=== PATIENT | female | born 1960 | race Two or more races ===

== ENCOUNTER → 2020-01-14 12:15 | Outpatient (BNVA) | payer OTHER, SELFPAY | PROVIDERS: PCP Internal Medicine; Referring Provider Internal Medicine; Visit Provider Dietitian, Registered | DX: Z76.89 Persons encountering health services in other specified circumstances (principal) ==

== ENCOUNTER 2020-03-31 08:14 | Outpatient (REF) | payer OTHER, SELFPAY ==
[2020-03-31 09:11] LABS: MANUAL DIFF FLAG NO
[2020-03-31 09:14] LABS: Basophils Absolute Auto 0.1 X10*3/uL (0.0-0.2); Basophils Percent Auto 0.8 % (0-2); Eosinophils Absolute Auto 0.2 X10*3/uL (0.0-0.4); Eosinophils Percent Auto 2.4 % (0-4); Hematocrit 46.8 % (37-47); Hemoglobin 15.3 g/dl (12.0-16.0); Imm Gran Abs Auto 0.02 X10*3/uL (0.00-0.03); Imm Gran Pct Auto 0.3 % (0.0-0.4); Immature Retic Fraction 9.6 % (3.0-15.9); Lymphocytes Absolute Auto 2.1 X10*3/uL (1.2-4.9); Lymphocytes Percent Auto 33.2 % (20-40); Mean Corpuscular HGB Conc 32.7 g/dl (31.0-35.0); Mean Corpuscular Hemoglobin 27.9 pg (27.0-33.0); Mean Corpuscular Volume 85.2 fL (80-98); Mean Platelet Volume 9.3 fL (9.4-12.3); Monocytes Absolute Auto 0.6 X10*3/uL (0.1-1.2); Monocytes Percent Auto 9.1 % (2-11); Neutrophils Absolute Auto 3.4 X10*3/uL (2.0-8.3); Neutrophils Percent Auto 54.2 % (45-73); Platelet Count 269 X10*3/uL (160-400); Red Blood Count 5.49 X10*6/uL (4.20-5.50); Retic HGB Equivalent 32.7 pg (30.0-35.0); Reticulocyte Percent 1.6 % (0.5-1.8); Reticulocytes Absolute 0.086 X10*6/uL (0.026-0.095); White Blood Count 6.3 X10*3/uL (4.8-10.8)
[2020-03-31 09:43] LABS: Alanine Aminotransferase 12 U/L (0-31); Albumin Level 4.3 g/dL (3.5-5.0); Alkaline Phosphatase 81 U/L (39-117); Anion Gap 12 (12-20); Aspartate Amino Transferase 16 U/L (5-31); Bilirubin Total 0.7 mg/dL (0.0-1.0); Blood Urea Nitrogen 18 mg/dL (9-16); Calcium 9.9 mg/dL (8.4-10.2); Carbon Dioxide 32 mmol/L (22-29); Chloride 103 mmol/L (96-108); Cholesterol 237 mg/dL; Estimated Glomerular Filt Rate > 60; Glucose Random 94 mg/dL (60-115); HDL Cholesterol 87 mg/dL; Iron 112 mcg/dL (30-160); LDL Cholesterol Calculated 134 mg/dl; Percent Iron Saturation 29 % (15-50); Potassium 4.6 mmol/l (3.3-5.1); Sodium 142 mmol/L (135-145); Total Iron Binding Capacity 381 mcg/dL (228-428); Total Protein 7.5 g/dL (6.5-8.0); Triglycerides 81 mg/dL; Unsaturated Iron Binding 269 ug/dL
[2020-03-31 10:05] LABS: Ferritin 72 ng/mL (10-250); Free T4 (Free Thyroxine) 0.96 ng/dL (0.71-1.85); Thyroid Stimulating Hormone 2.55 uIU/mL (0.32-4.0); Vitamin D 25-OH Total 34.8 ng/mL (>30)
[2020-03-31 11:03] LABS: Folate > 20.0 ng/mL (> or = 4.0); Vitamin B12 632 pg/mL (200-900)
== END 2020-03-31 08:15 | disposition home or self-care (01) ==
LOC: HO.LAB 08:14
PROVIDERS: PCP Internal Medicine; Visit Provider Internal Medicine
DX: E78.00 Pure hypercholesterolemia, unspecified (principal); E03.9 Hypothyroidism, unspecified; I10 Essential (primary) hypertension; R79.89 Other specified abnormal findings of blood chemistry
CPT/HCPCS: 36415; 80053; 80061; 82306; 82607; 82728; 82746; 83540; 84439; 84443; 85025; 85045

== ENCOUNTER → 2020-05-21 09:07 | Outpatient (REF) | payer OTHER, SELFPAY ==
--- NOTE | 2020-05-21 09:14 | CA_ITS ---
Acquisition Time: 2020-05-21 09:22:19 Total Exercise Time: 00:07:00 Test Indications: Chest Pain Medications: GABAPENTIN LEVOTHYROXINE SIMVASTATIN Protocol: DARWIN Max HR: 151 BPM 93% of Pred: 161 BPM Max BP: 152/064 mmHG Max Work Load: 8.5 METS Exercise stress test using Darwin protocol, total of 7 min METS 8.5 and TAPHR up to 93 %. Pt tolerated well, denies any anginal sx. EKG with isolated PVC's, no ischemic changes seen in peak exercise or in recovery. Normotensive response to exercise. Test reviewed with DR. Dill Referred By: Tory Lyle Overread By: Tiana Faye
== END ==
LOC: HO.CARD 09:07
PROVIDERS: Visit Provider Internal Medicine
DX: R07.9 Chest pain, unspecified (principal)
CPT/HCPCS: 93017

== ENCOUNTER 2020-06-10 15:49 | Outpatient (REF) | payer OTHER, SELFPAY ==
--- NOTE | ~2020-06-10 | MM_ITS ---
EXAMINATION: MM SCREENING DIGITAL BREAST TOMOSYNTHESIS, BILATERAL CLINICAL INFORMATION: Screening. Asymptomatic. The lifetime risk of breast cancer based on the Tyrer-Cuzick Model is 4%. COMPARISON: Mammography: 01/31/2018, 12/29/2016 TECHNIQUE: Digital breast tomosynthesis is performed in both the craniocaudal and mediolateral oblique views along with computer-aided detection (CAD). Synthesized 2D images are generated from the tomosynthesis. FINDINGS: The breasts are almost entirely fatty (ACR BI-RADS breast composition Category a). Background stromal markings are stable. There are incidental bilateral scattered round and vascular calcifications. There are no significant masses, abnormal calcifications, or other abnormalities. The axillary and skin contours are unremarkable. No significant changes. MM/MM tomosynthesis screening BI IMPRESSION: No mammographic evidence of malignancy. ASSESSMENT: BI-RADS 1: Negative RECOMMENDATION: Routine annual mammography screening. This patient's information was entered into a reminder system with a target due date for their next mammogram.
== END 2020-06-10 15:50 | disposition home or self-care (01) ==
LOC: HO.MAMMO 15:49
PROVIDERS: PCP Internal Medicine; Visit Provider Internal Medicine
DX: Z12.31 Encounter for screening mammogram for malignant neoplasm of breast (principal)
CPT/HCPCS: 77063; 77067

== ENCOUNTER 2020-10-04 10:05 | Outpatient (REF) | payer OTHER, SELFPAY ==
--- NOTE | ~2020-10-04 | XR_ITS ---
EXAMINATION: XR SHOULDER, BILATERAL CLINICAL INFORMATION: Bilateral shoulder pain. COMPARISON: Right shoulder 05/18/2009. TECHNIQUE: 4 views of each shoulder. FINDINGS: Right Shoulder: Mild acromioclavicular and glenohumeral osteoarthritis which has progressed since the previous study. No fracture or focal osseous lesion. No suspicious soft tissue calcification. Left Shoulder: Mild glenohumeral and acromioclavicular osteoarthritis. No fracture. No focal osseous lesion or suspicious soft tissue calcification. XR/XR shoulder LT min 2V IMPRESSION: Mild symmetric glenohumeral and acromioclavicular osteoarthritis.
--- NOTE | ~2020-10-04 | XR_ITS ---
EXAMINATION: XR SHOULDER, BILATERAL CLINICAL INFORMATION: Bilateral shoulder pain. COMPARISON: Right shoulder 05/18/2009. TECHNIQUE: 4 views of each shoulder. FINDINGS: Right Shoulder: Mild acromioclavicular and glenohumeral osteoarthritis which has progressed since the previous study. No fracture or focal osseous lesion. No suspicious soft tissue calcification. Left Shoulder: Mild glenohumeral and acromioclavicular osteoarthritis. No fracture. No focal osseous lesion or suspicious soft tissue calcification. XR/XR shoulder RT min 2V IMPRESSION: Mild symmetric glenohumeral and acromioclavicular osteoarthritis.
== END 2020-10-04 10:06 | disposition home or self-care (01) ==
LOC: HO.XRAY 10:05
PROVIDERS: PCP Internal Medicine; Visit Provider Internal Medicine
DX: M25.511 Pain in right shoulder (principal); M25.512 Pain in left shoulder
CPT/HCPCS: 73030

== ENCOUNTER 2021-05-19 09:26 | Outpatient (REF) | payer OTHER, SELFPAY ==
--- NOTE | ~2021-05-19 | XR_ITS ---
EXAMINATION: XR SHOULDER, RIGHT CLINICAL INFORMATION: Shoulder pain COMPARISON: 10/04/2020 TECHNIQUE: AP external rotation, Grashey, scapular Y, and axillary views of the right shoulder. FINDINGS: Normal alignment. Mild degenerative sclerosis and spurring along the greater tuberosity of the humeral head. Minimal spurring along the glenoid rim. Mild acromioclavicular osteoarthritis. No fracture. No focal osseous lesion or suspicious soft tissue calcification. XR/XR shoulder RT min 2V IMPRESSION: Mild glenohumeral and acromioclavicular osteoarthritis. No change.
[2021-05-19 09:54] LABS: MANUAL DIFF FLAG NO
[2021-05-19 10:15] LABS: Basophils Percent Auto 0.7 % (0-2); Eosinophils Absolute Auto 0.1 X10*3/uL (0.0-0.4); Eosinophils Percent Auto 1.8 % (0-4); Hematocrit 45.4 % (37.0-47.0); Hemoglobin 14.5 g/dl (12.0-16.0); Imm Gran Abs Auto 0.02 X10*3/uL (0.00-0.03); Imm Gran Pct Auto 0.3 % (0.0-0.4); Lymphocytes Absolute Auto 2.2 X10*3/uL (1.2-4.9); Mean Corpuscular HGB Conc 31.9 g/dl (31.0-35.0); Mean Corpuscular Hemoglobin 26.8 pg (27.0-33.0); Mean Corpuscular Volume 83.8 fL (80.0-98.0); Mean Platelet Volume 9.7 fL (9.4-12.3); Monocytes Absolute Auto 0.5 X10*3/uL (0.1-1.2); Monocytes Percent Auto 8.2 % (2-11); Neutrophils Absolute Auto 3.2 x10*3/uL (2.0-8.3); Platelet Count 273 X10*3/uL (160-400); Red Blood Count 5.42 X10*6/uL (4.20-5.50); Red Cell Distribution Width 14.2 % (11.0-16.0)
[2021-05-19 10:50] LABS: Alanine Aminotransferase 12 U/L (0-31); Albumin Level 4.3 g/dL (3.5-5.0); Alkaline Phosphatase 73 U/L (39-117); Anion Gap 10 (12-20); Aspartate Amino Transferase 17 U/L (5-31); Bilirubin Total 0.6 mg/dL (0.0-1.0); Blood Urea Nitrogen 19 mg/dL (9-16); Carbon Dioxide 30 mmol/L (22-29); Chloride 106 mmol/L (96-108); Cholesterol 240 mg/dL; Estimated Glomerular Filt Rate > 60; Glucose Random 96 mg/dL (60-115); HDL Cholesterol 86 mg/dL; LDL Cholesterol Calculated 142 mg/dl; Potassium 4.5 mmol/L (3.3-5.1); Sodium 141 mmol/L (135-145); Total Protein 7.4 g/dL (6.5-8.0); Triglycerides 64 mg/dL
[2021-05-19 11:03] LABS: Free T4 (Free Thyroxine) 1.01 ng/dL (0.71-1.85); Vitamin D 25-OH Total 28.8 ng/mL (>30)
[2021-05-19 11:42] LABS: Folate > 20.0 ng/mL (> or = 4.0); Vitamin B12 578 pg/mL (200-900)
== END 2021-05-19 09:27 | disposition home or self-care (01) ==
LOC: HO.XRAY 09:26
PROVIDERS: PCP Internal Medicine; Visit Provider Internal Medicine
DX: M25.511 Pain in right shoulder (principal); E78.00 Pure hypercholesterolemia, unspecified
CPT/HCPCS: 36415; 73030; 80053; 80061; 82306; 82607; 82746; 84439; 84443; 85025

== ENCOUNTER 2021-06-15 09:22 | Outpatient (REF) | payer OTHER, SELFPAY ==
[2021-06-15 09:58] LABS: MANUAL DIFF FLAG NO
[2021-06-15 10:14] LABS: Basophils Absolute Auto 0.1 X10*3/uL (0.0-0.2); Basophils Percent Auto 0.7 % (0-2); Eosinophils Absolute Auto 0.1 X10*3/uL (0.0-0.4); Eosinophils Percent Auto 1.3 % (0-4); Hematocrit 44.6 % (37.0-47.0); Hemoglobin 14.1 g/dl (12.0-16.0); Imm Gran Abs Auto 0.01 X10*3/uL (0.00-0.03); Imm Gran Pct Auto 0.1 % (0.0-0.4); Lymphocytes Absolute Auto 1.9 X10*3/uL (1.2-4.9); Lymphocytes Percent Auto 27.8 % (20-40); Mean Corpuscular HGB Conc 31.6 g/dl (31.0-35.0); Mean Corpuscular Hemoglobin 27.1 pg (27.0-33.0); Mean Corpuscular Volume 85.8 fL (80.0-98.0); Mean Platelet Volume 9.4 fL (9.4-12.3); Monocytes Absolute Auto 0.4 X10*3/uL (0.1-1.2); Monocytes Percent Auto 6.4 % (2-11); Neutrophils Absolute Auto 4.2 x10*3/uL (2.0-8.3); Neutrophils Percent Auto 63.7 % (45-73); Platelet Count 272 X10*3/uL (160-400); Red Cell Distribution Width 14.1 % (11.0-16.0); White Blood Count 6.7 X10*3/uL (4.8-10.8)
[2021-06-15 10:51] LABS: Alanine Aminotransferase 18 U/L (0-31); Albumin Level 4.2 g/dL (3.5-5.0); Alkaline Phosphatase 77 U/L (39-117); Anion Gap 10 (12-20); Aspartate Amino Transferase 18 U/L (5-31); Bilirubin Total 0.5 mg/dL (0.0-1.0); Blood Urea Nitrogen 23 mg/dL (9-16); Calcium 9.9 mg/dL (8.4-10.2); Carbon Dioxide 32 mmol/L (22-29); Chloride 104 mmol/L (96-108); Estimated Glomerular Filt Rate > 60; Glucose Random 110 mg/dL (60-115); Potassium 4.1 mmol/L (3.3-5.1); Sodium 142 mmol/L (135-145); Total Protein 7.1 g/dL (6.5-8.0)
[2021-06-15 11:01] LABS: Thyroid Stimulating Hormone 0.48 uIU/mL (0.32-4.0)
== END 2021-06-15 09:23 | disposition home or self-care (01) ==
LOC: HO.LAB 09:22
PROVIDERS: PCP Internal Medicine; Visit Provider Clinical Nurse Specialist Psychiatric/Mental Health, Adult
DX: Z79.899 Other long term (current) drug therapy (principal)
CPT/HCPCS: 36415; 80053; 84443; 85025

== ENCOUNTER 2021-11-10 10:32 | Outpatient (REF) | payer OTHER, SELFPAY ==
[2021-11-10 11:35] LABS: Alanine Aminotransferase 14 U/L (0-31); Albumin Level 4.3 g/dL (3.5-5.0); Alkaline Phosphatase 84 U/L (39-117); Anion Gap 14 (12-20); Aspartate Amino Transferase 16 U/L (5-31); Bilirubin Total 0.7 mg/dL (0.0-1.0); Blood Urea Nitrogen 15 mg/dL (9-16); Calcium 9.9 mg/dL (8.4-10.2); Carbon Dioxide 27 mmol/L (22-29); Chloride 106 mmol/L (96-108); Cholesterol 230 mg/dL; Estimated Glomerular Filt Rate > 60; Glucose Random 96 mg/dL (60-115); HDL Cholesterol 88 mg/dL; LDL Cholesterol Calculated 129 mg/dl; Potassium 4.5 mmol/L (3.3-5.1); Sodium 142 mmol/L (135-145); Total Protein 7.2 g/dL (6.5-8.0); Triglycerides 66 mg/dL
[2021-11-10 11:49] LABS: Estimated Average Glucose 105 mg/dL; Hemoglobin A1c % 5.3 %
[2021-11-10 11:55] LABS: Free T4 (Free Thyroxine) 0.98 ng/dL (0.71-1.85); Thyroid Stimulating Hormone 1.15 uIU/mL (0.32-4.0)
== END 2021-11-10 10:33 | disposition home or self-care (01) ==
LOC: HO.LAB 10:32
PROVIDERS: PCP Internal Medicine; Visit Provider Internal Medicine
DX: E03.9 Hypothyroidism, unspecified (principal); E78.00 Pure hypercholesterolemia, unspecified
CPT/HCPCS: 36415; 80053; 80061; 83036; 84439; 84443

== ENCOUNTER → 2021-12-21 14:09 | Outpatient (BNVA) | payer OTHER, SELFPAY | PROVIDERS: PCP Internal Medicine; Visit Provider Physician Assistant Surgical | DX: E66.9 Obesity, unspecified (principal); Z68.31 Body mass index [BMI] 31.0-31.9, adult; Z98.84 Bariatric surgery status; Z90.3 Acquired absence of stomach [part of] | CPT/HCPCS: 99212 ==

== ENCOUNTER 2022-01-06 08:05 | Outpatient (REF) | payer OTHER, SELFPAY ==
[2022-01-06 08:19] LABS: MANUAL DIFF FLAG NO
[2022-01-06 09:13] LABS: Basophils Percent Auto 0.8 % (0-2); Eosinophils Absolute Auto 0.1 X10*3/uL (0.0-0.4); Eosinophils Percent Auto 2.2 % (0-4); Hematocrit 42.9 % (37.0-47.0); Hemoglobin 13.9 g/dl (12.0-16.0); Imm Gran Abs Auto 0.01 X10*3/uL (0.00-0.03); Imm Gran Pct Auto 0.2 % (0.0-0.4); Lymphocytes Absolute Auto 1.9 X10*3/uL (1.2-4.9); Mean Corpuscular HGB Conc 32.4 g/dl (31.0-35.0); Mean Corpuscular Hemoglobin 26.7 pg (27.0-33.0); Mean Corpuscular Volume 82.3 fL (80.0-98.0); Monocytes Absolute Auto 0.5 X10*3/uL (0.1-1.2); Neutrophils Absolute Auto 2.4 x10*3/uL (2.0-8.3); Neutrophils Percent Auto 48.8 % (45-73); Platelet Count 269 X10*3/uL (160-400); Red Blood Count 5.21 X10*6/uL (4.20-5.50); Red Cell Distribution Width 14.4 % (11.0-16.0)
[2022-01-06 09:37] LABS: Iron 101 mcg/dL (30-160); Percent Iron Saturation 28 % (15-50); Total Iron Binding Capacity 366 mcg/dL (228-428); Unsaturated Iron Binding 265 ug/dL
[2022-01-06 09:48] LABS: Ferritin 42 ng/mL (10-250); Vitamin D 25-OH Total 44.2 ng/mL (>30)
[2022-01-06 10:04] LABS: Folate 17.1 ng/mL (> or = 4.0); Vitamin B12 489 pg/mL (200-900)
[2022-01-11 00:02] LABS: Zinc 66 mcg/dL (60-130)
[2022-01-11 09:16] LABS: Vitamin A 51 mcg/dL (38-98)
[2022-01-11 10:46] LABS: Vitamin B1 <6 nmol/L (8-30)
== END 2022-01-06 08:06 | disposition home or self-care (01) ==
LOC: HO.LAB 08:05
PROVIDERS: Visit Provider Physician Assistant Surgical
DX: Z90.3 Acquired absence of stomach [part of] (principal)
CPT/HCPCS: 36415; 82306; 82607; 82728; 82746; 83540; 84425; 84590; 84630; 85025

== ENCOUNTER 2022-01-27 10:48 | Outpatient (REF) | payer OTHER, SELFPAY ==
--- NOTE | ~2022-01-27 | MM_ITS ---
EXAMINATION: MM SCREENING DIGITAL BREAST TOMOSYNTHESIS, BILATERAL CLINICAL INFORMATION: Screening. Asymptomatic. The lifetime risk of breast cancer based on the Tyrer-Cuzick Model is 3.4%. COMPARISON: Mammography: June 10, 2020 and studies dating back to December 07, 2015 TECHNIQUE: Digital breast tomosynthesis is performed in both the craniocaudal and mediolateral oblique views along with computer-aided detection (CAD). Synthesized 2D images are generated from the tomosynthesis. FINDINGS: The breasts are almost entirely fatty (ACR BI-RADS breast composition Category a). There are no significant masses, abnormal calcifications, or other abnormalities. MM/MM tomosynthesis screening BI IMPRESSION: No significant changes ASSESSMENT: BI-RADS 1: Negative RECOMMENDATION: Routine annual mammography screening. This patient's information was entered into a reminder system with a target due date for their next mammogram.
== END 2022-01-27 10:49 | disposition home or self-care (01) ==
LOC: HO.MAMMO 10:48
PROVIDERS: PCP Internal Medicine; Visit Provider Internal Medicine
DX: Z12.31 Encounter for screening mammogram for malignant neoplasm of breast (principal)
CPT/HCPCS: 77063; 77067

== ENCOUNTER → 2022-02-08 14:45 | Outpatient (BNVA) | payer OTHER, SELFPAY | PROVIDERS: PCP Internal Medicine; Referring Provider Internal Medicine; Visit Provider Physician Assistant Surgical | DX: E66.9 Obesity, unspecified (principal); Z68.30 Body mass index [BMI] 30.0-30.9, adult; Z90.3 Acquired absence of stomach [part of] | CPT/HCPCS: 99212 ==

== ENCOUNTER 2022-12-19 07:24 | Outpatient (AMB) | payer OTHER, SELFPAY ==
--- NOTE | 2022-12-19 07:25 | A.OFFPC_ITS ---
Intake Visit Reasons: generalized pain Intake Note: patient states she has pain on the left side of her neck, radiating down arm and down her left leg. She states that she had seen a specialist before about her neck because Dr Lyle had sent her and they scared her with the surgery they were planning on doing. She is considering it now due to having difficulty walking at times. Allergies Penicillins [PENICILLINS] Adverse Reaction (Unknown, Verified 12/19/22 07:41) VOMITING Medication List - Last Reconciled 12/19/22 by TETE Connelly biotin mg PO cholecalciferol (vitamin D3) 2,000 units PO DAILY 90 days cyclobenzaprine 5 mg PO BEDTIME PRN ibuprofen 600 mg PO Q8H PRN levalbuterol tartrate 45 mcg/actuation (Xopenex HFA) 2 inhalations inhalation Q6H levothyroxine 112 mcg PO QAM mirtazapine 15 mg PO BEDTIME simvastatin 20 mg PO BEDTIME 90 days thiamine HCl (vitamin B1) 100 mg PO DAILY Tobacco use date assessed: 12/19/22 Dental Screening Dental Screen Date: 12/19/22 Did you have a dental visit in the last 12 months?: Yes Did you have a dental problem in the last 6 months where you did not have access to dental care?: No Was dental information given to patient?: Patient has dentist HPI HPI Comments History of Present Illness Details 61-year-old obese female with status pos t sleeve gastrectomy April 2017, history of hypothyroid, hypertension, hypercholesterolemia obstructive sleep apnea, cervical neck pain . Patient of Dr. Lyle last seen in January. Patient presents today for Telehealth visit. Patient reports has always had neck pain and has seen neurosurgery in the past, however she never proceeded with surgical intervention. Patient reports today mild low back pain and worsening left leg pain and tingling x 1 month. Patient denies and left leg numbness or bowel or bladder problems. Patient reports occasional pain with ROM. Patient reports takes Tylenol with no improvement of pain. [facility] Medical History (Updated 12/19/22 @ 07:35 by TETE Connelly) Insomnia Cervical disc disorder with radiculopathy of mid-cervical region Fibromyalgia History of intussusception Carpal tunnel syndrome, right Peripheral vascular disease Insomnia Obstructive sleep apnea Hypothyroid Hypertension Hypercholesterolemia Varicose veins of lower extremity Arthritis Surgical History H/O oophorectomy History of colectomy History of sleeve gastrectomy History of tubal ligation Family History (Updated 12/19/22 @ 07:27 by Edwige Hall [facility]) Father Medical history unknown Mother Colon cancer Social History Housing: Apartment Alcohol intake: current Patient Tobacco Use Status: Former Tobacco user Tobacco use type: Cigarette Years Smoked: quit 17 years old e-Cigarette/Vaping Use: Never Used Second Hand Smoke Exposure: No service: No Current occupational status: disabled Cognitive needs: No Hearing needs: No Vision needs: No Questionnaire PHQ-9 Over the last 2 weeks, how often have you been bothered by any of the following problems? 1. Little interest or pleasure in doing things: nearly every day 2. Feeling down, depressed, or hopeless: nearly every day 3. Trouble falling or staying asleep, or sleeping too much: nearly every day 4. Feeling tired or having little energy: nearly every day 5. Poor appetite or overeating: nearly every day 6. Feeling bad about yourself - or that you are a failure or have let yourself or your family down: nearly every day 7. Trouble concentrating on things, such as reading the newspaper or watching television: more than half the days 8. Moving or speaking so slowly that other people could have noticed. Or the opposite - being so fidgety or restless that you have been moving around a lot more than usual: several days 9. Thoughts that you would be better off or of hurting yourself in some way: several days Total score: 22 Depression Screening Interpretation: Positive Source: Developed by Drs. Robert Cotton, Violeta Pineda, Radames Casas and colleagues, with an educational sarah from [employer]. Thrive Questionnaire Date Thrive assessed: 12/19/22 I am a: Patient What is your living situation today?: I have a steady place to live Within the past 12 months, did the food you bought not last and you didn't have the money to get more?: Never true Within the past 12 months, did you worry whether your food would run out before you got money to buy more?: Never true Do you have trouble paying for medicines?: No Do you have trouble getting transportation to medical appointments?: No Do you have trouble paying your heating and electricity bill?: No Do you have trouble taking care of your child, family member or friend?: No Do you have trouble with day-to-day activities such as bathing, preparing meals, shopping, managing finances, etc.?: No Are you currently unemployed and looking for a job?: No Are you interested in more education?: No Currently or been in a relationship where the following occur: no concerns reported AUDIT C Alcohol Use Questionnaire (AUDIT-C) 1. How often do you have a drink containing alcohol?: Monthly or less 2. How many drinks containing alcohol do you have on a typical day when you are drinking?: 1 or 2 3. How often do you have six or more drinks on one occasion?: Never Total Score: 1 MARC-7 AMB Questionnaire MARC-7 Date MARC - 7 assessed: 12/19/22 Feeling nervous, anxious, or on edge: 0 = Not at all Not being able to stop or control worryin = Not at all Worrying too much about different things: 0 = Not at all Trouble relaxin = Not at all Being so restless that it is hard to sit still: 0 = Not at all Becoming easily annoyed or irritable: 0 = Not at all Feeling afraid as if something awful might happen: 0 = Not at all Total MARC-7 score (0-4 normal; 5-9 mild; 10-14 moderate; 15-21 severe): 0 Source: Developed by Drs. Robert Cottno, Violeta Pineda, Radames Casas and colleagues, with an educational sarah from [employer]. Review of Systems Card Reports no additional complaints Resp Reports no additional complaints Musc Reports back pain (low back pain ) and Reports radiating pain into limb (radiating to left leg ) Physical exam (Primary Care) Vital Signs: Unable to complete as this is Telehealth exam. Tobacco/Smoking Status: Tobacco use Status Tobacco use date assessed 12/19/22 12/19/22 07:29 Patient Tobacco Use Status Former Tobacco user 12/19/22 07:26 Tobacco use type Cigarette 12/19/22 07:26 e-Cigarette/Vaping Use Never Used 12/19/22 07:26 PHQ-9: PHQ-9 Score PHQ-9: Total score 22 12/19/22 07:29 Depression Screening Interpretation: Positive Thrive Assessment: Date of Thrive Assessment Date Thrive assessed 12/19/22 12/19/22 07:29 Currently or been in a relationship where the following occur: no concerns reported Telehealth Telehealth Location of provider rendering services: practice address Location of patient: address on file Patient Identification confirmed using: Name, : Yes Telehealth method: voice only (Android) Patient verbally consented to treatment: Yes Patient verbally consented to billing insurance company: Yes Patient informed of any privacy concerns related to visit: Yes Minutes spent on Phone/Video with Pt.: 10 Assessment and Plan Assessment & Plan (1) Lumbar radiculopathy: Code(s): M54.16 - Radiculopathy, lumbar region Plan: Take ibuprofen as needed for pain with food to prevent GI upset, cyclobenzaprine as needed at bedtime. Patient's symptoms most consistent with lumbar radiculopathy will refer patient to physical therapy if no improvement following physical therapy will consider additional imaging. Patient advised to keep scheduled follow-up with PCP or follow-up sooner if n eeded. And symptoms reviewed with patient when to seek emergency medical attention. (2) Obstructive sleep apnea: Comment: on the CPAP q night > 4 hours and benefits patient Code(s): G47.33 - Obstructive sleep apnea (adult) (pediatric) Plan: Continue to use CPAP for > then 4 hours per night with good effect. (3) Hypercholesterolemia: Code(s): E78.00 - Pure hypercholesterolemia, unspecified Plan: Continue on statin. Continue to follow low cholesterol diet Plan Keep scheduled follow up with pcp or follow up sooner if needed. Orders: Orders PT Evaluation and Treatment Today M54.16 - Radiculopathy, lumbar region Medications: New ibuprofen 600 mg PO Q8H PRN 14 tabs 0RF pain M54.16 - Radiculopathy, lumbar region cyclobenzaprine 5 mg PO BEDTIME PRN 7 tabs 0RF muscle spasm M54.16 - Radiculopathy, lumbar region Coding Level of Care Code Tele Est Pt Level 4 (67387) Diagnoses Lumbar radiculopathy M54.16 Obstructive sleep apnea G47.33 Hypercholesterolemia E78.00
== END 2022-12-19 07:37 | disposition home or self-care (01) ==
LOC: HO.HMGH 07:24
PROVIDERS: PCP Internal Medicine; Visit Provider Nurse Practitioner Family
DX: M54.16 Radiculopathy, lumbar region (principal); G47.33 Obstructive sleep apnea (adult) (pediatric); E78.00 Pure hypercholesterolemia, unspecified
CPT/HCPCS: 99214

== ENCOUNTER 2022-12-29 09:26 | Outpatient (REF) | payer OTHER, SELFPAY | END 2022-12-29 09:27 | disposition home or self-care (01) | LOC: HO.XRAY 09:26 | PROVIDERS: PCP Internal Medicine; Visit Provider Nurse Practitioner Family | DX: Z13.89 Encounter for screening for other disorder (principal) ==

== ENCOUNTER 2023-01-02 09:22 | Outpatient (REF) | payer OTHER, SELFPAY ==
--- NOTE | ~2023-01-02 | XR_ITS ---
EXAMINATION: XR cervical spine 2V CLINICAL INFORMATION: Pain COMPARISON: Cervical spine radiographs 06/30/2016 TECHNIQUE: 4 views of the cervical spine were obtained. FINDINGS: The cervical spine is visualized to the level of C6-C7 on the lateral view. Minimal retrolisthesis of C4 on C5 unchanged. Vertebral body heights are maintained. Moderate degenerative disc disease at C4-C5 through C6-C7, manifested by loss of disc space height and facet arthropathy, progressed from prior. No prevertebral soft tissue swelling. XR/XR cervical spine 2V IMPRESSION: 1. Moderate spondylosis of the cervical spine, as above detailed, progressed from prior. 2. Minimal retrolisthesis of C4 on C5 unchanged.
--- NOTE | ~2023-01-02 | XR_ITS ---
EXAMINATION: XR LUMBOSACRAL SPINE CLINICAL INFORMATION: Reason for Exam M54.16 - Radiculopathy, lumbar region COMPARISON: Lumbar spine radiographs 05/01/2016 TECHNIQUE: 3 views of the lumbar spine FINDINGS: 5 nonrib-bearing lumbar-type vertebral bodies. Vertebral body heights are maintained. Alignment is maintained. Moderate multilevel degenerative disc disease progressed from prior with loss of disc space height and facet arthropathy worst at L4-L5. Upper abdominal surgical clips. Mild degenerative changes of the hips with subchondral sclerosis. XR/XR lumbar spine 2-3V IMPRESSION: 1. Moderate multilevel degenerative disc disease progressed from prior with loss of disc space height and facet arthropathy worst at L4-L5. 2. Mild degenerative changes of the hips with subchondral sclerosis.
== END 2023-01-02 09:23 | disposition home or self-care (01) ==
LOC: HO.XRAY 09:22
PROVIDERS: PCP Internal Medicine; Visit Provider Nurse Practitioner Family
DX: M54.16 Radiculopathy, lumbar region (principal); M54.2 Cervicalgia
CPT/HCPCS: 72040; 72100

== ENCOUNTER 2023-01-18 12:30 | Outpatient (AMB) | payer OTHER, SELFPAY ==
[2023-01-18 13:01] VITALS: BP 136/91; PULSE 75; RESP 16; O2SAT 99; BMI 29.1
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
== END 2023-01-18 13:47 | disposition home or self-care (01) ==
PROVIDERS: PCP Internal Medicine; Visit Provider Registered Nurse Emergency
DX: M54.12 Radiculopathy, cervical region (principal); M25.50 Pain in unspecified joint
CPT/HCPCS: 99204

== ENCOUNTER → 2023-01-18 12:30 | Outpatient (BNVA) | payer OTHER, SELFPAY | PROVIDERS: PCP Internal Medicine; Visit Provider Registered Nurse Emergency ==

== ENCOUNTER 2023-03-06 12:46 | Outpatient (REF) | payer OTHER, SELFPAY ==
--- NOTE | ~2023-03-06 | XR_ITS ---
EXAMINATION: XR KNEE, RIGHT XR KNEE, LEFT CLINICAL INFORMATION: Rheumatoid arthritis COMPARISON: X-rays of right and left knees on 12/16/2010 TECHNIQUE: Upright x-rays of right and left knees, tunnel view and sunrise view of right and left knees FINDINGS: FINDINGS: BONES: Bony structures are intact. Osteophytes are seen in right and left medial femoral condyles and lateral articular border of right and left patellae. There is no focal bone destruction or periosteal reaction seen. JOINTS: Alignment of joints is normal. There is marked decrease in medial compartment right and left knee joint spaces. SOFT TISSUE: Bilateral suprapatellar fat pad shows increase in density. No radiopaque foreign body or abnormal air collection is seen. XR/XR knee LT 4V IMPRESSION: 1. Interval progression of right and left medial compartment tibiofemoral joints and patellofemoral joint osteoarthritis. 2. Interval development of bilateral knee effusions. 3. No fracture or dislocation or signs of osteomyelitis are found.
--- NOTE | ~2023-03-06 | XR_ITS ---
EXAMINATION: XR FOOT, LEFT CLINICAL INFORMATION: Rheumatoid arthritis COMPARISON: None available. TECHNIQUE: AP, lateral, and oblique views of the left foot. FINDINGS: BONES: Bony structures are intact. Small sharp plantar calcaneal spur is present. Sharp marginal osteophytes are seen at dorsal border of left navicular, left cuneiforms and base of left metatarsals, visible only on the lateral x-ray. There is no focal bone destruction or periosteal reaction seen. JOINTS: There is moderate hallux valgus valgus deformity. The left first metatarsophalangeal angle is 21 degrees.. SOFT TISSUE: Soft tissue bunion is seen at the medial left first metatarsal head. No radiopaque foreign body or abnormal air collection is seen. XR/XR foot LT min 3V IMPRESSION: 1. Left foot intertarsal and tarsometatarsal joint osteoarthritis is seen. 2. Moderate hallux valgus valgus deformity of left foot with formation of soft tissue bunion. 3. No fracture or dislocation or signs of osteomyelitis are found.
--- NOTE | ~2023-03-06 | XR_ITS ---
EXAMINATION: XR KNEE, RIGHT XR KNEE, LEFT CLINICAL INFORMATION: Rheumatoid arthritis COMPARISON: X-rays of right and left knees on 12/16/2010 TECHNIQUE: Upright x-rays of right and left knees, tunnel view and sunrise view of right and left knees FINDINGS: FINDINGS: BONES: Bony structures are intact. Osteophytes are seen in right and left medial femoral condyles and lateral articular border of right and left patellae. There is no focal bone destruction or periosteal reaction seen. JOINTS: Alignment of joints is normal. There is marked decrease in medial compartment right and left knee joint spaces. SOFT TISSUE: Bilateral suprapatellar fat pad shows increase in density. No radiopaque foreign body or abnormal air collection is seen. XR/XR knee RT 3V IMPRESSION: 1. Interval progression of right and left medial compartment tibiofemoral joints and patellofemoral joint osteoarthritis. 2. Interval development of bilateral knee effusions. 3. No fracture or dislocation or signs of osteomyelitis are found.
--- NOTE | ~2023-03-06 | XR_ITS ---
EXAMINATION: XR CHEST CLINICAL INFORMATION: Rheumatoid arthritis COMPARISON: Chest x-ray on 04/27/2017 TECHNIQUE: 2 views of the chest were obtained. FINDINGS: vascularity. LUNGS: Lungs are clear. No pneumothorax is seen. BONES: Bony skeleton is intact. XR/XR chest 2V IMPRESSION: Unchanged Normal chest x-ray.
--- NOTE | ~2023-03-06 | XR_ITS ---
EXAMINATION: XR WRIST, RIGHT XR HAND, RIGHT CLINICAL INFORMATION: Rheumatoid arthritis COMPARISON: None available. TECHNIQUE: PA, lateral, and oblique views of the right wrist and PA, lateral, and oblique views of the right hand, frontal ulna deviation x-ray of the right scaphoid FINDINGS: RIGHT WRIST: The bones and soft tissues are normal. No fracture. Alignment is anatomic. Joint spaces are maintained. No erosions or soft tissue calcifications. RIGHT HAND: The bones and soft tissues are normal. No fracture. Alignment is anatomic. Joint spaces are maintained. No erosions or soft tissue calcifications. XR/XR hand wrist RT IMPRESSION: Normal right hand and wrist.
--- NOTE | ~2023-03-06 | XR_ITS ---
EXAMINATION: XR ANKLE, LEFT CLINICAL INFORMATION: Rheumatoid arthritis COMPARISON: None available. TECHNIQUE: AP, lateral, and mortise views of the left ankle. FINDINGS: BONES: Bony structures are intact. Small sharp plantar calcaneal spur is present. There is no focal bone destruction or periosteal reaction seen. JOINTS: Alignment of joints is normal. SOFT TISSUE: Soft tissue is normal. No radiopaque foreign body or abnormal air collection is seen. XR/XR ankle LT min 3V IMPRESSION: 1. Small sharp plantar calcaneal spur is present. 2. No fracture or dislocation or signs of osteomyelitis are found.
--- NOTE | ~2023-03-06 | XR_ITS ---
EXAMINATION: XR WRIST, LEFT XR HAND, LEFT CLINICAL INFORMATION: Rheumatoid arthritis COMPARISON: None available. TECHNIQUE: PA, lateral, and oblique views of the left wrist and PA, lateral, and oblique views of the left hand, frontal ulna deviation x-ray of left scaphoid FINDINGS: LEFT WRIST: The bones and soft tissues are normal. No fracture. Alignment is anatomic. Joint spaces are maintained. No erosions or soft tissue calcifications. LEFT HAND: The bones and soft tissues are normal. No fracture. Alignment is anatomic. Joint spaces are maintained. No erosions or soft tissue calcifications. XR/XR hand wrist LT IMPRESSION: Normal left hand and wrist.
--- NOTE | ~2023-03-06 | XR_ITS ---
EXAMINATION: XR ANKLE, RIGHT CLINICAL INFORMATION: Rheumatoid arthritis COMPARISON: None available. TECHNIQUE: AP, lateral, and mortise views of the right ankle. FINDINGS: BONES: Bony structures are intact. Prominent sharp plantar calcaneal spur is present. There is no focal bone destruction or periosteal reaction seen. JOINTS: Alignment of joints is normal. SOFT TISSUE: Soft tissue is normal. No radiopaque foreign body or abnormal air collection is seen. XR/XR ankle RT min 3V IMPRESSION: 1. Prominent sharp plantar calcaneal spur is present. Line 2. No fracture or dislocation or signs of osteomyelitis are found.
--- NOTE | ~2023-03-06 | XR_ITS ---
EXAMINATION: XR FOOT, RIGHT CLINICAL INFORMATION: Rheumatoid arthritis COMPARISON: None available. TECHNIQUE: AP, lateral, and oblique views of the right foot. FINDINGS: BONES: Bony structures are intact. Prominent sharp plantar calcaneal spur is present. Subcortical erosions and dorsal border osteophytosis are seen in the right navicular. There is no focal bone destruction or periosteal reaction seen. JOINTS: Alignment of joints is normal. SOFT TISSUE: Soft tissue is normal. No radiopaque foreign body or abnormal air collection is seen. XR/XR foot RT min 3V IMPRESSION: 1. Prominent sharp plantar calcaneal spur is present. 2. Proximal right foot intertarsal joint osteoarthritis is present. 3. No fracture or dislocation or signs of osteomyelitis are found.
[2023-03-06 14:11] LABS: MANUAL DIFF FLAG NO
[2023-03-06 14:48] LABS: Basophils Absolute Auto 0.1 X10*3/uL (0.0-0.2); Basophils Percent Auto 0.8 % (0-2); Eosinophils Absolute Auto 0.1 X10*3/uL (0.0-0.4); Eosinophils Percent Auto 1.5 % (0-4); Hematocrit 46.3 % (37.0-47.0); Hemoglobin 14.8 g/dl (12.0-16.0); Imm Gran Abs Auto 0.01 X10*3/uL (0.00-0.03); Imm Gran Pct Auto 0.2 % (0.0-0.4); Lymphocytes Absolute Auto 2.1 X10*3/uL (1.2-4.9); Lymphocytes Percent Auto 34.1 % (20-40); Mean Corpuscular Hemoglobin 26.5 pg (27.0-33.0); Mean Platelet Volume 9.4 fL (9.4-12.3); Monocytes Absolute Auto 0.4 X10*3/uL (0.1-1.2); Monocytes Percent Auto 6.5 % (2-11); Neutrophils Absolute Auto 3.5 x10*3/uL (2.0-8.3); Neutrophils Percent Auto 56.9 % (45-73); Platelet Count 265 X10*3/uL (160-400); Red Blood Count 5.58 X10*6/uL (4.20-5.50); Red Cell Distribution Width 14.7 % (11.0-16.0); White Blood Count 6.2 X10*3/uL (4.8-10.8)
[2023-03-06 15:12] LABS: Alanine Aminotransferase 11 U/L (0-31); Albumin Level 4.1 g/dL (3.5-5.0); Alkaline Phosphatase 84 U/L (39-117); Anion Gap 10 (12-20); Aspartate Amino Transferase 15 U/L (5-31); Bilirubin Total 0.4 mg/dL (0.0-1.0); Blood Urea Nitrogen 13 mg/dL (9-16); C Reactive Protein 0.25 mg/dL (< or = 0.50); Calcium 9.6 mg/dL (8.4-10.2); Carbon Dioxide 29 mmol/L (22-29); Chloride 105 mmol/L (96-108); Estimated Glomerular Filt Rate > 60; Glucose Random 93 mg/dL (60-115); Potassium 3.7 mmol/L (3.3-5.1); Rheumatoid Factor < 13.0 IU/mL (<15.0); Sodium 140 mmol/L (135-145); Total Protein 7.2 g/dL (6.5-8.0)
[2023-03-06 15:43] LABS: Erythrocyte Sedimentation Rate 6 MM/HR (0-20)
[2023-03-07 08:24] LABS: HBS Num1 > 1000.00 mIU/mL (0-7.99); HBc Num1 5.94 S/CO (0.00-0.79); HBsAGNum1 0.53 S/CO (0.00-0.99); Hepatitis A Antibody IgM 0.37 Index (0-0.79); Hepatitis B Surface Antigen Negative (Negative); ~HepC Num1 0.27 S/CO (0.00-0.79); ~Hepatitis A Antibody IgM Nonreactive (Nonreactive); ~Hepatitis B Surface Antibody REACTIVE (Nonreactive); ~Hepatitis C Antibody Nonreactive (Nonreactive)
[2023-03-07 09:48] LABS: HBc Num3 6.07 S/CO; Hepatitis B Core Antibody Reactive (Nonreactive)
[2023-03-08 21:44] LABS: Prot Elec - Albumin 3.9 g/dL (3.8-4.8); Prot Elec - Alpha1 0.2 g/dL (0.2-0.3); Prot Elec - Alpha2 0.8 g/dL (0.5-0.9); Prot Elec - Beta 1 0.4 g/dL (0.4-0.6); Prot Elec - Beta 2 0.4 g/dL (0.2-0.5); Prot Elec - Total Protein 6.7 g/dL (6.1-8.1)
[2023-03-09 07:38] LABS: TS Negative Control Passed; TS Panel A 2; TS Panel B 0; TS Positive Control Passed; TSpotTB Negative (Negative)
[2023-03-09 14:34] LABS: Cyclic Citrullinated Peptide <16 UNITS
[2023-03-12 15:38] LABS: Anti Nuclear Antibody Pattern Nuclear, Speckled; Anti Nuclear Antibody Screen POSITIVE (NEGATIVE); Anti Nuclear Antibody Titer 1:40 titer
[2023-03-12 16:58] LABS: IgA 170 mg/dL (70-320); IgG 1074 mg/dL (600-1540); IgM 107 mg/dL (50-300)
== END 2023-03-06 12:47 | disposition home or self-care (01) ==
LOC: HO.XRAY 12:46
PROVIDERS: PCP Internal Medicine; Visit Provider Student in an Organized Health Care Education/Training Program
DX: Z11.59 Encounter for screening for other viral diseases (principal); Z11.7 Encounter for testing for latent tuberculosis infection; M06.9 Rheumatoid arthritis, unspecified; M25.50 Pain in unspecified joint; Z72.89 Other problems related to lifestyle
CPT/HCPCS: 36415; 71046; 73110; 73130; 73562; 73564; 73610; 73630; 80053; 82784; 84165; 85025; 85652; 86038; 86039; 86140; 86200; 86334; 86431; 86481; 86704; 86706; 86709; 86803; 87340; 99202

== ENCOUNTER 2023-03-06 12:46 | Outpatient (AMB) | payer OTHER, SELFPAY ==
--- NOTE | 2023-03-06 12:48 | A.OFFVIS_ITS ---
Intake Vital Signs 03/06/23 12:51 Height 5 ft 3 in Weight 168 lb 10.458 oz BMI 29.9 BP 118/72 Blood Pressure Location Rt brachial Position Sitting Pulse 79 Pulse Source Pulse Oximeter Temp 97.4 F Temp Source Skin Pulse Oximetry (%) 97 Oxygen Delivery Method Room Air Intake Visit Reasons: Joint Pain Intake Note: New pt presents today for consult. Referred by pain mgmt. Reports neck injury while moving furniture more than 6 years ago. 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 Accompanied by: Self / Same As Patient Allergies Penicillins [PENICILLINS] Adverse Reaction (Unknown, Verified 03/06/23 12:55) VOMITING Medication List - Last Reconciled 03/06/23 by Anish Ferraro MD biotin mg PO cholecalciferol (vitamin D3) 2,000 units PO DAILY 90 days cyclobenzaprine 5 mg PO BEDTIME PRN gabapentin 100 mg PO TID ibuprofen 600 mg PO Q8H PRN levalbuterol tartrate 45 mcg/actuation (Xopenex HFA) 2 inhalations inhalation Q6H levothyroxine 112 mcg PO QAM lidocaine 5% 1 appl topical BID PRN mirtazapine 15 mg PO BEDTIME prednisone 15 mg (3 x 5 mg) PO DAILY simvastatin 20 mg PO BEDTIME 90 days thiamine HCl (vitamin B1) 100 mg PO DAILY HPI HPI Comments History of Present Illness Details This is a 62-year-old female who presents for evaluation of multiple swollen and tender joints. She was referred by Pain Management. Patient states that 6 years ago she had a neck injury after moving heavy furniture at home. She was evaluated by a specialist and surgery was suggested and patient refused. She states that 2 months ago her right shoulder was pulled by her brother and since then she has had right shoulder pain. She states that she has had swelling of both hands for the last 3 years. Morning stiffness of her hands lasts 5 minutes. States that ibuprofen 800 mg does not provide any help.? He denies any history of DVT/PE. She is unaware of any family history of an autoimmune rheumatic disease. [facility] Medical History Insomnia Cervical disc disorder with radiculopathy of mid-cervical region Fibromyalgia History of intussusception Carpal tunnel syndrome, right Peripheral vascular disease Insomnia Obstructive sleep apnea Hypothyroid Hypertension Hypercholesterolemia Varicose veins of lower extremity Arthritis Surgical History History of sleeve gastrectomy H/O oophorectomy History of tubal ligation History of colectomy Family History Father Medical history unknown Mother Colon cancer Social History Household Members: None Housing: Apartment Alcohol intake: current Patient Tobacco Use Status: Former Tobacco user Tobacco use type: Cigarette Years Smoked: quit 17 years old e-Cigarette/Vaping Use: Never Used Second Hand Smoke Exposure: No Substance Use Type: Marijuana service: No Current occupational status: disabled Cognitive needs: No Hearing needs: No Vision needs: No Female Reproductive History Menstrual Total pregnancies: 4 Number of Living Children: 2 Ab spontaneous: 2 Review of Systems Const Reports fatigue, Reports headache(s) and Reports weakness Eyes Reports loss of vision ENT Reports dizziness, Reports headache(s) and Reports neck pain Card Reports chest pain Resp Reports wheezing Musc Reports back pain, Reports deformity, Reports arthralgias, Reports joint swelling and Reports neck pain Neuro Reports dizziness, Reports headache(s), Reports loss of vision, Reports memory loss and Reports weakness Psych Reports abnormal sleep pattern, Reports anxiety, Reports depression, Reports irritability and Reports memory loss Endo Reports fatigue Aller/Immun Reports wheezing Physical Exam Vital Signs: Last Vital Signs Temp 97.4 F 03/06/23 12:51 Pulse 79 03/06/23 12:51 BP 118/72 03/06/23 12:51 Pulse Ox 97 03/06/23 12:51 Oxygen Delivery Method Room Air 03/06/23 12:51 BMI result Body Mass Index 29.9 Const General: cooperative, healthy appearing and comfortable Nutritional Appearance: overweight Orientation/consciousness: patient oriented x3 Limitations: no limitations HEENT Head: Yes normocephalic and Yes atraumatic Resp Effort & Inspection: normal respiratory effort and able to speak in complete sentences Auscultation: clear to auscultation bilaterally Cardio Rate: regular rate Rhythm: regular rhythm GI Inspection: No distended Palpation (GI): Soft to palpation and nontender Skin General skin exam: no rashes or lesions noted Neuro General: patient oriented x3 Extrem Other: Left hand, no wrist swelling but pain with full flexion and extension Left 3rd MCP swelling with minimal tenderness, few tender PIPs, left 3rd finger extension of PIP and flexion of DIP Left 1st MCP tenderness No DIP tenderness Right wrist pain with full flexion Swelling of right 3rd MCP without significant tenderness Normal range of motion of both elbows without pain Limited range of motion of both shoulders Right knee pain with flexion as well as limited flexion Left knee crepitus Bilateral positive MTP squeeze test Swelling of dorsum of forefeet bilaterally and some tenderness Normal nailfold capillaroscopy Sarah test 10-13 cm Assessment & Plan Assessment & Plan (1) Polyarthralgia: Code(s): M25.50 - Pain in unspecified joint Plan: This is a 62-year-old female who is referred for evaluation of polyarthralgia. Will order comprehensive serology to screen for underlying autoimmune rheumatic disease. Check x-rays of involved joints. Start prednisone therapeutic trial Plan I spent 46 minutes reviewing patient's chart, evaluating patient, ordering diagnostic workup, counseling patient and documenting in the chart Orders: Orders Comprehensive Met. Panel Today M06.9 - Rheumatoid arthritis, unspecified Erythrocyte Sedimentation Rate Today M06.9 - Rheumatoid arthritis, unspecified XR knee LT 3V Today M06.9 - Rheumatoid arthritis, unspecified XR knee RT 3V Today M06.9 - Rheumatoid arthritis, unspecified XR foot RT min 3V Today M06.9 - Rheumatoid arthritis, unspecified XR chest 2V Today M06.9 - Rheumatoid arthritis, unspecified Complete Blood Count Auto Diff Today M06.9 - Rheumatoid arthritis, unspecified C Reactive Protein Today M06.9 - Rheumatoid arthritis, unspecified Hepatitis A,B,C Profile Today Z11.59 - Encounter for screening for other viral diseases T Spot TB Today Z11.7 - Encounter for testing for latent tuberculosis infection Immunofixation Pnl, Serum Today M06.9 - Rheumatoid arthritis, unspecified Protein Electrophoresis, Serum Today M06.9 - Rheumatoid arthritis, unspecified Rheumatoid Factor Today M06.9 - Rheumatoid arthritis, unspecified Cyclic Citrullinated Peptide Today M06.9 - Rheumatoid arthritis, unspecified XR hand wrist LT Today M06.9 - Rheumatoid arthritis, unspecified XR hand wrist RT Today M06.9 - Rheumatoid arthritis, unspecified XR knee standing BI Today M06.9 - Rheumatoid arthritis, unspecified XR ankle LT min 3V Today M06.9 - Rheumatoid arthritis, unspecified XR ankle RT min 3V Today M06.9 - Rheumatoid arthritis, unspecified XR foot LT min 3V Today M06.9 - Rheumatoid arthritis, unspecified JOSÉ MIGUEL Reflex Titer and Pattern Today M06.9 - Rheumatoid arthritis, unspecified Medications: New prednisone 15 mg (3 x 5 mg) PO DAILY 63 tabs 0RF Coding Level of Care Code New Pt Level 4 (15369) Diagnoses Polyarthralgia M25.50
[2023-03-06 12:51] VITALS: BP 118/72; PULSE 79; TEMP 36.3; O2SAT 97; BMI 29.9
== END 2023-03-06 13:34 | disposition home or self-care (01) ==
PROVIDERS: PCP Internal Medicine; Visit Provider Student in an Organized Health Care Education/Training Program
DX: M25.50 Pain in unspecified joint (principal)
CPT/HCPCS: 99204

== ENCOUNTER 2023-03-22 07:48 | Outpatient (AMB) | payer OTHER, SELFPAY ==
--- NOTE | 2023-03-22 07:59 | A.OFFVIS_ITS ---
Intake Vital Signs 03/22/23 08:08 Height 5 ft 3 in Weight 168 lb 3.403 oz BMI 29.8 BP 126/60 Blood Pressure Location Rt brachial Position Sitting Pulse 89 Pulse Source Pulse Oximeter Temp 97 F Temp Source Skin Pulse Oximetry (%) 98 Oxygen Delivery Method Room Air Intake Visit Reasons: RA Intake Note: Patient last seen 03/06/23, presents today for follow up and test results. Reports spread out bumps for a year that are now becoming painful. Publication Manager Required: No Accompanied by: Self / Same As Patient Allergies Penicillins [PENICILLINS] Adverse Reaction (Unknown, Verified 03/22/23 07:59) VOMITING Medication List - Last Reconciled 03/22/23 by Anish Ferraro MD biotin mg PO cholecalciferol (vitamin D3) 2,000 units PO DAILY 90 days levalbuterol tartrate 45 mcg/actuation (Xopenex HFA) 2 inhalations inhalation Q6H levothyroxine 112 mcg PO QAM lidocaine 5% 1 appl topical BID PRN mirtazapine 15 mg PO BEDTIME simvastatin 20 mg PO BEDTIME 90 days thiamine HCl (vitamin B1) 100 mg PO DAILY HPI HPI Comments History of Present Illness Details Patient returns for follow-up after completion of her blood work. States that prednisone was not helpful for her symptoms. She states that overly she has been getting bumps under her skin that are occasionally painful. She has a bump on her left forearm and behind her right knee. They never become red or warm Initial history: This is a 62-year-old female who presents for evaluation of multiple swollen and tender joints. She was referred by Pain Management. Patient states that 6 years ago she had a neck injury after moving heavy furniture at home. She was evaluated by a specialist and surgery was suggested and patient refused. She states that 2 months ago her right shoulder was pulled by her brother and since then she has had right shoulder pain. She states that she has had swelling of both hands for the last 3 years. Morning stiffness of her hands lasts 5 minutes. States that ibuprofen 800 mg does not provide any help.? He denies any history of DVT/PE. She is unaware of any family history of an autoimmune rheumatic disease. [facility] Medical History Insomnia Cervical disc disorder with radiculopathy of mid-cervical region Fibromyalgia History of intussusception Carpal tunnel syndrome, right Peripheral vascular disease Insomnia Obstructive sleep apnea Hypothyroid Hypertension Hypercholesterolemia Varicose veins of lower extremity Arthritis Surgical History History of sleeve gastrectomy H/O oophorectomy History of tubal ligation History of colectomy Family History Father Medical history unknown Mother Colon cancer Social History Household Members: None Housing: Apartment Alcohol intake: current Patient Tobacco Use Status: Former Tobacco user Tobacco use type: Cigarette Years Smoked: quit 17 years old e-Cigarette/Vaping Use: Never Used Second Hand Smoke Exposure: No Substance Use Type: Marijuana service: No Current occupational status: disabled Cognitive needs: No Hearing needs: No Vision needs: No Review of Systems ENT Reports neck pain Musc Reports back pain, Reports deformity, Reports arthralgias, Reports joint swelling and Reports neck pain Skin/Breast Details: Bumps under the skin Physical Exam Vital Signs: Last Vital Signs Temp 97 F 03/22/23 08:08 Pulse 89 03/22/23 08:08 BP 126/60 03/22/23 08:08 Pulse Ox 98 03/22/23 08:08 Oxygen Delivery Method Room Air 03/22/23 08:08 BMI result Body Mass Index 29.8 Const General: cooperative, healthy appearing and comfortable Nutritional Appearance: overweight Orientation/consciousness: patient oriented x3 Limitations: no limitations HEENT Head: Yes normocephalic and Yes atraumatic Resp Effort & Inspection: normal respiratory effort and able to speak in complete sentences GI Inspection: No distended Palpation (GI): Soft to palpation and nontender Skin General skin exam: no rashes or lesions noted Neuro General: patient oriented x3 Extrem Other: Minimal left wrist tenderness without swelling Left 3rd MCP swelling without tenderness, few tender PIPs, left 3rd finger extension of PIP and flexion of DIP Left 1st MCP tenderness Right wrist pain with full flexion Swelling of right 3rd MCP without significant tenderness Normal range of motion of both elbows without pain Limited range of motion of both shoulders Right knee pain with flexion as well as limited flexion Bilateral knee crepitus Assessment & Plan Assessment & Plan (1) Polyarthralgia: Code(s): M25.50 - Pain in unspecified joint Plan: This is a 62-year-old female who is referred for evaluation of polyarthralgia. Comprehensive serology is negative with normal inflammatory markers. X-rays are remarkable for generalized osteoarthritis. Symptoms not improving with prednisone taper. Clinical picture rather consistent with generalized osteoarthritis. I do not see any signs of an autoimmune rheumatic disease. Discussed management of degenerative arthritis with patient. Including physical therapy, maintaining a healthy weight, using Tylenol, can use NSAIDs sparingly as needed, can try Voltaren gel for knees, hands, wrists. Follow-up as needed (2) JOSÉ MIGUEL positive: Code(s): R76.8 - Other specified abnormal immunological findings in serum Plan: Positive JOSÉ MIGUEL 1-40, is generally considered negative from Rheumatology standpoint and is of unclear significance (3) Bumps on skin: Code(s): L98.9 - Disorder of the skin and subcutaneous tissue, unspecified Plan: f/u with PCP Plan I spent 26 minutes reviewing patient's chart, evaluating patient, counseling patient and documenting in the chart Coding Level of Care Code Est Pt Level 4 (91990) Diagnoses Polyarthralgia M25.50 JOSÉ MIGUEL positive R76.8 Bumps on skin L98.9
[2023-03-22 08:08] VITALS: BP 126/60; PULSE 89; TEMP 36.1; O2SAT 98; BMI 29.8
== END 2023-03-22 09:01 | disposition home or self-care (01) ==
PROVIDERS: PCP Internal Medicine; Visit Provider Student in an Organized Health Care Education/Training Program
DX: M25.50 Pain in unspecified joint (principal); R76.8 Other specified abnormal immunological findings in serum; L98.9 Disorder of the skin and subcutaneous tissue, unspecified
CPT/HCPCS: 99214

== ENCOUNTER → 2023-03-22 07:48 | Outpatient (BNVA) | payer OTHER, SELFPAY | PROVIDERS: PCP Internal Medicine; Visit Provider Student in an Organized Health Care Education/Training Program | DX: M25.50 Pain in unspecified joint (principal); R76.8 Other specified abnormal immunological findings in serum; L98.9 Disorder of the skin and subcutaneous tissue, unspecified | CPT/HCPCS: 99212 ==

== ENCOUNTER 2023-03-23 12:20 | Outpatient (AMB) | payer OTHER, SELFPAY ==
[2023-03-23 12:29] VITALS: BP 132/74; PULSE 72; RESP 17; BMI 29.9
--- NOTE | 2023-03-23 12:29 | MHC.PC.OV ---
Vital Signs 03/23/23 12:29 Height 5 ft 3 in Weight 169 lb BMI 29.9 BP 132/74 Blood Pressure Location Lt brachial Position Sitting Respiration 17 Pulse 72 Pulse Source Palpation Intake Visit Reasons: PE, hypercholesterol Intake Note: Patient is here today for a physical. Early Childhood Education Specialist Required: No Accompanied by: Self / Same As Patient Allergies Penicillins [PENICILLINS] Adverse Reaction (Unknown, Verified 03/23/23 12:36) VOMITING Medication List - Last Reconciled 03/23/23 by Tory Lyle MD biotin mg PO cholecalciferol (vitamin D3) 2,000 units PO DAILY 90 days levalbuterol tartrate 45 mcg/actuation (Xopenex HFA) 2 inhalations inhalation Q6H levothyroxine 112 mcg PO QAM lidocaine 5% 1 appl topical BID PRN simvastatin 20 mg PO BEDTIME 90 days thiamine HCl (vitamin B1) 100 mg PO DAILY Tobacco use date assessed: 12/19/22 Dental Screening Dental Screen Date: 03/23/23 Did you have a dental visit in the last 12 months?: No Did you have a dental problem in the last 6 months where you did not have access to dental care?: No Was dental information given to patient?: Patient declined HPI PE, hypercholesterol HPI Details 62-year-old overweight female with a history of sleeve gastrectomy, history of hypercholesterolemia obstructive sleep apnea last seen in December 2022. Patient is also hypothyroid and generalized anxiety disorder. Patient is here for physical exam patient's colonoscopy is due last 1 was November 2016, mammogram is due,. Review of the notes recently was seen by Rheumatology generalized osteoarthritis. Patient also has cervical radiculopathy seen pain management was referred to rheumatology. [facility] Medical History (Updated 03/23/23 @ 13:00 by Tory Lyle MD) Bumps on skin Insomnia Cervical disc disorder with radiculopathy of mid-cervical region Fibromyalgia History of intussusception Carpal tunnel syndrome, right Peripheral vascular disease Insomnia Obstructive sleep apnea Hypothyroid Hypertension Hypercholesterolemia Varicose veins of lower extremity Arthritis Surgical History History of sleeve gastrectomy H/O oophorectomy History of tubal ligation History of colectomy Family History Father Medical history unknown Mother Colon cancer Social History (Updated 03/23/23 @ 12:50 by Tory Lyle MD) Household Members: None Housing: Apartment Alcohol intake: current Comment: baileys 2x a week 2 shots Patient Tobacco Use Status: Former Tobacco user Tobacco use type: Cigarette Years Smoked: quit 17 years old e-Cigarette/Vaping Use: Never Used Second Hand Smoke Exposure: No Substance Use Type: Marijuana service: No Current occupational status: disabled Cognitive needs: No Hearing needs: No Vision needs: No Questionnaire Thrive Questionnaire Date Thrive assessed: 12/19/22 MARC-7 AMB Questionnaire MARC-7 Date MARC - 7 assessed: 12/19/22 Source: Developed by Drs. Robert Cotton, Violeta Pineda, Radames Casas and colleagues, with an educational sarah from [employer]. Review of Systems Const Denies poor appetite and Denies weakness Eyes Denies no additional complaints ENT Reports Normal hearing present, Denies dizziness, Denies nasal congestion, Denies tinnitus and Denies sore throat Card Denies chest pain, Denies syncope, Denies rapid heart rate and Denies dyspnea Resp Denies cough and Denies dyspnea GI Denies change in stool character, Reports constipation, Denies diarrhea, Denies nausea and Denies vomiting Denies urinary frequency, Denies difficulty voiding and Denies dysuria Neuro Reports Normal hearing present, Denies confusion, Denies dizziness, Denies syncope and Denies weakness Psych Denies confusion Physical exam (Primary Care) Vital Signs: Last Vital Signs Pulse 72 03/23/23 12:29 Resp 17 03/23/23 12:29 BP 132/74 03/23/23 12:29 BMI result Body Mass Index 29.9 Tobacco/Smoking Status: Tobacco use Status Tobacco use date assessed 12/19/22 03/23/23 12:33 Patient Tobacco Use Status Former Tobacco user 03/23/23 12:33 Tobacco use type Cigarette 03/23/23 12:33 e-Cigarette/Vaping Use Never Used 03/23/23 12:33 Thrive Assessment: Date of Thrive Assessment Date Thrive assessed 12/19/22 03/23/23 12:33 Const General: No confusion Orientation/consciousness: No confusion HENMT Head: Yes normocephalic Ears: external ears normal and TM's normal bilaterally Face and sinus: Yes normal facial exam Mouth: moist mucous membranes Throat: Yes tonsils normal Eyes Conjunctivae: conjunctivae normal Pupils: Equal, round and reactive pupils present and Pupil accommodation reflex normal Direct Ophthalmoscopy: normal light reflex Neck Neck: No lymphadenopathy Thyroid: Thyroid normal Chest Chest palpation & inspection: normal inspection of the chest Resp Effort & Inspection: normal respiratory effort and no audible wheezes Auscultation: clear to auscultation bilaterally, no crackles, no wheezes and lung sounds not diminished Cardio Rate: regular rate Rhythm: regular rhythm Peripheral pulses: radial pulses present and dorsalis pedis present GI Palpation (GI): no masses Auscultation: normal bowel sounds and normoactive bowel sounds Rectal Exam - Female: deferred Skin General skin exam: no rashes or lesions noted Rashes: no rashes Neuro General: No confusion Cranial nerves: Yes Equal, round and reactive pupils present and Yes Normal hearing present Cognition (Neuro): normal cognition Gait exam (Neuro): Normal gait present Motor exam (neuro): 5/5 motor strength present throughout Deep tendon reflexes (DTR's): Right brachioradialis reflex intensity grade: 2+, Left brachioradialis reflex intensity grade: 2+, Right patellar reflex intensity grade: 2+ and Left patellar reflex intensity grade: 2+ Extrem General: No edema Office Procedures Flu Questionnaire Does the patient have a severe egg allergy?: No Does the patient have severe life threatening allergies?: No Does the patient have a fever or illness today?: No Has the patient ever had Guillain-[place] Syndrome?: No Has the patient ever had any past reaction to a flu shot?: No Immunizations flu vacc [id number] 6mos up(PF) 60 mcg(15 mcgx4)/0.5 mL IM syringe Performing Provider: Tory Lyle MD Performing Location: [facility] Administered by: JASPER Courtney on 03/23/23 12:39 Dose Route Admin Location Dispensed Lot Number Expiration Date NDC Sewing Room Supervisor 0.5 mL IM Right Deltoid 0.5 mL [id number] 10/07/23 [id number] [employer] VIS Given Date VIS Provided VIS Publication Date 03/23/23 Single Vaccine 20 Eligibility Eligibility Date Funding Source Not [facility] Eligible 03/23/23 Private Assessment and Plan Assessment & Plan (1) Annual physical exam: Code(s): Z00.00 - Encounter for general adult medical examination without abnormal findings (2) History of sleeve gastrectomy: Comment: 04/2017 Code(s): Z90.3 - Acquired absence of stomach [part of] (3) Overweight (BMI 25.0-29.9): Code(s): E66.3 - Overweight Plan: Diet and exercise (4) Obstructive sleep apnea: Comment: on the CPAP q night > 4 hours and benefits patient Code(s): G47.33 - Obstructive sleep apnea (adult) (pediatric) Plan: Continue with CPAP more than 4 hours a night and benefits from this (5) Hypothyroid: Code(s): E03.9 - Hypothyroidism, unspecified Qualifiers: Hypothyroidism type: acquired Qualified Code(s): E03.9 - Hypothyroidism, unspecified Plan: Continue with thyroid medication (6) Hypercholesterolemia: Code(s): E78.00 - Pure hypercholesterolemia, unspecified Plan: Avoid fried foods, chicken skin, eggs, butter margarine, pastries and meat. Be it pork or beef they have a lot of cholesterol LDL goal of less than 130 and triglyceride of less than 150. Patient on simvastatin 20 mg once a day. Will need blood work (7) Generalized anxiety disorder: Comment: Psychiatry Dr. William Boles, Code(s): F41.1 - Generalized anxiety disorder Plan: Continue with counseling and therapy (8) Breast cancer screening by mammogram: Code(s): Z12.31 - Encounter for screening mammogram for malignant neoplasm of breast (9) Colon cancer screening: Code(s): Z12.11 - Encounter for screening for malignant neoplasm of colon Plan: Reminded about colon cancer screening (10) Lipoma: Comment: L arm Code(s): D17.9 - Benign lipomatous neoplasm, unspecified Plan: reasurance Orders: Orders Influenza [id number] Immunization Today Z23 - Encounter for immunization Complete Blood Count Auto Diff Today E78.00 - Pure hypercholesterolemia, unspecified Comprehensive Met. Panel Today E78.00 - Pure hypercholesterolemia, unspecified Thyroid Stimulating Hormone Today E78.00 - Pure hypercholesterolemia, unspecified Lipid Panel Today E78.00 - Pure hypercholesterolemia, unspecified CA echo transthoracic complete Today I10 - Essential (primary) hypertension Free T4 (Free Thyroxine) Today E78.00 - Pure hypercholesterolemia, unspecified Vitamin B12 and Folate Today E78.00 - Pure hypercholesterolemia, unspecified Vitamin D 25-OH Total Today E78.00 - Pure hypercholesterolemia, unspecified Referrals Gastroenterology Referral Z12.11 - Encounter for screening for malignant neoplasm of colon Coding Level of Care Code Est Pt Prev Care 40-64y(84362) Diagnoses Annual physical exam Z00.00 History of sleeve gastrectomy Z90.3 Overweight (BMI 25.0-29.9) E66.3 Obstructive sleep apnea G47.33 Acquired hypothyroidism E03.9 Hypothyroidism type: acquired Hypercholesterolemia E78.00 Generalized anxiety disorder F41.1 Breast cancer screening by mammogram Z12.31 Colon cancer screening Z12.11 Lipoma D17.9
== END 2023-03-23 14:19 | disposition home or self-care (01) ==
PROVIDERS: Visit Provider Internal Medicine
DX: Z00.00 Encounter for general adult medical examination without abnormal findings (principal); Z90.3 Acquired absence of stomach [part of]; E66.3 Overweight; Z23 Encounter for immunization; G47.33 Obstructive sleep apnea (adult) (pediatric); E03.9 Hypothyroidism, unspecified; E78.00 Pure hypercholesterolemia, unspecified; F41.1 Generalized anxiety disorder; Z12.31 Encounter for screening mammogram for malignant neoplasm of breast; Z12.11 Encounter for screening for malignant neoplasm of colon; D17.9 Benign lipomatous neoplasm, unspecified
CPT/HCPCS: 90471; 90686; 99396

== ENCOUNTER 2023-03-27 08:23 | Outpatient (REF) | payer OTHER, SELFPAY ==
[2023-03-27 08:50] LABS: MANUAL DIFF FLAG NO
[2023-03-27 08:59] LABS: Basophils Percent Auto 0.6 % (0-2); Eosinophils Absolute Auto 0.1 X10*3/uL (0.0-0.4); Eosinophils Percent Auto 1.9 % (0-4); Hemoglobin 14.1 g/dl (12.0-16.0); Imm Gran Abs Auto 0.02 X10*3/uL (0.00-0.03); Imm Gran Pct Auto 0.4 % (0.0-0.4); Lymphocytes Absolute Auto 1.6 X10*3/uL (1.2-4.9); Mean Corpuscular HGB Conc 32.8 g/dl (31.0-35.0); Mean Corpuscular Hemoglobin 27.4 pg (27.0-33.0); Mean Corpuscular Volume 83.5 fL (80.0-98.0); Mean Platelet Volume 8.9 fL (9.4-12.3); Monocytes Absolute Auto 0.6 X10*3/uL (0.1-1.2); Neutrophils Absolute Auto 2.8 x10*3/uL (2.0-8.3); Neutrophils Percent Auto 55.1 % (45-73); Platelet Count 220 X10*3/uL (160-400); Red Blood Count 5.15 X10*6/uL (4.20-5.50); Red Cell Distribution Width 15.1 % (11.0-16.0); White Blood Count 5.2 X10*3/uL (4.8-10.8)
[2023-03-27 09:32] LABS: Alanine Aminotransferase 10 U/L (0-31); Albumin Level 3.8 g/dL (3.5-5.0); Alkaline Phosphatase 80 U/L (39-117); Anion Gap 9 (12-20); Aspartate Amino Transferase 13 U/L (5-31); Bilirubin Total 0.4 mg/dL (0.0-1.0); Blood Urea Nitrogen 15 mg/dL (9-16); Calcium 9.6 mg/dL (8.4-10.2); Carbon Dioxide 30 mmol/L (22-29); Chloride 107 mmol/L (96-108); Cholesterol 201 mg/dL (<200); Estimated Glomerular Filt Rate > 60; Glucose Random 93 mg/dL (60-115); HDL Cholesterol 71 mg/dL (>40); LDL Cholesterol Calculated 114 mg/dL (<100); Sodium 142 mmol/L (135-145); Total Protein 6.7 g/dL (6.5-8.0); Triglycerides 82 mg/dL (<150)
[2023-03-27 09:46] LABS: Free T4 (Free Thyroxine) 1.15 ng/dL (0.71-1.85); Thyroid Stimulating Hormone 0.46 uIU/mL (0.32-4.0); Vitamin D 25-OH Total 49.7 ng/mL (>30)
[2023-03-27 10:01] LABS: Folate 9.7 ng/mL (> or = 4.0); Vitamin B12 373 pg/mL (200-900)
== END 2023-03-27 08:24 | disposition home or self-care (01) ==
LOC: HO.LAB 08:23
PROVIDERS: PCP Internal Medicine; Visit Provider Internal Medicine
DX: E78.00 Pure hypercholesterolemia, unspecified (principal)
CPT/HCPCS: 36415; 80053; 80061; 82306; 82607; 82746; 84439; 84443; 85025

== ENCOUNTER → 2023-04-12 13:30 | Outpatient (REF) | payer OTHER, SELFPAY | LOC: HO.CARD 13:30 | PROVIDERS: PCP Internal Medicine; Visit Provider Internal Medicine | DX: I10 Essential (primary) hypertension (principal) | CPT/HCPCS: 93306; 93356 ==

== ENCOUNTER → 2023-04-12 13:42 | Outpatient (BNV) | payer OTHER, SELFPAY | PROVIDERS: PCP Internal Medicine; Visit Provider Internal Medicine Cardiovascular Disease | DX: I10 Essential (primary) hypertension (principal) | CPT/HCPCS: 93306 ==

== ENCOUNTER 2023-04-27 12:53 | Outpatient (AMB) | payer OTHER, SELFPAY ==
--- NOTE | 2023-04-27 13:06 | MHC.PC.OV ---
Vital Signs 04/27/23 13:07 Height 5 ft 3 in Weight 170 lb BMI 30.1 BP 144/100 H Blood Pressure Location Lt brachial Position Sitting Pulse 79 Pulse Source Pulse Oximeter Pulse Oximetry (%) 98 Oxygen Delivery Method Room Air Intake Visit Reasons: Discuss SSI Form Intake Note: Pt is here for SSI forms to be fill out by PCP and to F/U on Anxiety and depression. Insurance Verification Clerk Required: No Accompanied by: Self / Same As Patient Allergies Penicillins [PENICILLINS] Adverse Reaction (Unknown, Verified 03/23/23 12:36) VOMITING Tobacco use date assessed: 12/19/22 HPI Discuss SSI Form HPI Details 62-year-old overweight female with a history of sleeve gastrectomy obstructive sleep apnea, hypothyroidism hypercholesterolemia generalized anxiety disorder coming in for follow-up. Last seen in March 2023. Patient had an echocardiogram April which revealed negative results. [facility] Medical History (Updated 03/23/23 @ 13:00 by Tory Lyle MD) Bumps on skin Insomnia Cervical disc disorder with radiculopathy of mid-cervical region Fibromyalgia History of intussusception Carpal tunnel syndrome, right Peripheral vascular disease Insomnia Obstructive sleep apnea Hypothyroid Hypertension Hypercholesterolemia Varicose veins of lower extremity Arthritis Surgical History History of sleeve gastrectomy H/O oophorectomy History of tubal ligation History of colectomy Family History Father Medical history unknown Mother Colon cancer Social History (Updated 03/23/23 @ 12:50 by Tory Lyle MD) Household Members: None Housing: Apartment Alcohol intake: current Comment: baileys 2x a week 2 shots Patient Tobacco Use Status: Former Tobacco user Tobacco use type: Cigarette Years Smoked: quit 17 years old e-Cigarette/Vaping Use: Never Used Second Hand Smoke Exposure: No Substance Use Type: Marijuana service: No Current occupational status: disabled Cognitive needs: No Hearing needs: No Vision needs: No Questionnaire PHQ-9 Over the last 2 weeks, how often have you been bothered by any of the following problems? 1. Little interest or pleasure in doing things: nearly every day 2. Feeling down, depressed, or hopeless: nearly every day 3. Trouble falling or staying asleep, or sleeping too much: nearly every day 4. Feeling tired or having little energy: nearly every day 5. Poor appetite or overeating: nearly every day 6. Feeling bad about yourself - or that you are a failure or have let yourself or your family down: nearly every day 7. Trouble concentrating on things, such as reading the newspaper or watching television: more than half the days 8. Moving or speaking so slowly that other people could have noticed. Or the opposite - being so fidgety or restless that you have been moving around a lot more than usual: several days 9. Thoughts that you would be better off or of hurting yourself in some way: several days Total score: 22 19670 - PHQ-9 Billing: Yes Source: Developed by Drs. Robert Cotton, Violeta Pineda, Radames Casas and colleagues, with an educational sarah from [employer]. Thrive Questionnaire Date Thrive assessed: 04/27/23 I am a: Patient What is your living situation today?: I have a steady place to live Within the past 12 months, did the food you bought not last and you didn't have the money to get more?: Never true Within the past 12 months, did you worry whether your food would run out before you got money to buy more?: Never true Do you have trouble paying for medicines?: No Do you have trouble getting transportation to medical appointments?: No Do you have trouble paying your heating and electricity bill?: No Do you have trouble taking care of your child, family member or friend?: No Do you have trouble with day-to-day activities such as bathing, preparing meals, shopping, managing finances, etc.?: No Are you currently unemployed and looking for a job?: No Are you interested in more education?: No Please select the resources that you would like help with: None Currently or been in a relationship where the following occur: no concerns reported THRIVE Score: 0 AUDIT C Alcohol Use Questionnaire (AUDIT-C) 1. How often do you have a drink containing alcohol?: Monthly or less 2. How many drinks containing alcohol do you have on a typical day when you are drinking?: 1 or 2 3. How often do you have six or more drinks on one occasion?: Never Total Score: 1 MARC-7 AMB Questionnaire MARC-7 Date MARC - 7 assessed: 04/27/23 Feeling nervous, anxious, or on edge: 3 = Nearly every day Not being able to stop or control worryin = Nearly every day Worrying too much about different things: 3 = Nearly every day Trouble relaxin = Nearly every day Being so restless that it is hard to sit still: 3 = Nearly every day Becoming easily annoyed or irritable: 3 = Nearly every day Feeling afraid as if something awful might happen: 3 = Nearly every day Total MARC-7 score (0-4 normal; 5-9 mild; 10-14 moderate; 15-21 severe): 21 Source: Developed by Drs. Robert Cotton, Violeta Pineda, Radames Casas and colleagues, with an educational sarah from [employer]. MARC-7 Assessment Billing MARC-7 Assessment Tool: MARC-7 Assessment [id number] Physical exam (Primary Care) Vital Signs: Last Vital Signs Pulse 79 04/27/23 13:07 BP 144/100 H 04/27/23 13:07 Pulse Ox 98 04/27/23 13:07 Oxygen Delivery Method Room Air 04/27/23 13:07 BMI result Body Mass Index 30.1 Tobacco/Smoking Status: Tobacco use Status Tobacco use date assessed 12/19/22 04/27/23 13:06 Patient Tobacco Use Status Former Tobacco user 04/27/23 13:06 Tobacco use type Cigarette 04/27/23 13:06 e-Cigarette/Vaping Use Never Used 04/27/23 13:06 PHQ-9: PHQ-9 Score PHQ-9: Total score 22 04/27/23 19:08 Thrive Assessment: Date of Thrive Assessment Date Thrive assessed 04/27/23 04/27/23 13:22 Currently or been in a relationship where the following occur: no concerns reported Const General: alert; No acute distress Eyes Conjunctivae: conjunctivae normal Resp Auscultation: clear to auscultation bilaterally Cardio Rate: regular rate Rhythm: regular rhythm GI Inspection: Yes normal to inspection Extrem General: Yes normal to inspection and No edema Assessment and Plan Assessment & Plan (1) Overweight (BMI 25.0-29.9): Code(s): E66.3 - Overweight Plan: Continue with diet and exercise (2) Obstructive sleep apnea: Comment: on the CPAP q night > 4 hours and benefits patient Code(s): G47.33 - Obstructive sleep apnea (adult) (pediatric) Plan: Continue to use the CPAP more than 4 hours a night and benefits from this (3) Hypertension: Code(s): I10 - Essential (primary) hypertension Qualifiers: Hypertension type: essential hypertension Qualified Code(s): I10 - Essential (primary) hypertension Plan: advised to continue to moniutor Coding Level of Care Code Est Pt Level 4 (30112) Diagnoses Overweight (BMI 25.0-29.9) E66.3 Obstructive sleep apnea G47.33 Essential hypertension I10 Hypertension type: essential hypertension Additional Codes MARC-7 Assessment Billing - MARC-7 Assessment Tool: MARC-7 Assessment 23087 ([id number])
[2023-04-27 13:07] VITALS: BP 144/100; PULSE 79; O2SAT 98; BMI 30.1
== END 2023-04-27 13:32 | disposition home or self-care (01) ==
PROVIDERS: PCP Internal Medicine; Visit Provider Internal Medicine
DX: G47.33 Obstructive sleep apnea (adult) (pediatric) (principal); E66.3 Overweight; I10 Essential (primary) hypertension; Z68.30 Body mass index [BMI] 30.0-30.9, adult
CPT/HCPCS: 99214

== ENCOUNTER 2023-05-29 13:38 | Outpatient (AMB) | payer OTHER, SELFPAY ==
[2023-05-29 13:49] VITALS: BP 142/75; PULSE 75; BMI 29.6
--- NOTE | 2023-05-29 13:49 | A.OFFVIS_ITS ---
Intake Vital Signs 05/29/23 13:49 Height 5 ft 3 in Weight 167 lb BMI 29.6 BP 142/75 H Blood Pressure Location Lt brachial Position Sitting Pulse 75 Pulse Source Monitor Intake Visit Reasons: Colonoscopy Screening Intake Note: Patient states she is not currently having any GI issues. Clerical Adjuster Required: No Accompanied by: Self / Same As Patient Allergies Penicillins [PENICILLINS] Adverse Reaction (Unknown, Verified 05/29/23 13:53) VOMITING HPI Colonoscopy Screening HPI Details 62 year old? female past medical history of osteopenia, lumbar radiculopathy, polyarthralgia, history of sleeve gastrectomy in 2019, hypothyroidism, ELISE, hypertension, hypercholesteremia is here today for pre colonoscopy screening.? Patient was sent to us by her PCP.? Patient had colonoscopy in 2017 that was normal, however due to family history of colorectal cancer patient was supposed to be screened every 5 years. Patient denies any gastrointestinal symptoms in the past or at present.? ? Denies history of difficulty with sedation or anesthesia in the past.? History of sleep apnea, using CPAP every night. Denies any history of cardiac, renal, pulmonary, or hepatic disease.?? No history of infectious? diseases like hepatitis A, B, C, HIV or tuberculosis.? Patient is not on any anticoagulation therapy. [facility] Medical History (Updated 03/23/23 @ 13:00 by Tory Lyle MD) Bumps on skin Insomnia Cervical disc disorder with radiculopathy of mid-cervical region Fibromyalgia History of intussusception Carpal tunnel syndrome, right Peripheral vascular disease Insomnia Obstructive sleep apnea Hypothyroid Hypertension Hypercholesterolemia Varicose veins of lower extremity Arthritis Surgical History History of sleeve gastrectomy H/O oophorectomy History of tubal ligation History of colectomy Family History Father Medical history unknown Mother Colon cancer Social History (Updated 03/23/23 @ 12:50 by Tory Lyle MD) Household Members: None Housing: Apartment Alcohol intake: current Comment: baileys 2x a week 2 shots Patient Tobacco Use Status: Former Tobacco user Tobacco use type: Cigarette Years Smoked: quit 17 years old e-Cigarette/Vaping Use: Never Used Second Hand Smoke Exposure: No Substance Use Type: Marijuana service: No Current occupational status: disabled Cognitive needs: No Hearing needs: No Vision needs: No Review of Systems Const Denies weight gain and Denies weight loss ENT Reports no additional complaints, Denies dysphagia and Denies odynophagia Card Reports no additional complaints Resp Reports no additional complaints GI Denies abdominal pain, Denies belching, Denies melena, Denies bloating, Denies change in bowel habits, Denies dysphagia, Denies excessive flatus, Denies dyspepsia, Denies heartburn, Denies diarrhea, Denies loose stools, Denies nausea, Denies odynophagia and Denies vomiting Musc Reports no additional complaints Neuro Reports no additional complaints Psych Reports no additional complaints Endo Reports no additional complaints Physical Exam Vital Signs: Last Vital Signs Pulse 75 05/29/23 13:49 BP 142/75 H 05/29/23 13:49 BMI result Body Mass Index 29.6 Const General: healthy appearing, no acute distress and well developed Nutritional Appearance: well nourished Orientation/consciousness: patient oriented x3 Resp Effort & Inspection: normal respiratory effort, able to speak in complete sentences, no tracheal deviation and symmetric chest movement Auscultation: clear to auscultation bilaterally Cardio Rate: regular rate GI Inspection: Yes normal to inspection and No distended Palpation (GI): Soft to palpation, not firm, nontender and No hepatosplenomegaly present Auscultation: normal bowel sounds General: Yes no CVA tenderness Back/Spine/Pelvis Back: no CVA tenderness Skin General skin exam: elasticity normal, turgor normal and dry skin Neuro General: patient oriented x3 Psych Appearance: grossly normal Mental Status: mental status grossly normal Assessment & Plan Assessment & Plan (1) Colon cancer screening: Code(s): Z12.11 - Encounter for screening for malignant neoplasm of colon Plan Patient denies any GI, cardiac or respiratory symptoms.? History of asthma, using inhalers. Denies any issues with anesthesia in the past.? History of sleep apnea on CPAP every night.? No history infectious diseases in the past or present.? Not on any anticoagulation therapy.? Patient has a family history of CRC, her mom was diagnosed with CRC.? Patient denies melena, hematochezia, unintentional weight loss or ribbon like stools.? Discussed at length the pre- procedure,? prep, diet & medications as well as what to expect prior, during and after the procedure.?? Stressed the importance of good bowel prep. ?Recommended the use of Vaseline or Calmoseptine OTC & baby wipes with bowel movements to promote comfort.? ?Patient verbalizes understanding and agrees to plan of care.? She was given the opportunity to ask questions and all questions answered.? We will see her after the procedure.? Medications: New bisacodyl (Dulcolax (bisacodyl)) take 4 tabs at noon the day before your colonoscopy 20 mg (4 x 5 mg) PO ONCE 1 day 4 tabs 0RF Z12.11 - Encounter for screening for malignant neoplasm of colon polyethylene glycol 3350 (Miralax) As directed by [facility]ology [facility] at [facility] 238 grams PO ONCE 238 grams 0RF Z12.11 - Encounter for screening for malignant neoplasm of colon Coding Level of Care Code New Pt Level 3 (91988) Diagnoses Colon cancer screening Z12.11 Time Spent (min) 40 Comment 30 minutes spent with patient and additional 10 minutes spent reviewing her records
== END 2023-05-29 15:11 | disposition home or self-care (01) ==
PROVIDERS: PCP Internal Medicine; Visit Provider Nurse Practitioner Family
DX: Z12.11 Encounter for screening for malignant neoplasm of colon (principal); Z01.818 Encounter for other preprocedural examination
CPT/HCPCS: 99203

== ENCOUNTER → 2023-05-29 13:38 | Outpatient (BNVA) | payer OTHER, SELFPAY | PROVIDERS: PCP Internal Medicine; Visit Provider Nurse Practitioner Family | DX: Z12.11 Encounter for screening for malignant neoplasm of colon (principal) | CPT/HCPCS: 99202 ==

== ENCOUNTER 2023-07-02 14:00 | Outpatient (RCR) | payer OTHER, SELFPAY ==
[2023-05-24 11:44] VITALS: BP 135/89; PULSE 83
--- NOTE | 2023-05-24 15:57 | MHC.PT.EP ---
[facility] [place] Office [place] [facility] [place] Office [address] Erika Hedrick [address] [phone] F: [phone] F: [phone] F: [phone] F: [phone] Physical Therapy Plan of Care Date of Evaluation: 05/24/23 Date of Surgery: Diagnosis: cervical disc disorder radiculopathy Assessment: Patient is a pleasant 62 y.o. female who is referred to PT by Dr. Tory Lyle MD with Dx of cervical disc disorder, radiculopathy. Her cervical spine x-ray shows; Minimal retrolisthesis of C4 on C5 unchanged. Vertebral body heights are maintained. Moderate degenerative disc disease at C4-C5 through C6-C7, manifested by loss of disc space height and facet arthropathy, progressed from prior. Patient impairments include pain, poor postures, limited ROM, weakness. Patient current functional limitations are lift/carry grandkids, playing with grandkids, painting, reading/writing. Patient will benefit from skilled PT to address aforementioned impairments and functional limitations to meet established goals. Frequency and Duration: The patient will be seen 2x/week for 4 weeks Short Term Goals: 2 weeks Patient demonstrates consistency and independence with HEP to self manage symptoms. Rewards Consultant Goals: 4 weeks Patient presents with increased cervical rotation 60 degrees bilaterally to look over shoulder when driving. Patient presents wtih increased bilateral shoulder flexion 5/5 to be able to lift/carry grandkids. Treatment Plan: Modalities to reduce pain, spasms and effusion. Manual therapy to restore motion and function. Therapeutic exercise to improve strength and flexibility. Neuromuscular re-education for posture and balance. Therapeutic activities to return to functional activities of daily living. Electronically signed by: Izabela Galaviz, PT, DPT Please sign and return to therapist. Thank you for your referral.
--- NOTE | 2023-09-05 09:24 | MHC.PT.DC ---
[facility] [place] [facility] [place] [facility] [address] [facility] [address] Erika Hedrick [address] [phone] F: [phone] F: [phone] F: [phone] F: [phone] Physical Therapy Discharge Report Diagnosis: cervical disc disorder radiculopathy Date of Surgery: Date of Evaluation: 05/24/23 Date of Discharge: 09/05/23 Treatments to Date: 6 Cancellations to Date: 2 No Shows to Date: 2 Discharge Status: Improved Function Independent with HEP Patient Elected to Stop Discharge Summary: Radha was last treated in PT on 07/02/23. The assessment on that date reads, pt ? continue PT or not. States has had some relief of sx. Needs a written HEP Update prior to D/C. She has improvement with her sxs but did not show to her remaining PT visits after that date. Therefore she is discharged from PT at this time. Electronically signed by: Izabela Galaviz, PT, DPT Please sign and return to therapist. Thank you for your referral.
== END 2023-09-05 09:25 | disposition home or self-care (01) ==
LOC: HO.PT 14:00
PROVIDERS: PCP Internal Medicine; Visit Provider Internal Medicine
DX: M50.120 Mid-cervical disc disorder, unspecified level (principal)
CPT/HCPCS: 97110; 97140; 97161

== ENCOUNTER 2023-09-18 14:30 | Outpatient (AMB) | payer OTHER, SELFPAY ==
[2023-09-18 15:05] VITALS: BP 152/94; PULSE 87; O2SAT 100; BMI 28.2
--- NOTE | 2023-09-18 15:05 | MHC.PC.OV ---
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 Required: No Accompanied by: Self / Same As Patient Allergies Penicillins [PENICILLINS] Adverse Reaction (Unknown, Verified 09/18/23 15:15) VOMITING Tobacco use date assessed: 09/18/23 Dental Screening Dental Screen Date: 09/18/23 Did you have a dental visit in the last 12 months?: No Did you have a dental problem in the last 6 months where you did not have access to dental care?: No Was dental information given to patient?: Patient has dentist HPI cracking in left knee HPI Details 62-year-old overweight female with a history of hypertension obstructive sleep apnea coming in for an acute problem. Patient complains of left knee cracking sounds but pain is only mild denies any fall or trauma with the sound prompted for consultation. As for the blood pressure noted to be elevated here states blood pressure is being checked at home and they are good. [facility] Medical History (Updated 09/18/23 @ 16:11 by Tory Lyle MD) Bumps on skin Insomnia Cervical disc disorder with radiculopathy of mid-cervical region Fibromyalgia History of intussusception Carpal tunnel syndrome, right Peripheral vascular disease Insomnia Obstructive sleep apnea Hypothyroid Hypertension Hypercholesterolemia Varicose veins of lower extremity Arthritis Surgical History History of sleeve gastrectomy H/O oophorectomy History of tubal ligation History of colectomy Family History Father Medical history unknown Mother Colon cancer Social History (Updated 03/23/23 @ 12:50 by Tory Lyle MD) Household Members: None Housing: Apartment Alcohol intake: current Comment: baileys 2x a week 2 shots Patient Tobacco Use Status: Former Tobacco user Tobacco use type: Cigarette Years Smoked: quit 17 years old e-Cigarette/Vaping Use: Never Used Second Hand Smoke Exposure: No Substance Use Type: Marijuana service: No Current occupational status: disabled Cognitive needs: No Hearing needs: No Vision needs: No Questionnaire PHQ-9 Over the last 2 weeks, how often have you been bothered by any of the following problems? 1. Little interest or pleasure in doing things: nearly every day 2. Feeling down, depressed, or hopeless: nearly every day 3. Trouble falling or staying asleep, or sleeping too much: nearly every day 4. Feeling tired or having little energy: nearly every day 5. Poor appetite or overeating: nearly every day 6. Feeling bad about yourself - or that you are a failure or have let yourself or your family down: nearly every day 7. Trouble concentrating on things, such as reading the newspaper or watching television: more than half the days 8. Moving or speaking so slowly that other people could have noticed. Or the opposite - being so fidgety or restless that you have been moving around a lot more than usual: several days 9. Thoughts that you would be better off or of hurting yourself in some way: several days Total score: 22 Source: Developed by Drs. Robert Cotton, Violeta Pineda, Radames Casas and colleagues, with an educational sarah from [employer]. Thrive Questionnaire Date Thrive assessed: 09/18/23 I am a: Patient What is your living situation today?: I have a steady place to live Within the past 12 months, did the food you bought not last and you didn't have the money to get more?: Never true Within the past 12 months, did you worry whether your food would run out before you got money to buy more?: Never true Do you have trouble paying for medicines?: No Do you have trouble getting transportation to medical appointments?: No Do you have trouble paying your heating and electricity bill?: No Do you have trouble taking care of your child, family member or friend?: No Do you have trouble with day-to-day activities such as bathing, preparing meals, shopping, managing finances, etc.?: No Are you currently unemployed and looking for a job?: No Are you interested in more education?: No Please select the resources that you would like help with: None Currently or been in a relationship where the following occur: no concerns reported THRIVE Score: 0 AUDIT C Alcohol Use Questionnaire (AUDIT-C) 1. How often do you have a drink containing alcohol?: Monthly or less 2. How many drinks containing alcohol do you have on a typical day when you are drinking?: 1 or 2 3. How often do you have six or more drinks on one occasion?: Never Total Score: 1 MARC-7 AMB Questionnaire MARC-7 Date MARC - 7 assessed: 09/18/23 Feeling nervous, anxious, or on edge: 3 = Nearly every day Not being able to stop or control worryin = Nearly every day Worrying too much about different things: 3 = Nearly every day Trouble relaxin = Nearly every day Being so restless that it is hard to sit still: 3 = Nearly every day Becoming easily annoyed or irritable: 3 = Nearly every day Feeling afraid as if something awful might happen: 3 = Nearly every day Total MARC-7 score (0-4 normal; 5-9 mild; 10-14 moderate; 15-21 severe): 21 Source: Developed by Drs. Robert Cotton, Violeta Pineda, Radames Casas and colleagues, with an educational sarah from [employer]. Physical exam (Primary Care) Vital Signs: Last Vital Signs Pulse 87 09/18/23 15:05 BP 152/94 H 09/18/23 15:05 Pulse Ox 100 09/18/23 15:05 Oxygen Delivery Method Room Air 09/18/23 15:05 BMI result Body Mass Index 28.2 Tobacco/Smoking Status: Tobacco use Status Tobacco use date assessed 09/18/23 09/18/23 15:19 Patient Tobacco Use Status Former Tobacco user 09/18/23 15:19 Tobacco use type Cigarette 09/18/23 15:19 e-Cigarette/Vaping Use Never Used 09/18/23 15:19 PHQ-9: PHQ-9 Score PHQ-9: Total score 22 09/18/23 16:10 Thrive Assessment: Date of Thrive Assessment Date Thrive assessed 09/18/23 09/18/23 15:19 Currently or been in a relationship where the following occur: no concerns reported Assessment and Plan Assessment & Plan (1) Hypertension: Code(s): I10 - Essential (primary) hypertension Qualifiers: Hypertension type: essential hypertension Qualified Code(s): I10 - Essential (primary) hypertension Plan: States BP at home is good (2) Knee pain, left: Code(s): M25.562 - Pain in left knee Plan: voltaren gel sent in and x-ray requested Orders: Orders XR knee LT 2V Today M25.562 - Pain in left knee Medications: New diclofenac sodium 1% (Voltaren Arthritis Pain) apply to single knee, ankle, foot; for foot includes sole/toes/top of foot 4 grams topical QID 100 grams 3RF M25.562 - Pain in left knee Coding Level of Care Code Est Pt Level 3 (63076) Diagnoses Essential hypertension I10 Hypertension type: essential hypertension Knee pain, left M25.562
== END 2023-09-18 16:56 | disposition home or self-care (01) ==
PROVIDERS: PCP Internal Medicine; Visit Provider Internal Medicine
DX: I10 Essential (primary) hypertension (principal); M25.562 Pain in left knee
CPT/HCPCS: 99213

== ENCOUNTER 2023-10-01 12:24 | Outpatient (REF) | payer OTHER, SELFPAY ==
--- NOTE | ~2023-10-01 | XR_ITS ---
EXAMINATION: XR KNEE, LEFT CLINICAL INFORMATION: Radiographs dated 03/06/2023. COMPARISON: None available. TECHNIQUE: AP and lateral views of the left knee. FINDINGS: There is mild bony demineralization. There is moderate asymmetric narrowing of the medial joint space compartment. The lateral and patellofemoral joint space compartments are well-maintained. No fracture, dislocation or joint effusion is seen. There is no foreign body. XR/XR knee LT 2V IMPRESSION: 1. There is moderate degenerative change of the medial joint space compartment the left knee. 2. No left knee fracture, dislocation or joint effusion is seen.
== END 2023-10-01 12:25 | disposition home or self-care (01) ==
LOC: HO.XRAY 12:24
PROVIDERS: PCP Internal Medicine; Visit Provider Internal Medicine
DX: M25.562 Pain in left knee (principal)
CPT/HCPCS: 73560

== ENCOUNTER 2023-11-07 09:05 | Outpatient (AMB) | payer OTHER, SELFPAY ==
--- NOTE | 2023-11-07 09:27 | MHC.OFFVISWM ---
VS Expanded 11/07/23 09:38 BP 134/72 Blood Pressure Location Rt brachial Blood Pressure Position Sitting Pulse 75 Pulse Source Pulse Oximeter Temp 97.8 F Temperature Source Temporal Artery Scan Pulse Oximetry 98 Oxygen Delivery Method Room Air Height 5 ft 2 in Weight 155 lb 3.2 oz BMI 28.4 Body Fat % 36.6 Body Fat Mass 56.6 Fat Free Mass 98.4 Visceral Fat Rating 9.0 Body Water % 44.8 Body Water Mass 69.4 Muscle Mass/Score 93.2 Basal Metabolic Rate/Score 1,340 Intake Visit Reasons: OV PO LSG 12/20/2018 Allergies Penicillins [PENICILLINS] Adverse Reaction (Unknown, Verified 11/07/23 09:30) VOMITING Medication List - Last Reconciled 11/07/23 by FINN Martinez bisacodyl (Dulcolax (bisacodyl)) 20 mg (4 x 5 mg) PO ONCE 1 day blood pressure monitor (Blood Pressure Kit) As directed cholecalciferol (vitamin D3) 2,000 units PO DAILY 90 days diclofenac sodium 1% (Voltaren Arthritis Pain) 4 grams topical QID levalbuterol tartrate 45 mcg/actuation (Xopenex HFA) 2 inhalations inhalation Q6H levothyroxine 112 mcg PO QAM lidocaine 5% 1 appl topical BID PRN simvastatin 20 mg PO BEDTIME 90 days thiamine HCl (vitamin B1) 100 mg PO DAILY HPI Comments Details: This?is a?62?yo female who is s/p LSG 12/20/2018. Weight at last visit on 02/08/2022 was 174 pounds with a BMI of 30.8, weight today is 155.2 pounds, representing a 18.8 pound weight loss with a BMI today of 27.5.? No complaints of nausea, emesis, abdominal pain or reflux, or constipation. Pt having difficulty/conflict with neighbor who lives above her. Has had to go to housing court. Looking for a new apartment. Feeling stressed and attributes her weight loss to this. Present meal plan includes: goal of 70-75g/day Celebrate protein shake with 2 scoops or alternative protein shake with 25-30g protein per shake Zone Perfect bar Cottage cheese with pineapple One meal with 3oz protein, 3oz veg Pt reports I have not even been eating. No appetite, drinks coffee. Exercise- walking for an hour 4x/week, also exercises at home- small weights Pt has excess skin of abdomen and arms that is bothersome. Excess skin of arms is uncomfortable with movement. Gets excess skin pinched when trying to put on her bra. Excess skin of abdomen is very heavy, uncomfortable. Has to wear supportive waistband to hold skin in place. Has to wash and dry frequently to prevent rashes. [facility] Medical History (Updated 09/18/23 @ 16:11 by Tory Lyle MD) Bumps on skin Insomnia Cervical disc disorder with radiculopathy of mid-cervical region Fibromyalgia History of intussusception Carpal tunnel syndrome, right Peripheral vascular disease Insomnia Obstructive sleep apnea Hypothyroid Hypertension Hypercholesterolemia Varicose veins of lower extremity Arthritis Surgical History History of sleeve gastrectomy H/O oophorectomy History of tubal ligation History of colectomy Family History Father Medical history unknown Mother Colon cancer Social History (Updated 11/07/23 @ 09:33 by Fanny Avalos CMA) Household Members: None Housing: Apartment Alcohol intake: former Comment: baileys 2x a week 2 shots Patient Tobacco Use Status: Former Tobacco user Tobacco use type: Cigarette Years Smoked: quit 17 years old e-Cigarette/Vaping Use: Never Used Second Hand Smoke Exposure: No Substance Use Type: Marijuana service: No Current occupational status: disabled Cognitive needs: No Hearing needs: No Vision needs: No Physical Exam Vital Signs: Last Vital Signs Temp 97.8 F 11/07/23 09:38 Pulse 75 11/07/23 09:38 BP 134/72 11/07/23 09:38 Pulse Ox 98 11/07/23 09:38 Oxygen Delivery Method Room Air 11/07/23 09:38 BMI result Body Mass Index 28.4 Assessment & Plan Assessment & Plan (1) Obesity (BMI 30.0-34.9): Code(s): E66.9 - Obesity, unspecified Category: Medical (2) History of sleeve gastrectomy: Code(s): Z90.3 - Acquired absence of stomach [part of] Category: Surgical Plan Pt will incorporate 2 protein shakes a day- she has used Premier in the past. Plus one small meal of protein. Could also try one shake, one yogurt, one bar, and one small meal of protein. Labs ordered. She is interested in skin removal surgery and we discussed the importance of good nutrition prior to any future operations. RTC 3 months. I spent a total of 30 minutes reviewing/updating records, examining the patient and counseling the patient on weight management as detailed above. Orders: Orders Insulin Today Z90.3 - Acquired absence of stomach [part of] Hemoglobin A1c Today Z90.3 - Acquired absence of stomach [part of] IRON PROFILE Today Z90.3 - Acquired absence of stomach [part of] Zinc Today Z90.3 - Acquired absence of stomach [part of] C Reactive Protein Today Z90.3 - Acquired absence of stomach [part of] Vitamin B1 Today Z90.3 - Acquired absence of stomach [part of] Ferritin Today Z90.3 - Acquired absence of stomach [part of] Vitamin D 25-OH Total Today Z90.3 - Acquired absence of stomach [part of] Complete Blood Count Auto Diff Today Z90.3 - Acquired absence of stomach [part of] Lipid Panel Today Z90.3 - Acquired absence of stomach [part of] Comprehensive Met. Panel Today Z90.3 - Acquired absence of stomach [part of] Vitamin B12 and Folate Today Z90.3 - Acquired absence of stomach [part of] Vitamin A Today Z90.3 - Acquired absence of stomach [part of] TSH reflex Free T4 Today Z90.3 - Acquired absence of stomach [part of]
[2023-11-07 09:38] VITALS: BP 134/72; PULSE 75; TEMP 36.6; O2SAT 98; BMI 28.4
== END 2023-11-07 10:09 | disposition home or self-care (01) ==
PROVIDERS: PCP Internal Medicine; Visit Provider Physician Assistant Surgical
DX: E66.9 Obesity, unspecified (principal); Z68.28 Body mass index [BMI] 28.0-28.9, adult; Z90.3 Acquired absence of stomach [part of]; Z98.84 Bariatric surgery status
CPT/HCPCS: 99214; G2211

== ENCOUNTER → 2023-11-07 09:05 | Outpatient (BNVA) | payer OTHER, SELFPAY | PROVIDERS: PCP Internal Medicine; Visit Provider Physician Assistant Surgical | DX: E66.9 Obesity, unspecified (principal); Z68.27 Body mass index [BMI] 27.0-27.9, adult; Z90.3 Acquired absence of stomach [part of]; Z90.49 Acquired absence of other specified parts of digestive tract | CPT/HCPCS: 99212 ==

== ENCOUNTER 2023-12-27 06:09 | Emergency (ER) | payer OTHER, SELFPAY ==
--- NOTE | ~2023-12-27 | CT_ITS ---
EXAMINATION: CT ANGIOGRAM NECK WITH CONTRAST CT ANGIOGRAM BRAIN WITH CONTRAST CLINICAL INFORMATION: Left-sided neck pain with dizziness. Headaches. COMPARISON: Cervical spine MRI November 12, 2019. TECHNIQUE: Test bolus sequences followed by intravenous administration 70 mL of Omnipaque 350. Helical imaging was performed in the axial plane from the thoracic inlet to the skull vertex. Delayed postcontrast imaging of the head was also performed. The data was processed at the chief radiologic technologist workstation for generation of MIP sequences. Angled MIPs and volume rendered reformatted images were also generated at an offline 3D workstation under concurrent supervision. Stenoses are assessed in accordance with NASCET criteria unless otherwise indicated. This CT examination was performed using dose optimization techniques as appropriate, variously including the following: *Automated exposure control *Adjustment of mA and/or kV according to patient size (this includes techniques or standardized protocols for targeted exams where dose is matched to indication/reason for exam; i.e. extremities or head) *Use of iterative reconstruction technique FINDINGS: BRAIN: [There is no intracranial hemorrhage, hydrocephalus, extra-axial surface collection, midline shift, or other herniation pattern. [place] to white matter differentiation is diffusely maintained without evidence of an evolved acute territorial infarct. The basilar cisterns are preserved. No significant soft tissue abnormality. No acute osseous abnormality. The paranasal sinuses and the mastoid air cells are well aerated.] CERVICAL SOFT TISSUES AND LUNG APICES: Lungs and soft tissues are not well assessed due to the degree of motion. There is multilevel cervical spondylosis which is limitedly assessed due to the degree of motion. CTA: There is a 3 great vessel branch configuration off of the aortic arch. The great vessel origins are widely patent. The cervical vertebral arteries are codominant and remain patent throughout their course. The vertebrobasilar system remains patent. The common carotid arteries, carotid bifurcations, and cervical internal carotid arteries remain patent. Very limited assessment due to the degree of motion. The carotid siphons remain patent and there are no proximal arch vessel occlusions. Nondiagnostic assessment for aneurysms in the degree of motion. [ CT/CT angio head neck IMPRESSION: * No acute intracranial findings with assessment limited by motion artifact. * Partially nondiagnostic CTA of the head and neck. No definite vascular occlusions. Nondiagnostic assessment of arterial dissection or nondiagnostic assessment for aneurysms in the degree of motion artifact on this study. Electronically signed by: Rick Martino MD 12/27/2023 09:40 AM EDT
[2023-12-27 06:19] VITALS: PULSE 85; TEMP 36.6; O2SAT 99; BMI 28.2
[2023-12-27 06:23] VITALS: BP 170/108; PULSE 90; RESP 16; O2SAT 100
--- NOTE | 2023-12-27 07:02 | ED.GENADULT ---
HPI - General Adult General Chief complaint: General Medical Stated complaint: Severe Neck Pain No Injury Time Seen by Provider: 12/27/23 06:59 Source: patient Mode of arrival: ambulatory Limitations: no limitations History of Present Illness ED Provider: AUGUSTINE ART narrative: 63 yo female with PMH of hypothyroidism, HTN, HLD, arthritis, neck pain, sleeve gastrectomy here with c/o 3 days atraumatic L sided neck pain that she woke up with. Denies trauma, whiplash, chiropractor. She notes the pain radiates up to the head and shoulder across the neck causing a headache and dizziness. She denies numbness or weakness in the extremities. She has no rash or fevers. She has neck pain in the past but never to this degree and not with dizziness or headache. She is not on blood thinners. MD complaint: neck pain Onset (ago): day(s) (3) Location: neck Radiation: neck and other (head) Severity: severe Quality: stabbing Pain Consistency: constant Relieving factors: none Exacerbating factors: movement Associated symptoms: headaches and other (dizziness) Treatments prior to arrival: none Related Data Previous Rx's ?Medication ?Instructions ?Recorded lidocaine 5 % topical ointment 1 appl topical BID PRN pain #50 01/18/23 grams simvastatin 20 mg tablet 20 mg PO BEDTIME 90 days #90 tabs 02/26/23 thiamine HCl (vitamin B1) 100 mg 100 mg PO DAILY #90 tabs 02/27/23 tablet blood pressure monitor (Blood #1 ea 05/02/23 Pressure Kit) bisacodyl 5 mg tablet,delayed 20 mg (4 x 5 mg) PO ONCE 1 day #4 05/29/23 release (Dulcolax (bisacodyl)) tabs levalbuterol tartrate 45 2 inh inhalation Q6H #15 grams 06/27/23 mcg/actuation aerosol inhaler (Xopenex HFA) diclofenac sodium 1 % topical gel 4 g topical QID #100 grams 09/18/23 (Voltaren Arthritis Pain) cholecalciferol (vitamin D3) 50 2,000 unit PO DAILY 90 days #90 11/27/23 mcg (2,000 unit) capsule caps levothyroxine 112 mcg tablet 112 mcg PO QAM #90 tabs 11/27/23 diazepam 5 mg tablet (Valium) 5 mg PO BID PRN muscle spasm #8 12/27/23 tabs Allergies Allergy/AdvReac Type Severity Reaction Status Date / Time Penicillins [PENICILLINS] AdvReac Unknown VOMITING Verified 12/27/23 06:20 Review of Systems Review of Systems: Constitutional : No Fever, No Chills, No Fatigue ENT/Mouth : No sore throat, No Rhinorrhea Eyes: No Eye Pain, No Swelling, No Redness Cardiovascular : No Chest Pain, No SOB, No Dyspnea on Exertion Respiratory : No Cough, No Sputum Gastrointestinal : No Nausea, No Vomiting, No Diarrhea, No abdominal Pain Genitourinary : No Dysuria, No Urinary Frequency, No Hematuria, Musculoskeletal : No joint pain, No Myalgias, No Joint Swelling, pos neck pain Skin : No Skin Lesions, No rash Neuro : No Weakness, No Numbness, pos Dizziness, positive Headache Psych : No Anxiety/Panic, No Depression All other systems reviewed and are negative PMFSH Past Medical History Attestation statement: The following information was validated with the patient. Source: old records reviewed Medical History Bumps on skin Insomnia Cervical disc disorder with radiculopathy of mid-cervical region Fibromyalgia History of intussusception Carpal tunnel syndrome, right Peripheral vascular disease Insomnia Obstructive sleep apnea Hypothyroid Hypertension Hypercholesterolemia Varicose veins of lower extremity Arthritis Surgical History History of sleeve gastrectomy H/O oophorectomy History of tubal ligation History of colectomy Family History Family History Father Medical history unknown Mother Colon cancer Social History Social History Household Members: None Housing: Apartment Alcohol intake: current Alcohol intake frequency: 0-2 drinks per day Alcohol type: beer Comment: baileys 2x a week 2 shots Patient Tobacco Use Status: Former Tobacco user Tobacco use type: Cigarette Years Smoked: quit 17 years old Smoked in Last 30 Days: No e-Cigarette/Vaping Use: Never Used Second Hand Smoke Exposure: No Use of substances other than those prescribed or required for medical reasons: Yes Substance Use Type: Marijuana Advance Directives: No Advance Directives Information Provided: Yes Do you have a plan to hurt others: No Plan Patient : No service: No Current occupational status: disabled Cognitive needs: No Hearing needs: No Vision needs: No Physical Exam ED Vital Signs: Vital Signs - 24 hr 12/27/23 06:19 12/27/23 06:23 12/27/23 08:00 Temperature 97.8 F 98 F Pulse Rate 85 90 70 Respiratory Rate 16 16 Blood Pressure 170/108 H 159/84 H Pulse Oximetry 99 100 99 Oxygen Delivery Method Room Air Room Air Room Air BMI result Body Mass Index 28.2 Appearance: Alert. Oriented X3. No acute distress. Eyes: Pupils equal, round and reactive to light. ENT: Pharynx normal. Neck: ttp along L trapezius area ttp without mass or rash, no bruit seen LUE and RUE NV intact CVS: Normal heart rate and rhythm. Pulses normal. Respiratory: No respiratory distress. Breath sounds normal. Abdomen: Soft and nontender. Skin: Skin warm and dry. Normal skin color. Normal skin turgor. Extremities: No lower extremity edema. No calf ttp Neuro: Oriented X 3. No motor deficit. No sensory deficit. Medications Administered Discontinued Medications Generic Name Dose Route Start Last Admin Trade Name Freq PRN Reason Stop Dose Admin Sodium Chloride 1,000 mls @ 999 mls/hr 12/27/23 07:21 12/27/23 09:05 Ns IV 12/27/23 08:21 Infused .Q1H1M ONE Infusion Iohexol 70 ml 12/27/23 09:12 12/27/23 09:12 Iohexol 350 Mg/Ml 75 Ml Infus..Btl IV 12/27/23 09:13 70 ml ONCE ONE Administration Lorazepam 1 mg 12/27/23 07:21 12/27/23 08:01 Lorazepam 2 Mg/Ml Vial IVPUSH 12/27/23 07:22 1 mg STAT STA Administration Medical Decision Making Medical Decision Making [facility] Narrative: 63 yo female with PMH of hypothyroidism, HTN, HLD, arthritis, neck pain, sleeve gastrectomy here with c/o atraumatic L neck pain now with headaches and dizziness at this time upper extremities and lower extremities are NV intact will obtain basic labs, EKG, troponin x 1, CTA of head and neck to evaluate for cervical pathology or vertebral artery dissection. IV ativan for muscle relaxer ordered. Differential Diagnosis Differential Diagnoses: The differential diagnosis associated with the presentation includes strain, disc herniation, radiculopathy, dissection Admission/Observation Consideration of admission/observation: Escalation of care including admission/observation considered no acute findings feels better will DC h Lab Data [facility] Lab Attestation statement: I reviewed the patient's lab results. 12/27/23 07:30 12/27/23 07:30 Labs: Lab Results 12/27/23 Range/Units 07:30 WBC 8.2 (4.8-10.8) X10*3/uL RBC 5.19 (4.20-5.50) X10*6/uL Hgb 14.4 (12.0-16.0) g/dl Hct 42.6 (37.0-47.0) % MCV 82.1 (80.0-98.0) fL MCH 27.7 (27.0-33.0) pg MCHC 33.8 (31.0-35.0) g/dl RDW 14.4 (11.0-16.0) % Plt Count 219 (160-400) X10*3/uL MPV 9.0 L (9.4-12.3) fL Immature Gran % (Auto) 0.1 (0.0-0.4) % Neut % (Auto) 70.1 (45-73) % Lymph % (Auto) 20.4 (20-40) % [place] % (Auto) 7.8 (2-11) % Eos % (Auto) 1.1 (0-4) % Baso % (Auto) 0.5 (0-2) % Lymph # (Auto) 1.7 (1.2-4.9) X10*3/uL [place] # (Auto) 0.6 (0.1-1.2) X10*3/uL Eos # (Auto) 0.1 (0.0-0.4) X10*3/uL Baso # (Auto) 0.0 (0.0-0.2) X10*3/uL Abs Immat Gran (auto) 0.01 (0.00-0.03) X10*3/uL Absolute Neuts (auto) 5.8 (2.0-8.3) x10*3/uL Absolute Nucleated RBC 0.000 (0.0-0.012) X10*3/uL Nucleated RBC % (auto) 0.0 (0.0-0.2) /100WBC Sodium 141 (135-145) mmol/L Potassium 3.9 (3.3-5.1) mmol/L Chloride 107 (96-108) mmol/L Carbon Dioxide 28 (22-29) mmol/L Anion Gap 10 L (12-20) BUN 15 (9-16) mg/dL Creatinine 0.62 (0.5-1.4) mg/dL Estim Creat Clear Calc 88.4 Estimated GFR > 60 Random Glucose 112 (60-115) mg/dL Calcium 9.6 (8.4-10.2) mg/dL Magnesium 1.9 (1.6-2.6) mg/dL Total Bilirubin 0.3 (0.0-1.0) mg/dL Direct Bilirubin 0.1 (0.0-0.5) mg/dL AST 10 (5-31) U/L ALT 8 (0-31) U/L Alkaline Phosphatase 83 (39-117) U/L Troponin I High Sens < 2.7 (<3.5-17.0) ng/L Total Protein 6.5 (6.5-8.0) g/dL Albumin 3.6 (3.5-5.0) g/dL Lipase 27 (8-78) U/L Independent Interpretation I performed an independent interpretation of an: EKG and CT Scan (no acute findings) Interpretation: Rate: 71 Rhythm: NSR [place]: normal Normal P waves. Normal SIMONE. Normal QRS complex. ST T wave : inverted t wave III, no GEORGINA qTC: 419 prior studies: no acute ischemia The study has been interpreted contemporaneously by me. . Radiology Impression Discussion of test interpretation with radiology: I have reviewed the radiologist's reading. External Record Review External record reviewed: Office record Discharge Plan Discharge Clinical Impression: Acute neck pain Patient Disposition: Home, Self-Care Instructions: Acute Neck Pain (ED) Additional Instructions: labs reassuring, no acute findings on the CTA of head or neck return for worsening pain, numbness, weakness or any other concerns follow up with your doctor Prescriptions: New diazepam [Valium] 5 mg tablet 5 mg PO BID PRN (Reason: muscle spasm) Qty: 8 0RF Rx Instructions: partial fill is okay No Action simvastatin 20 mg tablet 20 mg PO BEDTIME 90 Days Qty: 90 2RF thiamine HCl (vitamin B1) 100 mg tablet 100 mg PO DAILY Qty: 90 3RF (DME) blood pressure monitor [Blood Pressure Kit] Kit See Rx Instructions .ROUTE .MEDSUPPLY Qty: 1 0RF Rx Instructions: As directed levalbuterol tartrate [Xopenex HFA] 45 mcg/actuation HFA aerosol inhaler 2 inh inhalation Q6H Qty: 15 0RF levothyroxine 112 mcg tablet 112 mcg PO QAM Qty: 90 2RF cholecalciferol (vitamin D3) 50 mcg (2,000 unit) capsule 2,000 unit PO DAILY 90 Days Qty: 90 3RF diclofenac sodium [Voltaren Arthritis Pain] 1 % gel 4 g topical QID Qty: 100 3RF Rx Instructions: apply to single knee, ankle, foot; for foot includes sole/toes/top of foot lidocaine 5 % ointment 1 appl topical BID PRN (Reason: pain) Qty: 50 1RF Rx Instructions: apply to most painful area twice daily as needed for pain bisacodyl [Dulcolax (bisacodyl)] 5 mg tablet,delayed release (DR/EC) 20 mg PO ONCE 1 Days Qty: 4 0RF Rx Instructions: take 4 tabs at noon the day before your colonoscopy Print Language: Ghanaian
--- NOTE | 2023-12-27 07:21 | ECG_ITS ---
Test Reason : DIZZINESS Blood Pressure : / mmHG Vent. Rate : 071 BPM Atrial Rate : 071 BPM P-R Int : 168 ms QRS Dur : 092 ms QT Int : 386 ms P-R-T Axes : 066 048 034 degrees QTc Int : 419 ms Normal sinus rhythm Normal ECG No previous ECGs available Referred By: Farzaneh Dunbar Electronically Signed By:LEANDRO GOMEZ
[2023-12-27 07:34] LABS: MANUAL DIFF FLAG NO
[2023-12-27 07:39] LABS: Basophils Percent Auto 0.5 % (0-2); Eosinophils Absolute Auto 0.1 X10*3/uL (0.0-0.4); Eosinophils Percent Auto 1.1 % (0-4); Hematocrit 42.6 % (37.0-47.0); Hemoglobin 14.4 g/dl (12.0-16.0); Imm Gran Abs Auto 0.01 X10*3/uL (0.00-0.03); Imm Gran Pct Auto 0.1 % (0.0-0.4); Lymphocytes Absolute Auto 1.7 X10*3/uL (1.2-4.9); Lymphocytes Percent Auto 20.4 % (20-40); Mean Corpuscular HGB Conc 33.8 g/dl (31.0-35.0); Mean Corpuscular Hemoglobin 27.7 pg (27.0-33.0); Mean Corpuscular Volume 82.1 fL (80.0-98.0); Monocytes Absolute Auto 0.6 X10*3/uL (0.1-1.2); Monocytes Percent Auto 7.8 % (2-11); Neutrophils Absolute Auto 5.8 x10*3/uL (2.0-8.3); Neutrophils Percent Auto 70.1 % (45-73); Platelet Count 219 X10*3/uL (160-400); Red Blood Count 5.19 X10*6/uL (4.20-5.50); Red Cell Distribution Width 14.4 % (11.0-16.0); White Blood Count 8.2 X10*3/uL (4.8-10.8)
[2023-12-27 07:49] LABS: Alanine Aminotransferase 8 U/L (0-31); Albumin Level 3.6 g/dL (3.5-5.0); Alkaline Phosphatase 83 U/L (39-117); Anion Gap 10 (12-20); Aspartate Amino Transferase 10 U/L (5-31); Bilirubin Direct 0.1 mg/dL (0.0-0.5); Bilirubin Total 0.3 mg/dL (0.0-1.0); Blood Urea Nitrogen 15 mg/dL (9-16); Calcium 9.6 mg/dL (8.4-10.2); Carbon Dioxide 28 mmol/L (22-29); Chloride 107 mmol/L (96-108); Creatinine Clr Calc Pharmacy 88.4; Estimated Glomerular Filt Rate > 60; Glucose Random 112 mg/dL (60-115); Lipase 27 U/L (8-78); Magnesium 1.9 mg/dL (1.6-2.6); Potassium 3.9 mmol/L (3.3-5.1); Sodium 141 mmol/L (135-145); Total Protein 6.5 g/dL (6.5-8.0)
[2023-12-27 07:57] LABS: Troponin-I High Sensitivity < 2.7 ng/L (<3.5-17.0)
[2023-12-27 08:00] VITALS: BP 159/84; PULSE 70; RESP 16; TEMP 36.6; O2SAT 99
[2023-12-27] MEDS: 0.9 % Sodium Chloride 1,000 ML 999 ML IV (08:00)
[2023-12-27] MEDS: LORazepam 2 MG/ML VIAL 1 MG IVPUSH (08:01)
--- NOTE | 2023-12-27 08:41 | MHC.EDTECH ---
hourly round and vital are completed, patient rest quietly and call ruiz within reach.
[2023-12-27] MEDS: iohexoL 350 MG/ML 75 ML INFUS..BTL 70 ML IV (09:12)
[2023-12-27 09:53] VITALS: BP 142/79; PULSE 68; RESP 18; TEMP 36.4; O2SAT 99
== END 2023-12-27 10:01 | disposition home or self-care (01) ==
PROVIDERS: Emergency Provider Emergency Medicine; PCP Internal Medicine
DX: M54.2 Cervicalgia (principal); I10 Essential (primary) hypertension; E78.5 Hyperlipidemia, unspecified; Z79.02 Long term (current) use of antithrombotics/antiplatelets; Z79.899 Other long term (current) drug therapy
CPT/HCPCS: 36415; 70496; 70498; 80048; 80076; 83690; 83735; 84484; 85025; 93005; 96361; 96374; 99285; J2060; Q9967

== ENCOUNTER 2023-12-28 09:50 | Outpatient (AMB) | payer OTHER, SELFPAY ==
--- NOTE | 2023-12-28 09:59 | A.OFFPC_ITS ---
Vital Signs 12/28/23 10:00 Height 5 ft 3 in Weight 158 lb 6 oz BMI 28.1 BP 130/70 Blood Pressure Location Rt brachial Position Sitting Pulse 72 Pulse Source Pulse Oximeter Pulse Oximetry (%) 96 Oxygen Delivery Method Room Air Intake Visit Reasons: headaches for a week and a half Intake Note: Patient is here to follow up on muscle swelling with pain in left neck radiate up to the back of head. Causes Headaches for three day . Was seen at [facility] on 12/27/23 and medication given is not helping. Project Management Professional Required: No Pacs Specialist: Not Required per policy Accompanied by: Self / Same As Patient Allergies Penicillins [PENICILLINS] Adverse Reaction (Unknown, Verified 12/28/23 10:00) VOMITING Tobacco use date assessed: 12/28/23 Dental Screening Dental Screen Date: 09/18/23 HPI headaches for a week and a half HPI Details 63-year-old overweight female with a his tory of sleeve gastrectomy hypothyroid hypertension hypercholesterolemia generalized anxiety disorder lumbar radiculopathy coming in for follow-up. Last seen in September for the blood pressure problem. Patient is due for colonoscopy due for mammogram due for bone density. Review of the notes in December 26 ER visit for neck pain patient was given muscle relaxants. Patient had an x-ray of the left knee due to pain showing moderate degenerative changes in the medial joint space compartment of the left knee. recently had water in the bathroom and had moving done. neck pain. [facility] Medical History (Updated 12/28/23 @ 10:27 by Tory Lyle MD) Neck pain Knee pain, left Bumps on skin Insomnia Cervical disc disorder with radiculopathy of mid-cervical region Fibromyalgia History of intussusception Carpal tunnel syndrome, right Peripheral vascular disease Insomnia Obstructive sleep apnea Hypothyroid Hypertension Hypercholesterolemia Varicose veins of lower extremity Arthritis Surgical History History of sleeve gastrectomy H/O oophorectomy History of tubal ligation History of colectomy Family History Father Medical history unknown Mother Colon cancer Social History Household Members: None Housing: Apartment Alcohol intake: current Alcohol intake frequency: 0-2 drinks per day Alcohol type: beer Comment: baileys 2x a week 2 shots Patient Tobacco Use Status: Former Tobacco user Tobacco use type: Cigarette Years Smoked: quit 17 years old e-Cigarette/Vaping Use: Never Used Second Hand Smoke Exposure: No Substance Use Type: Marijuana service: No Current occupational status: disabled Cognitive needs: No Hearing needs: No Vision needs: No Questionnaire Thrive Questionnaire Date Thrive assessed: 09/18/23 MARC-7 AMB Questionnaire MARC-7 Date MARC - 7 assessed: 09/18/23 Source: Developed by Drs. Robert Cotton, Violeta Pineda, Radames Casas and colleagues, with an educational sarah from [employer]. Physical exam (Primary Care) Vital Signs: Last Vital Signs Pulse 72 12/28/23 10:00 BP 130/70 12/28/23 10:00 Pulse Ox 96 12/28/23 10:00 Oxygen Delivery Method Room Air 12/28/23 10:00 BMI result Body Mass Index 28.1 Tobacco/Smoking Status: Tobacco use Status Tobacco use date assessed 12/28/23 12/28/23 10:08 Patient Tobacco Use Status Former Tobacco user 12/28/23 10:08 Tobacco use type Cigarette 12/28/23 10:08 e-Cigarette/Vaping Use Never Used 12/28/23 10:08 Thrive Assessment: Date of Thrive Assessment Date Thrive assessed 09/18/23 12/28/23 10:08 Const General: alert; No acute distress Eyes Conjunctivae: conjunctivae normal Resp Auscultation: clear to auscultation bilaterally Cardio Rate: regular rate Rhythm: regular rhythm GI Inspection: Yes normal to inspection Extrem General: Yes normal to inspection and No edema Assessment and Plan Assessment & Plan (1) Osteoarthritis of left knee: Code(s): M17.12 - Unilateral primary osteoarthritis, left knee Plan: Patient had an x-ray done showing left knee osteoarthritis (2) Osteopenia: Comment: October 2021 Code(s): M85.80 - Other specified disorders of bone density and structure, unspecified site Plan: Reminded about bone density (3) Hypertension: Code(s): I10 - Essential (primary) hypertension Qualifiers: Hypertension type: essential hypertension Qualified Code(s): I10 - Essential (primary) hypertension Plan: Patient's blood pressure has come down with weight loss. (4) Hypercholesterolemia: Code(s): E78.00 - Pure hypercholesterolemia, unspecified Plan: Avoid fried foods, chicken skin, eggs, butter margarine, pastries and meat. Be it pork or beef they have a lot of cholesterol LDL goal of less than 130 and triglyceride of less than 150 on simvastatin 20 mg once a day (5) Hypothyroid: Code(s): E03.9 - Hypothyroidism, unspecified Qualifiers: Hypothyroidism type: acquired Qualified Code(s): E03.9 - Hypothyroidism, unspecified Plan: Continue with thyroid medication (6) Obstructive sleep apnea: Comment: on the CPAP q night > 4 hours and benefits patient Code(s): G47.33 - Obstructive sleep apnea (adult) (pediatric) Plan: Continue with CPAP more than 4 hours a night and benefits from this. (7) Overweight (BMI 25.0-29.9): Code(s): E66.3 - Overweight Plan: Continue with diet and exercise (8) History of sleeve gastrectomy: Code(s): Z90.3 - Acquired absence of stomach [part of] Plan: Continue with follow-up with bariatric surgeon (9) Generalized anxiety disorder: Comment: Psychiatry Dr. William Boles, Code(s): F41.1 - Generalized anxiety disorder Plan: Continue with counseling and therapy (10) Neck pain: Code(s): M54.2 - Cervicalgia Plan: heat helps , decline PT. muscle relaxants advised Orders: Orders Comprehensive Met. Panel 3 Months E78.00 - Pure hypercholesterolemia, un specified Lipid Panel 3 Months E78.00 - Pure hypercholesterolemia, unspecified Complete Blood Count Auto Diff 3 Months E78.00 - Pure hypercholesterolemia, unspecified Free T4 (Free Thyroxine) 3 Months E78.00 - Pure hypercholesterolemia, unspecified Thyroid Stimulating Hormone 3 Months E78.00 - Pure hypercholesterolemia, unspecified Vitamin B12 and Folate 3 Months E78.00 - Pure hypercholesterolemia, unspecified Vitamin D 25-OH Total 3 Months E78.00 - Pure hypercholesterolemia, unspecified Medications: New cyclobenzaprine 5 mg PO TID PRN 20 tabs 1RF muscle spasm M54.2 - Cervicalgia Discontinued diazepam (Valium) partial fill is okay Discontinued Reason: Patient Completed Course 5 mg PO BID PRN 8 tabs 0RF muscle spasm Coding Level of Care Code Est Pt Level 4 (77322) Complex EM visit Add On G2211 Diagnoses Osteoarthritis of left knee M17.12 Osteopenia M85.80 Essential hypertension I10 Hypertension type: essential hypertension Hypercholesterolemia E78.00 Acquired hypothyroidism E03.9 Hypothyroidism type: acquired Obstructive sleep apnea G47.33 Overweight (BMI 25.0-29.9) E66.3 History of sleeve gastrectomy Z90.3 Generalized anxiety disorder F41.1 Neck pain M54.2
[2023-12-28 10:00] VITALS: BP 130/70; PULSE 72; O2SAT 96; BMI 28.1
== END 2023-12-28 15:36 | disposition home or self-care (01) ==
PROVIDERS: PCP Internal Medicine; Visit Provider Internal Medicine
DX: M17.12 Unilateral primary osteoarthritis, left knee (principal); M85.80 Other specified disorders of bone density and structure, unspecified site; I10 Essential (primary) hypertension; E78.00 Pure hypercholesterolemia, unspecified; E03.9 Hypothyroidism, unspecified; G47.33 Obstructive sleep apnea (adult) (pediatric); E66.3 Overweight; Z90.3 Acquired absence of stomach [part of]; F41.1 Generalized anxiety disorder; M54.2 Cervicalgia

== ENCOUNTER → 2023-12-28 09:50 | Outpatient (BNVA) | payer OTHER, SELFPAY | PROVIDERS: PCP Internal Medicine; Visit Provider Internal Medicine | DX: M17.12 Unilateral primary osteoarthritis, left knee (principal); M85.80 Other specified disorders of bone density and structure, unspecified site; I10 Essential (primary) hypertension; E78.00 Pure hypercholesterolemia, unspecified; E03.9 Hypothyroidism, unspecified; G47.33 Obstructive sleep apnea (adult) (pediatric); E66.3 Overweight; F41.1 Generalized anxiety disorder; M54.2 Cervicalgia; Z90.3 Acquired absence of stomach [part of] | CPT/HCPCS: 99212 ==

== ENCOUNTER 2023-12-31 08:53 | Emergency (ER) | payer OTHER, SELFPAY ==
[2023-12-31 09:31] VITALS: BP 149/82; PULSE 67; RESP 16; TEMP 36.4; O2SAT 100; BMI 27.3
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
[2023-12-31] MEDS: diazePAM 5 MG TABLET PO (12:53)
[2023-12-31 13:08] VITALS: BP 149/82; PULSE 67; RESP 16; TEMP 36.4; O2SAT 100
== END 2023-12-31 13:09 | disposition home or self-care (01) ==
PROVIDERS: Emergency Provider Emergency Medicine Emergency Medical Services; PCP Internal Medicine
DX: M62.830 Muscle spasm of back (principal); V43.52XD Car driver injured in collision with other type car in traffic accident, subsequent encounter; M54.2 Cervicalgia; R42 Dizziness and giddiness; R51.9 Headache, unspecified; I10 Essential (primary) hypertension
CPT/HCPCS: 99283; 99284

== ENCOUNTER 2024-02-04 09:19 | Outpatient (AMB) | payer OTHER, SELFPAY ==
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
[2024-02-04 09:46] VITALS: BP 144/66; PULSE 86; TEMP 36.4; O2SAT 98; BMI 28.2
== END 2024-02-04 10:29 | disposition home or self-care (01) ==
PROVIDERS: PCP Internal Medicine; Visit Provider Physician Assistant Surgical
DX: E66.3 Overweight (principal); Z68.28 Body mass index [BMI] 28.0-28.9, adult; Z90.3 Acquired absence of stomach [part of]; Z98.84 Bariatric surgery status
CPT/HCPCS: 99214; G2211

== ENCOUNTER → 2024-02-04 09:19 | Outpatient (BNVA) | payer OTHER, SELFPAY | PROVIDERS: PCP Internal Medicine; Visit Provider Physician Assistant Surgical | DX: E66.3 Overweight (principal); Z98.84 Bariatric surgery status; Z68.28 Body mass index [BMI] 28.0-28.9, adult | CPT/HCPCS: 99212 ==

== ENCOUNTER 2024-03-14 10:42 | Outpatient (AMB) | payer OTHER, SELFPAY ==
--- NOTE | 2024-03-14 10:44 | MHC.OFFVIS ---
Vital Signs 03/14/24 10:45 Height 5 ft 2 in Weight 154 lb BMI 28.2 BP 122/74 Intake Visit Reasons: New patient noninflammtory disorder of vagina Blasting Entry Specialist Required: No Information Interpreted: non-clinical & clinical General Maintenance Helper: General Maintenance Helper Present (Marianne ANAYA) Accompanied by: Self / Same As Patient Allergies Penicillins [PENICILLINS] Adverse Reaction (Unknown, Verified 03/14/24 10:48) VOMITING Post menopausal: Yes HPI Comments Details: The patient is presenting for sexually transmitted disease screen, no vaginal discharge, no lesions identified and no specific sexually transmitted disease exposure according to the patient. [facility] Medical History Neck pain Knee pain, left Bumps on skin Insomnia Cervical disc disorder with radiculopathy of mid-cervical region Fibromyalgia History of intussusception Carpal tunnel syndrome, right Peripheral vascular disease Insomnia Obstructive sleep apnea Hypothyroid Hypertension Hypercholesterolemia Varicose veins of lower extremity Arthritis Surgical History History of sleeve gastrectomy H/O oophorectomy History of tubal ligation History of colectomy Family History Father Medical history unknown Mother Colon cancer Social History Household Members: None Housing: Apartment Alcohol intake: current Alcohol intake frequency: 0-2 drinks per day Comment: baileys 2x a week 2 shots Patient Tobacco Use Status: Former Tobacco user Tobacco use type: Cigarette Years Smoked: quit 17 years old e-Cigarette/Vaping Use: Never Used Second Hand Smoke Exposure: No Substance Use Type: Marijuana service: No Current occupational status: disabled Cognitive needs: No Hearing needs: No Vision needs: No Female Reproductive History Menstrual control method: permanent sterilization Total pregnancies: 4 Full term: 2 Number of Living Children: 2 Date of Mammogram: 10/30/23 Review of Systems Const All systems reviewed & are unremarkable except as noted in HPI and below Physical Exam Vital Signs: Last Vital Signs BP 122/74 03/14/24 10:45 BMI result Body Mass Index 28.2 General: Yes no CVA tenderness External Female Exam: normal external appearance and normal appearance of the urethra Speculum Exam - Vagina: normal appearance of the vagina, normal palpation, no lesions and no masses Speculum Exam - Cervix: normal appearance of the cervix, normal palpation, no lesions, no masses and nontender Bimanual exam- vagina & uterus: normal bimanual exam, normal palpation, uterine size normal, normal palpation, uterine shape normal, No Cervical tenderness present and non-tender Bimanual Exam- Adnexa, other: normal adnexae Back/Spine/Pelvis Back: no CVA tenderness Assessment & Plan Assessment & Plan (1) Screening for STD (sexually transmitted disease): Code(s): Z11.3 - Encounter for screening for infections with a predominantly sexual mode of transmission Category: Medical Plan: STD screening tests done includes: BV panel for trichomonas, GC/CT will send patient for serology std screening for HIV, RPR, Hep b s Ag, HepC Ab. Instructions given the patient to schedule a follow-up appointment for repeat serology screen in 6 months for possible false negatives. Orders: Orders CT NG by PCR Today N89.8 - Other specified noninflammatory disorders of vagina Hepatitis B Surface Antigen Today Z20.2 - Contact with and (suspected) exposure to infections with a predominantly sexual mode of transmission HIV Ab/Ag Today Z20.2 - Contact with and (suspected) exposure to infections with a predominantly sexual mode of transmission Hepatitis C Antibody Today Z20.2 - Contact with and (suspected) exposure to infections with a predominantly sexual mode of transmission Bacterial Vaginosis Panel Today N89.8 - Other specified noninflammatory disorders of vagina Syphilis Screen Today Z20.2 - Contact with and (suspected) exposure to infections with a predominantly sexual mode of transmission Coding Level of Care Code New Pt Level 3 (27709) Diagnoses Screening for STD (sexually transmitted disease) Z11.3
[2024-03-14 10:45] VITALS: BP 122/74; BMI 28.2
== END 2024-03-14 11:00 | disposition home or self-care (01) ==
PROVIDERS: PCP Internal Medicine; Visit Provider Obstetrics & Gynecology
DX: Z11.3 Encounter for screening for infections with a predominantly sexual mode of transmission (principal)
CPT/HCPCS: 99203

== ENCOUNTER 2024-03-14 10:42 | Outpatient (REF) | payer OTHER, SELFPAY ==
[2024-03-14 12:55] LABS: Syphilis Screen Nonreactive (Nonreactive)
[2024-03-14 12:59] LABS: HBsAGNum1 0.29 S/CO (0.00-0.99); HIV AB/AG Nonreactive (Nonreactive); HIV Num 1 0.06 S/CO (0.00-0.99); Hepatitis B Surface Antigen Negative (Negative); ~HepC Num1 0.29 S/CO (0.00-0.79); ~Hepatitis C Antibody Nonreactive (Nonreactive)
[2024-03-14 13:25] LABS: CT PCR NOT DETECTED (Not Detect.); NG PCR NOT DETECTED (Not Detect.)
== END 2024-03-14 10:43 | disposition home or self-care (01) ==
LOC: HO.LNP 10:42
PROVIDERS: PCP Internal Medicine; Visit Provider Obstetrics & Gynecology
DX: N89.8 Other specified noninflammatory disorders of vagina (principal); Z20.2 Contact with and (suspected) exposure to infections with a predominantly sexual mode of transmission; Z11.3 Encounter for screening for infections with a predominantly sexual mode of transmission
CPT/HCPCS: 86780; 86803; 87340; 87389; 87491; 87591; 99202

== ENCOUNTER 2024-03-14 11:07 | Outpatient (REF) | payer OTHER, SELFPAY ==
[2024-03-14 15:11] LABS: Bacterial Vaginosis PCR POSITIVE (Negative); Candida Group PCR DETECTED (Not Detect); Candida glab krusei PCR NOT DETECTED (Not Detect); Trichomonas vaginalis PCR NOT DETECTED (Not Detect)
== END 2024-03-14 11:08 | disposition home or self-care (01) ==
LOC: HO.LAB 11:07
PROVIDERS: PCP Internal Medicine; Visit Provider Obstetrics & Gynecology
DX: N89.8 Other specified noninflammatory disorders of vagina (principal)
CPT/HCPCS: 0352U

== ENCOUNTER 2024-03-26 08:52 | Outpatient (AMB) | payer OTHER, SELFPAY ==
[2024-03-26 09:17] VITALS: BP 110/74; PULSE 83; O2SAT 97; BMI 28.6
--- NOTE | 2024-03-26 09:17 | A.OFFPC_ITS ---
Vital Signs 03/26/24 09:17 Height 5 ft 2 in Weight 156 lb 6 oz BMI 28.6 BP 110/74 Blood Pressure Location Lt brachial Position Sitting Pulse 83 Pulse Source Pulse Oximeter Pulse Oximetry (%) 97 Oxygen Delivery Method Room Air Intake Visit Reasons: pe Store Custodian Required: No Accompanied by: Self / Same As Patient Allergies Penicillins [PENICILLINS] Adverse Reaction (Unknown, Verified 03/26/24 09:17) VOMITING Medication List - Last Reconciled 03/26/24 by Tory Lyle MD blood pressure monitor (Blood Pressure Kit) As directed cholecalciferol (vitamin D3) 2,000 units PO DAILY 90 days diclofenac sodium 1% (Voltaren Arthritis Pain) 4 grams topical QID levalbuterol tartrate 45 mcg/actuation (Xopenex HFA) 2 inhalations inhalation Q6H levothyroxine 112 mcg PO QAM lidocaine 5% (Lidoderm) 1 patch topical DAILY simvastatin 20 mg PO BEDTIME 90 days thiamine HCl (vitamin B1) 100 mg PO DAILY Tobacco use date assessed: 03/26/24 Dental Screening Dental Screen Date: 03/26/24 Did you have a dental visit in the last 12 months?: No Did you have a dental problem in the last 6 months where you did not have access to dental care?: No Was dental information given to patient?: No HPI pe HPI Details - Continue monitoring diabetes with regu lar A1c testing; ensure prescription and resolution of pharmacy delays regarding Trulicity. Consider transition to Mounjaro pending endocrinology consultation if glycemic control does not improve. - Maintain ophthalmological surveillance of diabetic retinopathy and cataracts. - Order urine protein electrophoresis to evaluate renal function due to proteinuria. - Address musculoskeletal pain with a co mbination of physical therapy and prescription muscle relaxants for nightly use. - Continue current treatment with Rinvok e for rheumatoid arthritis, monitoring for any side effects or effectiveness in symptom management. - Encourage adherence to hypertension ma nagement strategies and regular monitoring. - Schedule routine mental health evaluat ions, continuing citalopram therapy and exploring adjunctive stress management strategies. - Schedule follow-up blood work and a ma mmogram, ensuring all preventative health screenings are up to date. - Blood work planned to include glucose, cholesterol, thyroid function, complete blood count, B12, and folic acid levels. - For colon cancer screening, the colon test is to be rescheduled. - Discussed vaccination status: Pneumoni a shot recommended; flu and shingles vaccines discussed. - Lifestyle modifications include recomm endations for increased water intake, dietary fiber, physical activity, and avoiding irritants in hygiene practices. - Discussed asthma management and CPAP u shahla adjustment. - Lives independently and consciously do es not want to inconvenience others. - Reports consuming alcohol approximatel y four times a week, generally minimal quantity. - Denies cigarette and recreational drug use. - Engaged in physical activity to the ex tent possible. - Notes managing family relations minima lly due to family dynamics. - Headache: Reports chronic headaches. - Cardiovascular: Denies chest pain or p alpitations. - Respiratory: Reports shortness of zamzam th upon waking. - Gastrointestinal: Reports constipation necessitating pushing; denies nausea, vomiting. - Neurological: Reports dizziness as whi rling sensations. - Genitourinary: Denies nocturia; previo us vaginal irritation was resolved. - Musculoskeletal: Reports neck pain wit h associated stiffness. - Dermatology: Denies skin rash or lesio ns. [facility] Medical History (Updated 03/26/24 @ 09:49 by Tory Lyle MD) Neck pain Knee pain, left Bumps on skin Insomnia Cervical disc disorder with radiculopathy of mid-cervical region Fibromyalgia History of intussusception Carpal tunnel syndrome, right Peripheral vascular disease Insomnia Obstructive sleep apnea Hypothyroid Hypertension Hypercholesterolemia Varicose veins of lower extremity Arthritis Surgical History (Updated 03/26/24 @ 09:36 by Tory Lyle MD) History of sleeve gastrectomy H/O oophorectomy History of tubal ligation History of colectomy Family History Father Medical history unknown Mother Colon cancer Social History (Updated 03/26/24 @ 09:46 by Tory Lyle MD) Household Members: None Housing: Apartment Alcohol intake: current Alcohol intake frequency: 0-2 drinks per day Comment: allie 4x a week 2 shots Patient Tobacco Use Status: Former Tobacco user Tobacco use type: Cigarette Years Smoked: quit 17 years old e-Cigarette/Vaping Use: Never Used Second Hand Smoke Exposure: No Substance Use Type: Marijuana service: No Current occupational status: disabled Cognitive needs: No Hearing needs: No Vision needs: No Questionnaire PHQ-9 Over the last 2 weeks, how often have you been bothered by any of the following problems? 1. Little interest or pleasure in doing things: nearly every day 2. Feeling down, depressed, or hopeless: nearly every day 3. Trouble falling or staying asleep, or sleeping too much: nearly every day 4. Feeling tired or having little energy: nearly every day 5. Poor appetite or overeating: nearly every day 6. Feeling bad about yourself - or that you are a failure or have let yourself or your family down: several days 7. Trouble concentrating on things, such as reading the newspaper or watching television: nearly every day 8. Moving or speaking so slowly that other people could have noticed. Or the opposite - being so fidgety or restless that you have been moving around a lot more than usual: not at all 9. Thoughts that you would be better off or of hurting yourself in some way: not at all Total score: 19 Source: Developed by Drs. Robert Cotton, Violeta Pineda, Radames Casas and colleagues, with an educational sarah from [email or web address]. Thrive Questionnaire Date Thrive assessed: 03/26/24 I am a: Patient What is your living situation today?: I have a steady place to live Within the past 12 months, did the food you bought not last and you didn't have the money to get more?: Never true Within the past 12 months, did you worry whether your food would run out before you got money to buy more?: Never true Do you have trouble paying for medicines?: No Do you have trouble getting transportation to medical appointments?: No Do you have trouble paying your heating and electricity bill?: No Do you have trouble taking care of your child, family member or friend?: No Do you have trouble with day-to-day activities such as bathing, preparing meals, shopping, managing finances, etc.?: I choose not to answer this question Are you currently unemployed and looking for a job?: No Are you interested in more education?: No Please select the resources that you would like help with: None Currently or been in a relationship where the following occur: No concerns reported THRIVE Score: 0 AUDIT C Alcohol Use Questionnaire (AUDIT-C) 1. How often do you have a drink containing alcohol?: 2-3 times a week 2. How many drinks containing alcohol do you have on a typical day when you are drinking?: 1 or 2 3. How often do you have six or more drinks on one occasion?: Never Total Score: 3 MARC-7 AMB Questionnaire MARC-7 Date MARC - 7 assessed: 03/26/24 Feeling nervous, anxious, or on edge: 0 = Not at all Not being able to stop or control worryin = Not at all Worrying too much about different things: 0 = Not at all Trouble relaxin = Not at all Being so restless that it is hard to sit still: 0 = Not at all Becoming easily annoyed or irritable: 0 = Not at all Feeling afraid as if something awful might happen: 0 = Not at all Total MARC-7 score (0-4 normal; 5-9 mild; 10-14 moderate; 15-21 severe): 0 Source: Developed by Drs. Robert Cotton, Violeta Pineda, Radames Casas and colleagues, with an educational sarah from [email or web address]. Review of Systems Const Denies poor appetite and Denies weakness Eyes Denies no additional complaints ENT Reports Normal hearing present, Denies dizziness, Denies nasal congestion, Denies tinnitus and Denies sore throat Card Denies chest pain, Denies syncope, Denies rapid heart rate and Denies dyspnea Resp Denies cough and Denies dyspnea GI Denies change in stool character, Reports constipation, Denies diarrhea, Denies nausea and Denies vomiting Denies urinary frequency, Denies difficulty voiding and Denies dysuria Neuro Reports Normal hearing present, Denies confusion, Denies dizziness, Denies syncope and Denies weakness Psych Denies confusion Physical exam (Primary Care) Vital Signs: Last Vital Signs Pulse 83 03/26/24 09:17 BP 110/74 03/26/24 09:17 Pulse Ox 97 03/26/24 09:17 Oxygen Delivery Method Room Air 03/26/24 09:17 BMI result Body Mass Index 28.6 Tobacco/Smoking Status: Tobacco use Status Tobacco use date assessed 03/26/24 03/26/24 09:21 Patient Tobacco Use Status Former Tobacco user 03/26/24 09:46 Tobacco use type Cigarette 03/26/24 09:46 e-Cigarette/Vaping Use Never Used 03/26/24 09:46 PHQ-9: PHQ-9 Score PHQ-9: Total score 19 03/26/24 10:13 Thrive Assessment: Date of Thrive Assessment Date Thrive assessed 03/26/24 03/26/24 09:21 Currently or been in a relationship where the following occur: No concerns reported Const General: No confusion Orientation/consciousness: No confusion HENMT Head: Yes normocephalic Ears: external ears normal and TM's normal bilaterally Face and sinus: Yes normal facial exam Mouth: moist mucous membranes Throat: Yes tonsils normal Eyes Conjunctivae: conjunctivae normal Pupils: Equal, round and reactive pupils present and Pupil accommodation reflex normal Direct Ophthalmoscopy: normal light reflex Neck Neck: No lymphadenopathy Thyroid: Thyroid normal Chest Chest palpation & inspection: normal inspection of the chest Resp Effort & Inspection: normal respiratory effort and no audible wheezes Auscultation: clear to auscultation bilaterally, no crackles, no wheezes and lung sounds not diminished Cardio Rate: regular rate Rhythm: regular rhythm Peripheral pulses: radial pulses present and dorsalis pedis present GI Palpation (GI): no masses Auscultation: normal bowel sounds and normoactive bowel sounds Rectal Exam - Female: deferred Skin General skin exam: no rashes or lesions noted Rashes: no rashes Neuro General: No confusion Cranial nerves: Yes Equal, round and reactive pupils present and Yes Normal he aring present Cognition (Neuro): normal cognition Gait exam (Neuro): Normal gait present Motor exam (neuro): 5/5 motor strength present throughout Deep tendon reflexes (DTR's): Right brachioradialis reflex intensity grade: 2+, Left brachioradialis reflex intensity grade: 2+, Right patellar reflex intensity grade: 2+ and Left patellar reflex intensity grade: 2+ Extrem General: No edema Immunizations pneumoc 20-cely conj-dip cr(PF) 0.5 mL IM syringe Performing Provider: Tory Lyle MD [facility] [place] [facility] Administered by: JASPER Courtney on 03/26/24 10:13 Dose Route Admin Location Dispensed Lot Number Expiration Date [facility] [place][NOTE 2] Document Control Manager 0.5 mL IM Left Deltoid 0.5 mL [id number] 07/08/25 1646-1296-99 [employer] VIS Given Date VIS Provided VIS Publication Date 03/26/24 Single Vaccine 21 Eligibility Eligibility Date Funding Source Not [facility] Eligible 03/26/24 Private Coding Level of Care Code Est Pt Prev Care 40-64y([id number]) Diagnoses Annual physical exam Z00.00 History of sleeve gastrectomy Z90.3 Essential hypertension I10 Hypertension type: essential hypertension Hypercholesterolemia E78.00 Acquired hypothyroidism E03.9 Hypothyroidism type: acquired Obstructive sleep apnea G47.33 Overweight (BMI 25.0-29.9) E66.3 Osteopenia of multiple sites M85.89 Osteopenia location: multiple sites Colon cancer screening Z12.11 Generalized anxiety disorder F41.1 Asthma J45.909 Constipation K59.00 Assessment & Plan Assessment & Plan (1) Annual physical exam: Code(s): Z00.00 - Encounter for general adult medical examination without abnormal findings Category: Medical Plan: Patient is advised to eat healthy, keep well hydrated, keep active and have adequate sleep. (2) History of sleeve gastrectomy: Comment: 2019 Code(s): Z90.3 - Acquired absence of stomach [part of] Category: Surgical Plan: Continue to follow-up with bariatric surgeon plans of having abdominoplasty (3) Hypertension: Code(s): I10 - Essential (primary) hypertension Category: Medical Qualifiers: Hypertension type: essential hypertension Qualified Code(s): I10 - Essential (primary) hypertension Plan: Continue with blood pressure medication. Decrease salt intake and exercise patient is not on any blood pressure medication and this has been controlled (4) Hypercholesterolemia: Code(s): E78.00 - Pure hypercholesterolemia, unspecified Category: Medical Plan: Avoid fried foods, chicken skin, eggs, butter margarine, pastries and meat. Be it pork or beef they have a lot of cholesterol patient will need blood work taking simvastatin 20 mg at bedtime (5) Hypothyroid: Code(s): E03.9 - Hypothyroidism, unspecified Category: Medical Qualifiers: Hypothyroidism type: acquired Qualified Code(s): E03.9 - Hypothyroidism, unspecified Plan: Continue with thyroid medication (6) Obstructive sleep apnea: Comment: on the CPAP q night > 4 hours and benefits patient Code(s): G47.33 - Obstructive sleep apnea (adult) (pediatric) Category: Medical Plan: Continue with CPAP more than 4 hours a night and benefits from this. (7) Overweight (BMI 25.0-29.9): Code(s): E66.3 - Overweight Category: Medical Plan: Continue with diet and exercise and follows up with bariatric surgeon (8) Osteopenia: Comment: October 2021 Code(s): M85.80 - Other specified disorders of bone density and structure, unspecified site Category: Medical Qualifiers: Osteopenia location: multiple sites Qualified Code(s): M85.89 - Other specified disorders of bone density and structure, multiple sites Plan: Discussed about repeating bone density (9) Colon cancer screening: Code(s): Z12.11 - Encounter for screening for malignant neoplasm of colon Category: Medical Plan: Patient is reminded about colon cancer screening (10) Generalized anxiety disorder: Comment: Psychiatry Dr. William Boles, Code(s): F41.1 - Generalized anxiety disorder Category: Medical Plan: Continue to follow-up with psychiatry and counseling (11) Asthma: Code(s): J45.909 - Unspecified asthma, uncomplicated Category: Medical (12) Constipation: Code(s): K59.00 - Constipation, unspecified Category: Medical Plan - Continue blood pressure monitoring as current control is stable. - Adjust asthma management with a prescription for a controller inhaler Cymbicort) to potentially improve symptoms. - Recommend a high-fiber diet and increased fluid intake to address constipati on, alongside a prescription for a mild laxative. - Address neck pain with continued pain management discussion, avoiding potential irritants. - Reschedule and complete colon screening with arrangements for post-procedure care. - Explore alternatives to CPAP mask that provide more comfort. - Encourage lifestyle modifications, including smoking cessation discussions due to family history of cancer. Patient was informed and verbally consented to the use of an ambient scribe for clinic note documentation during this visit. I discussed with the patient that her neck pain may be associated with cervical spine malalignment and aging-related changes. While previous physical therapy was ineffective, alternative approaches could be explored. Regarding the development of asthma post-COVID, I suggested trying a different inhaler formulation (Cymbicort) and emphasized adherence to prescribed usage. I informed the patient of the potential side effects and benefits of receiving a pneumonia vaccine, and we agreed on proceeding with it. The importance of colon cancer screening was reinforced given her family history. We also reviewed lifestyle adjustments that could improve her constipation and general health. I emphasized the vital need to remain engaged in active disease surveillance and preventive health measures, encouraging regular visits to ensure comprehensive care. - Schedule to complete blood work this week as discussed. - Follow up with rescheduling the colonoscopy appointment and arrange for a safe return post-procedure. - Begin using the new inhaler (Cymbicort) as prescribed and monitor respiratory symptoms. - Drink 6-8 glasses of water daily and increase dietary fiber to alleviate constipation. - Consider using a prescribed laxative at bedtime if constipation persists. - Ensure to avoid any irritants during personal hygiene, particularly around sensitive areas. - Coordinate with your sleep apnea care provider to adjust CPAP settings for comfort. - Monitor blood pressure regularly at home and maintain current medications. - Discuss with pharmacy about obtaining pneumonia vaccination during flu season if agreed. - Avoid cigarette use, limit alcohol intake, and maintain regular physical activity. - Return for follow-up or any concerns that arise with health status or medications. Orders: Orders Pneumococcal 20 Immunization Today Z23 - Encounter for immunization Vitamin B12 and Folate Today E78.00 - Pure hypercholesterolemia, unspecified Vitamin D 25-OH Total Today E78.00 - Pure hypercholesterolemia, unspecified Comprehensive Met. Panel Today E78.00 - Pure hypercholesterolemia, unspecified Free T4 (Free Thyroxine) Today E78.00 - Pure hypercholesterolemia, unspecified Hemoglobin A1c Today E78.00 - Pure hypercholesterolemia, unspecified Medications: New budesonide-formoterol 80-4.5 mcg/actuation (Symbicort) 2 puffs inhalation Q12H 10.2 grams 0RF J45.909 - Unspecified asthma, uncomplicated sennosides-docusate sodium 8.6-50 mg (Senna Plus) 2 tab-caps (2 x 8.6-50 mg) PO BID 60 caps 4RF K59.00 - Constipation, unspecified
== END 2024-03-26 10:06 | disposition home or self-care (01) ==
PROVIDERS: PCP Internal Medicine; Visit Provider Internal Medicine
DX: Z00.00 Encounter for general adult medical examination without abnormal findings (principal); Z90.3 Acquired absence of stomach [part of]; I10 Essential (primary) hypertension; E78.00 Pure hypercholesterolemia, unspecified; E03.9 Hypothyroidism, unspecified; G47.33 Obstructive sleep apnea (adult) (pediatric); E66.3 Overweight; M85.89 Other specified disorders of bone density and structure, multiple sites; Z12.11 Encounter for screening for malignant neoplasm of colon; F41.1 Generalized anxiety disorder; J45.909 Unspecified asthma, uncomplicated; K59.00 Constipation, unspecified; Z23 Encounter for immunization

== ENCOUNTER → 2024-03-26 08:52 | Outpatient (BNVA) | payer OTHER, SELFPAY | PROVIDERS: PCP Internal Medicine; Visit Provider Internal Medicine | DX: Z00.00 Encounter for general adult medical examination without abnormal findings (principal); Z23 Encounter for immunization; I10 Essential (primary) hypertension; Z90.3 Acquired absence of stomach [part of]; E78.00 Pure hypercholesterolemia, unspecified; E03.9 Hypothyroidism, unspecified; G47.33 Obstructive sleep apnea (adult) (pediatric); E66.3 Overweight; M85.89 Other specified disorders of bone density and structure, multiple sites; F41.1 Generalized anxiety disorder; K59.00 Constipation, unspecified; J45.909 Unspecified asthma, uncomplicated | CPT/HCPCS: 90471; 90677; 96127; 99396 ==

== ENCOUNTER 2024-04-14 10:34 | Outpatient (AMB) | payer OTHER, SELFPAY ==
[2024-04-14 10:53] VITALS: BP 120/62; PULSE 84; O2SAT 98; BMI 29.4
--- NOTE | 2024-04-14 10:53 | A.OFFPC_ITS ---
Vital Signs 04/14/24 10:53 Height 5 ft 2 in Weight 161 lb BMI 29.4 BP 120/62 Blood Pressure Location Lt brachial Position Sitting Pulse 84 Pulse Source Pulse Oximeter Pulse Oximetry (%) 98 Oxygen Delivery Method Room Air Intake Visit Reasons: Hypothyroid hypercholesterolemia Allergies Penicillins [PENICILLINS] Adverse Reaction (Unknown, Verified 04/14/24 10:55) VOMITING Tobacco use date assessed: 04/14/24 Dental Screening Dental Screen Date: 04/14/24 Did you have a dental visit in the last 12 months?: Yes Did you have a dental problem in the last 6 months where you did not have access to dental care?: No Was dental information given to patient?: Patient has dentist HPI Hypothyroid hypercholesterolemia HPI Details chills neck l pain, problem with neighbor. The patient is a 63-year-old female presenting with musculoskeletal pain predominantly affecting her neck, bones, and lower back. The symptoms have been progressively worsening and are associated with arthritis of the spine, diagnosed previously. The pain intensifies with physical activities such as standing for prolonged periods and attempting to clear her residence, leading to significant discomfort and swelling, particularly noted in the legs. The patient has been managing her symptoms with massages but reports persistent lower back pain and muscle spasms. Therapeutic interventions, including physical therapy, were attempted, though the patient did not find them beneficial and decided to discontinue after an unsatisfactory experience. Concurrently, the patient is experiencing significant anxiety and fearfulness due to a distressing social situation involving a neighbor, which has exacerbated her psychological stress. This led to heightened anxiety, expressed as a sense of being monitored, and has impacted her sleep and overall sense of security. The patient describes ongoing legal actions to address this situation, contributing further to her emotional distress. She admits that when she felt more emotionally stable, her musculoskeletal symptoms would lessen, suggesting a link between her psychological and physical health. Previously, the patient has been treated for anxiety and depression, and uses a physician-prescribed CPAP device. The patient?s hypertension was not specifically discussed during this visit. [facility] Medical History (Updated 03/26/24 @ 09:49 by Tory Lyle MD) Neck pain Knee pain, left Bumps on skin Insomnia Cervical disc disorder with radiculopathy of mid-cervical region Fibromyalgia History of intussusception Carpal tunnel syndrome, right Peripheral vascular disease Insomnia Obstructive sleep apnea Hypothyroid Hypertension Hypercholesterolemia Varicose veins of lower extremity Arthritis Surgical History (Updated 03/26/24 @ 09:36 by Tory Lyle MD) History of sleeve gastrectomy H/O oophorectomy History of tubal ligation History of colectomy Family History Father Medical history unknown Mother Colon cancer Social History (Updated 03/26/24 @ 09:46 by Tory Lyle MD) Household Members: None Housing: Apartment Alcohol intake: current Alcohol intake frequency: 0-2 drinks per day Comment: allie 4x a week 2 shots Patient Tobacco Use Status: Former Tobacco user Tobacco use type: Cigarette Years Smoked: quit 17 years old e-Cigarette/Vaping Use: Never Used Second Hand Smoke Exposure: No Substance Use Type: Marijuana service: No Current occupational status: disabled Cognitive needs: No Hearing needs: No Vision needs: No Questionnaire PHQ-9 Over the last 2 weeks, how often have you been bothered by any of the following problems? 1. Little interest or pleasure in doing things: nearly every day 2. Feeling down, depressed, or hopeless: nearly every day 3. Trouble falling or staying asleep, or sleeping too much: nearly every day 4. Feeling tired or having little energy: nearly every day 5. Poor appetite or overeating: nearly every day 6. Feeling bad about yourself - or that you are a failure or have let yourself or your family down: several days 7. Trouble concentrating on things, such as reading the newspaper or watching television: nearly every day 8. Moving or speaking so slowly that other people could have noticed. Or the opp osite - being so fidgety or restless that you have been moving around a lot more than usual: not at all 9. Thoughts that you would be better off or of hurting yourself in some way: not at all Total score: 19 Source: Developed by Drs. Robert Cotton, Violeta Pineda, Radames Casas and colleagues, with an educational sarah from [employer]. Thrive Questionnaire Date Thrive assessed: 04/14/24 I am a: Patient What is your living situation today?: I have a steady place to live Within the past 12 months, did the food you bought not last and you didn't have the money to get more?: Never true Within the past 12 months, did you worry whether your food would run out before you got money to buy more?: Never true Do you have trouble paying for medicines?: No Do you have trouble getting transportation to medical appointments?: No Do you have trouble paying your heating and electricity bill?: No Do you have trouble taking care of your child, family member or friend?: No Do you have trouble with day-to-day activities such as bathing, preparing meals, shopping, managing finances, etc.?: I choose not to answer this question Are you currently unemployed and looking for a job?: No Are you interested in more education?: No Please select the resources that you would like help with: None Currently or been in a relationship where the following occur: No concerns reported THRIVE Score: 0 MARC-7 AMB Questionnaire MARC-7 Date MARC - 7 assessed: 04/14/24 Feeling nervous, anxious, or on edge: 0 = Not at all Not being able to stop or control worryin = Not at all Worrying too much about different things: 0 = Not at all Trouble relaxin = Not at all Being so restless that it is hard to sit still: 0 = Not at all Becoming easily annoyed or irritable: 0 = Not at all Feeling afraid as if something awful might happen: 0 = Not at all Total MARC-7 score (0-4 normal; 5-9 mild; 10-14 moderate; 15-21 severe): 0 Source: Developed by Drs. Robert Cotton, Violeta Pineda, Radames Casas and colleagues, with an educational sarah from [employer]. Physical exam (Primary Care) Vital Signs: Last Vital Signs Pulse 84 04/14/24 10:53 BP 120/62 04/14/24 10:53 Pulse Ox 98 04/14/24 10:53 Oxygen Delivery Method Room Air 04/14/24 10:53 BMI result Body Mass Index 29.4 Tobacco/Smoking Status: Tobacco use Status Tobacco use date assessed 04/14/24 04/14/24 11:03 Patient Tobacco Use Status Former Tobacco user 04/14/24 11:03 Tobacco use type Cigarette 04/14/24 11:03 e-Cigarette/Vaping Use Never Used 04/14/24 11:03 PHQ-9: PHQ-9 Score PHQ-9: Total score 19 04/14/24 11:03 Thrive Assessment: Date of Thrive Assessment Date Thrive assessed 04/14/24 04/14/24 11:03 Currently or been in a relationship where the following occur: No concerns reported Const General: alert; No acute distress Eyes Conjunctivae: conjunctivae normal Resp Auscultation: clear to auscultation bilaterally Cardio Rate: regular rate Rhythm: regular rhythm GI Inspection: Yes normal to inspection Extrem General: Yes normal to inspection and No edema Coding Level of Care Code Est Pt Level 4 (69329) Complex EM visit Add On G2211 Diagnoses Essential hypertension I10 Hypertension type: essential hypertension Hypercholesterolemia E78.00 Acquired hypothyroidism E03.9 Hypothyroidism type: acquired Obstructive sleep apnea G47.33 Overweight (BMI 25.0-29.9) E66.3 History of sleeve gastrectomy Z90.3 Generalized anxiety disorder F41.1 Lumbar degenerative disc disease M51.36 Assessment & Plan Assessment & Plan (1) Hypertension: Code(s): I10 - Essential (primary) hypertension Category: Medical Qualifiers: Hypertension type: essential hypertension Qualified Code(s): I10 - Essential (primary) hypertension Plan: adivsed to get blood work (2) Hypercholesterolemia: Code(s): E78.00 - Pure hypercholesterolemia, unspecified Category: Medical Plan: Patient is reminded about the blood work continue with present medication (3) Hypothyroid: Code(s): E03.9 - Hypothyroidism, unspecified Category: Medical Qualifiers: Hypothyroidism type: acquired Qualified Code(s): E03.9 - Hypothyroidism, unspecified Plan: Reminded about the blood work. Continue with the present does (4) Obstructive sleep apnea: Comment: on the CPAP q night > 4 hours and benefits patient Code(s): G47.33 - Obstructive sleep apnea (adult) (pediatric) Category: Medical Plan: continue with using the CPAP QD > 4 hours and benefits from this (5) Overweight (BMI 25.0-29.9): Code(s): E66.3 - Overweight Category: Medical Plan: Continue with diet and exercise (6) History of sleeve gastrectomy: Comment: 2019 Code(s): Z90.3 - Acquired absence of stomach [part of] Category: Surgical Plan: Continue to follow-up with bariatric surgeons (7) Generalized anxiety disorder: Comment: Psychiatry Dr. William Boles, Code(s): F41.1 - Generalized anxiety disorder Category: Medical Plan: Advised to continue follow-up with therapist and patient is proceeding through legal or means help with this neighbor anxiety. (8) Lumbar degenerative disc disease: Code(s): M51.36 - Other intervertebral disc degeneration, lumbar region Category: Medical Plan: Muscle relaxants sent in Plan - Continue using the CPAP device as previously prescribed and ensure compliance for sleep apnea management. - Initiate cyclobenzaprine to address musculoskeletal pain and muscle spasms, with a note on the potential for drowsiness. - Investigate further pharmacotherapy options for the management of anxiety and possible exacerbation of depression, focusing on medications or therapies compatible with existing treatments. - Encourage maintaining current safety measures due to the ongoing external stressor impacting mental health, including consideration for legal support as needed. - Schedule a follow-up appointment to monitor the efficacy of the muscle relaxant and any impact on the patient's mental health, alongside the current stress management approaches. - Advise lifestyle modifications, including stress reduction activities and physical activity modification to aid in pain management and mental wellbeing, aligning with her existing limitations. - Recommended monitoring blood pressure regularly due to her known hypertension, with adjustments to antihypertensive therapy contingent on current readings. Orders: Referrals Gastroenterology Referral Z12.11 - Encounter for screening for malignant neoplasm of colon Medications: New cyclobenzaprine 5 mg PO TID PRN 30 tabs 0RF muscle spasm M51.36 - Other intervertebral disc degeneration, lumbar region
== END 2024-04-14 11:26 | disposition home or self-care (01) ==
PROVIDERS: PCP Internal Medicine; Visit Provider Internal Medicine
DX: I10 Essential (primary) hypertension (principal); E78.00 Pure hypercholesterolemia, unspecified; E03.9 Hypothyroidism, unspecified; G47.33 Obstructive sleep apnea (adult) (pediatric); E66.3 Overweight; Z90.3 Acquired absence of stomach [part of]; F41.1 Generalized anxiety disorder; M51.369 Other intervertebral disc degeneration, lumbar region without mention of lumbar back pain or lower extremity pain

== ENCOUNTER → 2024-04-14 10:34 | Outpatient (BNVA) | payer OTHER, SELFPAY | PROVIDERS: PCP Internal Medicine; Visit Provider Internal Medicine | DX: E03.9 Hypothyroidism, unspecified (principal); E78.00 Pure hypercholesterolemia, unspecified; I10 Essential (primary) hypertension; G47.33 Obstructive sleep apnea (adult) (pediatric); F41.1 Generalized anxiety disorder; M51.369 Other intervertebral disc degeneration, lumbar region without mention of lumbar back pain or lower extremity pain; E66.3 Overweight; Z90.3 Acquired absence of stomach [part of]; Z68.29 Body mass index [BMI] 29.0-29.9, adult | CPT/HCPCS: 99212 ==

== ENCOUNTER 2024-05-20 09:13 | Outpatient (REF) | payer OTHER, SELFPAY ==
[2024-05-20 09:43] LABS: MANUAL DIFF FLAG NO
--- OUTSIDE RECORDS SUMMARY | 2024-05-20 10:22 | XMS_ITS | Clinical Summary ---
Author Organization [facility] ity Address [address] [place] [address] Care Team Providers Care Spinneret Cleaner Name Role Phone Tory Lyle MD Primary Care Provider [phone] Social History Tobacco Use Types Packs/Day Years Used Date Smoking Tobacco: Never Assessed Comments Unknown Sex and Gender Information Value Date Recorded Sex Assigned at Not on file Legal Sex Female 9:43 PM EST Gender Identity Not on file Sexual Orientation Not on file Plan of Treatment Health Maintenance Due Date Last Done Comments Breast Cancer Screening 1960 DTaP,Tdap,and Td Vaccines (1 - Tdap) 12/23/1967 Cervical Cancer Screening: P ap Smear 1981 Pneumococcal Vaccine: 50+ Ye ars (1 of 1 - PCV) 2010 Zoster Vaccines (1 of 2) 2010 Colorectal Cancer Screening: Colonoscopy 05/08/2023 Depression Screening 05/08/2023 HIV Screening 05/08/2023 Hepatitis C Screening 05/08/2023 Social Influencers of Health Screening 05/08/2023 COVID-19 Vaccine (1 - 2023-2 5 season) 2023 Influenza Vaccine (#1) 2023 RSV Immunization Patients 60 + Years Old (1 - 1-dose 75+ series) 12/23/2035 HIB Vaccines Aged Out No longer eligi ble based on patient's age to complete this topic HPV Vaccines Aged Out No longer eligi ble based on patient's age to complete this topic Hepatitis A Vaccines Aged Out No long er eligible based on patient's age to complete this topic Hepatitis B Vaccines Aged Out No long er eligible based on patient's age to complete this topic IPV Vaccines Aged Out No longer eligi ble based on patient's age to complete this topic MMR Vaccines Aged Out No longer eligi ble based on patient's age to complete this topic Meningococcal ACWY Vaccine Aged Out N o longer eligible based on patient's age to complete this topic Meningococcal B Vacine Aged Out No lo nger eligible based on patient's age to complete this topic Pneumococcal Vaccine: Pediat rics (0 to 5 Years) and At-Risk Patients (6 to 64 Years) Aged Out No longer eligible b ased on patient's age to complete this topic RSV Immunization Patients Un joao 20 months Aged Out No longer eligible b ased on patient's age to complete this topic Varicella Vaccines Aged Out No longer eligible based on patient's age to complete this topic Care Teams Spinneret Cleaner Relationship Specialty Start Date End Date Tory Lyle MD [address] [place] [address] Dr [address] [facility] [place] [address] PCP - General Internal Medicine 12/29/19
--- OUTSIDE RECORDS SUMMARY | 2024-05-20 10:22 | XMS_ITS | Clinical Summary ---
Author Organization [facility] Address [address] [place] [address] Care Team Providers Care Skid Road Man Name Role Phone Tory Lyle MD Primary Care Provider [phone] Social History Tobacco Use Types Packs/Day Years Used Date Smoking Tobacco: Never Assessed Sex and Gender Information Value Date Recorded Sex Assigned at Not on file Gender Identity Not on file Sexual Orientation Not on file Plan of Treatment Health Maintenance Due Date Last Done Comments Hepatitis C Screening 1960 COVID-19 Vaccine (#1) 06/21/1961 Depression Screening 1972 Preventative Health Evaluation 1978 DTap / Tdap / Td (1 - Tdap) 12/23/1979 Cervical Cancer Screening (P ap Smear) 1981 Colon Cancer Screening (Colonoscopy) 2005 Breast Cancer Screening (Mammogram) 2010 Shingrix-Zoster Vaccine (1 of 2) 2010 Influenza Vaccine (#1) 2023 RSV Adult > 60+ Yrs or Pregn ant (1 - 1-dose 75+ series) 12/23/2035 Hepatitis B Vaccines Aged Out No long er eligible based on patient's age to complete this topic Pneumococcal Vaccine Aged Out No long er eligible based on patient's age to complete this topic RSV Ped < 20 months Aged Out No longe r eligible based on patient's age to complete this topic Care Teams Skid Road Man Relationship Specialty Start Date End Date Tory Lyle MD [address] [place] [address] [address] [facility] [place] [address] PCP - General Internal Medicine 12/29/19
[2024-05-20 11:25] LABS: Eosinophils Absolute Auto 0.3 X10*3/uL (0.0-0.4); Eosinophils Percent Auto 6.3 % (0-4); Hematocrit 43.4 % (37.0-47.0); Hemoglobin 14.4 g/dl (12.0-16.0); Mean Corpuscular HGB Conc 33.2 g/dl (31.0-35.0); Mean Corpuscular Hemoglobin 27.8 pg (27.0-33.0); Mean Corpuscular Volume 83.8 fL (80.0-98.0); Mean Platelet Volume 9.8 fL (9.4-12.3); Monocytes Absolute Auto 0.5 X10*3/uL (0.1-1.2); Monocytes Percent Auto 12.7 % (2-11); Neutrophils Absolute Auto 1.3 x10*3/uL (2.0-8.3); Platelet Count 227 X10*3/uL (160-400); Red Blood Count 5.18 X10*6/uL (4.20-5.50); Red Cell Distribution Width 14.3 % (11.0-16.0); White Blood Count 4.1 X10*3/uL (4.8-10.8)
[2024-05-20 11:30] LABS: Estimated Average Glucose 105 mg/dL; Hemoglobin A1C 129.2615 umol/L; Hemoglobin A1c % 5.3 % (<6.0); Total Hemoglobin (HGBA1C) 3704.9364 umol/L
[2024-05-20 12:49] LABS: Alanine Aminotransferase 24 U/L (0-31); Albumin Level 3.9 g/dL (3.5-5.0); Alkaline Phosphatase 74 U/L (39-117); Anion Gap 9 (12-20); Aspartate Amino Transferase 24 U/L (5-31); Bilirubin Total 0.4 mg/dL (0.0-1.0); Blood Urea Nitrogen 23 mg/dL (9-16); Calcium 9.5 mg/dL (8.4-10.2); Carbon Dioxide 28 mmol/L (22-29); Chloride 110 mmol/L (96-108); Cholesterol 160 mg/dL (<200); Estimated Glomerular Filt Rate > 60; Glucose Random 83 mg/dL (60-115); HDL Cholesterol 70 mg/dL (>40); LDL Cholesterol Calculated 84 mg/dL (<100); Potassium 4.2 mmol/L (3.3-5.1); Sodium 143 mmol/L (135-145); Total Protein 7.1 g/dL (6.5-8.0); Triglycerides 31 mg/dL (<150)
[2024-05-20 13:05] LABS: Free T4 (Free Thyroxine) 1.24 ng/dL (0.71-1.85); Thyroid Stimulating Hormone 0.16 uIU/mL (0.32-4.0); Vitamin D 25-OH Total 57.9 ng/mL (>30)
[2024-05-20 13:31] LABS: Folate 14.3 ng/mL (> or = 4.0); Vitamin B12 508 pg/mL (200-900)
== END 2024-05-20 09:14 | disposition home or self-care (01) ==
LOC: HO.LAB 09:13
PROVIDERS: Absent Provider Physician Assistant Surgical; PCP Internal Medicine; Visit Provider Internal Medicine
DX: E78.00 Pure hypercholesterolemia, unspecified (principal)
CPT/HCPCS: 36415; 80053; 80061; 82306; 82607; 82746; 83036; 84439; 84443; 85025

== ENCOUNTER 2024-06-17 11:25 | Outpatient (AMB) | payer OTHER, SELFPAY ==
--- NOTE | 2024-06-17 11:41 | A.OFFVIS_ITS ---
VS Expanded 06/17/24 11:52 BP 144/80 H Blood Pressure Location Rt brachial Blood Pressure Position Sitting Pulse 81 Pulse Source Pulse Oximeter Temp 97.2 F Temperature Source Temporal Artery Scan Pulse Oximetry 96 Oxygen Delivery Method Room Air Height 5 ft 2 in Weight 158 lb BMI 28.9 Body Fat % 39.1 Body Fat Mass 61.8 Fat Free Mass 96.2 Visceral Fat Rating 10.0 Body Water % 43.0 Body Water Mass 68.0 Muscle Mass/Score 91.2 Basal Metabolic Rate/Score 1,322 Intake Visit Reasons: OV PO LSG 12/20/2018 Allergies Penicillins [PENICILLINS] Adverse Reaction (Unknown, Verified 04/14/24 10:55) VOMITING Medication List - Last Reconciled 06/17/24 by FINN Martinez blood pressure monitor (Blood Pressure Kit) As directed budesonide-formoterol 80-4.5 mcg/actuation (Symbicort) 2 puffs inhalation Q12H cholecalciferol (vitamin D3) 2,000 units PO DAILY 90 days cyclobenzaprine 5 mg PO TID PRN cyclobenzaprine 50 mg PO BEDTIME diclofenac sodium 1% (Voltaren Arthritis Pain) 4 grams topical QID levalbuterol tartrate 45 mcg/actuation (Xopenex HFA) 2 inhalations inhalation Q6H levothyroxine 112 mcg PO QAM lidocaine 5% (Lidoderm) 1 patch topical DAILY sennosides-docusate sodium 8.6-50 mg (Senna Plus) 2 tab-caps (2 x 8.6-50 mg) PO BID simvastatin 20 mg PO BEDTIME 90 days HPI Comments Details: This?is a?63?yo female who is s/p LSG 12/20/2018. Weight gain of 3.6lbs since last OV in Jan 2024.? No complaints of nausea, emesis, abdominal pain or reflux, or constipation. Pt continues to have stress related to her neighbor. Present meal plan includes: Given at last visit- 2 protein shakes a day- she has used [employer] in the past. Plus one small meal of protein Could also try one shake, one yogurt, one bar, and one small meal of protein Exercise- walking for an hour 4x/week, also exercises at home- small weights Pt has excess skin of abdomen and arms that is bothersome. Excess skin of arms is uncomfortable with movement. Gets excess skin pinched when trying to put on her bra. Excess skin of abdomen is very heavy, uncomfortable. Has to wear supportive waistband to hold skin in place. Has to wash and dry frequently to prevent rashes. The weight of the excess skin in the front of her body is causing worsening back pain. [facility] Medical History (Updated 03/26/24 @ 09:49 by Tory Lyle MD) Neck pain Knee pain, left Bumps on skin Insomnia Cervical disc disorder with radiculopathy of mid-cervical region Fibromyalgia History of intussusception Carpal tunnel syndrome, right Peripheral vascular disease Insomnia Obstructive sleep apnea Hypothyroid Hypertension Hypercholesterolemia Varicose veins of lower extremity Arthritis Surgical History History of sleeve gastrectomy H/O oophorectomy History of tubal ligation History of colectomy Family History Father Medical history unknown Mother Colon cancer Social History (Updated 06/17/24 @ 11:47 by Fanny Avalos CMA) Household Members: None Housing: Apartment Alcohol intake: current Alcohol intake frequency: a few times a month Comment: allie 4x a week 2 shots Patient Tobacco Use Status: Former Tobacco user Tobacco use type: Cigarette Years Smoked: quit 17 years old e-Cigarette/Vaping Use: Never Used Second Hand Smoke Exposure: No Substance Use Type: Marijuana service: No Current occupational status: disabled Cognitive needs: No Hearing needs: No Vision needs: No Physical Exam Vital Signs: Last Vital Signs Temp 97.2 F 06/17/24 11:52 Pulse 81 06/17/24 11:52 BP 144/80 H 06/17/24 11:52 Pulse Ox 96 06/17/24 11:52 Oxygen Delivery Method Room Air 06/17/24 11:52 BMI result Body Mass Index 28.9 Assessment & Plan Assessment & Plan (1) History of sleeve gastrectomy: Comment: 2018 Code(s): Z90.3 - Acquired absence of stomach [part of] Category: Surgical (2) Overweight (BMI 25.0-29.9): Code(s): E66.3 - Overweight Category: Medical Plan Clotrimazole ointment ordered for excess skin issues. Pt would like to try to achieve goal weight prior to panniculectomy, 148lbs. Gave [employer] zayra info, pt will download and try aggressive plan. RTC 2 months. Medications: New clotrimazole 1% 1 appl topical BID 45 grams 3RF
[2024-06-17 11:52] VITALS: BP 144/80; PULSE 81; TEMP 36.2; O2SAT 96; BMI 28.9
--- OUTSIDE RECORDS SUMMARY | 2024-06-17 14:05 | XMS_ITS | Clinical Summary ---
Author Organization [facility] Address [address] [place] [address] Care Team Providers Care Vice [employer] Police Officer Name Role Phone Tory Lyle MD Primary Care Provider [phone] Social History Tobacco Use Types Packs/Day Years [...] age to complete this topic Care Teams Vice [employer] Police Officer Relationship Specialty Start Date End Date Tory Lyle MD [address] [place] [address] [address] [facility] [place] [address] PCP - General Internal Medicine 12/29/19
--- OUTSIDE RECORDS SUMMARY | 2024-06-17 14:05 | XMS_ITS | Clinical Summary ---
Author Organization [facility] it[facility] Address [address] [place] [address] Care Team Providers Care Income Tax Advisor Name Role Phone Tory Lyle MD Primary Care Provider [phone] Social History Tobacco Use Types Packs/Day Years [...] 1960 DTaP,Tdap,and Td Vaccines (1 - Tdap) 12/23/1979 Cervical Cancer Screening: P ap Smear 1981 [...] age to complete this topic Care Teams Income Tax Advisor Relationship Specialty Start Date End Date Tory Lyle MD [address] [place] [address] Dr [address] [facility] [place] [address] PCP - General Internal Medicine 12/29/19
== END 2024-06-17 12:26 | disposition home or self-care (01) ==
LOC: HO.HBS 11:25
PROVIDERS: PCP Internal Medicine; Visit Provider Physician Assistant Surgical
DX: E66.3 Overweight (principal); Z68.28 Body mass index [BMI] 28.0-28.9, adult; Z90.3 Acquired absence of stomach [part of]; Z98.84 Bariatric surgery status
CPT/HCPCS: 99214; G2211

== ENCOUNTER → 2024-06-17 11:25 | Outpatient (BNVA) | payer OTHER, SELFPAY | PROVIDERS: PCP Internal Medicine; Visit Provider Physician Assistant Surgical | DX: E66.3 Overweight (principal); Z90.3 Acquired absence of stomach [part of] | CPT/HCPCS: 99212 ==

== ENCOUNTER 2024-07-01 09:54 | Outpatient (AMB) | payer OTHER, SELFPAY ==
[2024-07-01 10:22] VITALS: BP 140/72; PULSE 79; O2SAT 98; BMI 30.2
--- NOTE | 2024-07-01 10:22 | A.OFFPC_ITS ---
Vital Signs 07/01/24 10:22 Height 5 ft 2 in Weight 165 lb BMI 30.2 BP 140/72 H Blood Pressure Location Lt brachial Position Sitting Pulse 79 Pulse Source Pulse Oximeter Pulse Oximetry (%) 98 Oxygen Delivery Method Room Air Intake Visit Reasons: asthma Allergies Penicillins [PENICILLINS] Adverse Reaction (Unknown, Verified 07/01/24 10:23) VOMITING Medication List - Last Reconciled 07/01/24 by Tory Lyle MD blood pressure monitor (Blood Pressure Kit) As directed budesonide-formoterol 80-4.5 mcg/actuation (Symbicort) 2 puffs inhalation Q12H cholecalciferol (vitamin D3) 2,000 units PO DAILY 90 days clotrimazole 1% 1 appl topical BID cyclobenzaprine 5 mg PO TID PRN cyclobenzaprine 50 mg PO BEDTIME diclofenac sodium 1% (Voltaren Arthritis Pain) 4 grams topical QID hydrochlorothiazide 12.5 mg PO DAILY levalbuterol tartrate 45 mcg/actuation (Xopenex HFA) 2 inhalations inhalation Q6H levothyroxine 112 mcg PO QAM lidocaine 5% (Lidoderm) 1 patch topical DAILY sennosides-docusate sodium 8.6-50 mg (Senna Plus) 2 tab-caps (2 x 8.6-50 mg) PO BID simvastatin 20 mg PO BEDTIME 90 days thiamine HCl (vitamin B1) 100 mg PO DAILY Tobacco use date assessed: 04/14/24 Dental Screening Dental Screen Date: 07/01/24 Did you have a dental visit in the last 12 months?: Yes Did you have a dental problem in the last 6 months where you did not have access to dental care?: No Was dental information given to patient?: Patient has dentist [facility] Medical History (Updated 07/01/24 @ 11:02 by Tory Lyle MD) Breast cancer screening by mammogram Neck pain Knee pain, left Bumps on skin Insomnia Cervical disc disorder with radiculopathy of mid-cervical region Fibromyalgia History of intussusception Carpal tunnel syndrome, right Peripheral vascular disease Insomnia Obstructive sleep apnea Hypothyroid Hypertension Hypercholesterolemia Varicose veins of lower extremity Arthritis Surgical History History of sleeve gastrectomy H/O oophorectomy History of tubal ligation History of colectomy Family History Father Medical history unknown Mother Colon cancer Social History (Updated 06/17/24 @ 11:47 by Fanny Avalos [facility]) Household Members: None Housing: Apartment Alcohol intake: current Alcohol intake frequency: a few times a month Comment: allie 4x a week 2 shots Patient Tobacco Use Status: Former Tobacco user Tobacco use type: Cigarette Years Smoked: quit 17 years old e-Cigarette/Vaping Use: Never Used Second Hand Smoke Exposure: No Substance Use Type: Marijuana service: No Current occupational status: disabled Cognitive needs: No Hearing needs: No Vision needs: No Questionnaire PHQ-9 Over the last 2 weeks, how often have you been bothered by any of the following problems? 1. Little interest or pleasure in doing things: nearly every day 2. Feeling down, depressed, or hopeless: nearly every day 3. Trouble falling or staying asleep, or sleeping too much: nearly every day 4. Feeling tired or having little energy: nearly every day 5. Poor appetite or overeating: nearly every day 6. Feeling bad about yourself - or that you are a failure or have let yourself or your family down: several days 7. Trouble concentrating on things, such as reading the newspaper or watching television: nearly every day 8. Moving or speaking so slowly that other people could have noticed. Or the opposite - being so fidgety or restless that you have been moving around a lot more than usual: not at all 9. Thoughts that you would be better off or of hurting yourself in some way: not at all Total score: 19 Depression Screening Interpretation: Positive Depression Screening Done: Yes 46834 - PHQ-9 Billing: Yes Source: Developed by Drs. Robert Cotton, Violeta Pineda, Radames Casas and colleagues, with an educational sarah from [employer]. Thrive Questionnaire Date Thrive assessed: 04/14/24 AUDIT C Alcohol Use Questionnaire (AUDIT-C) 1. How often do you have a drink containing alcohol?: 2-3 times a week 2. How many drinks containing alcohol do you have on a typical day when you are drinking?: 1 or 2 3. How often do you have six or more drinks on one occasion?: Never Total Score: 3 MARC-7 AMB Questionnaire MARC-7 Date MARC - 7 assessed: 04/14/24 Source: Developed by Drs. Robert Cotton, Violeta Pineda, Radames Casas and colleagues, with an educational sarah from [employer]. Physical exam (Primary Care) Vital Signs: Last Vital Signs Pulse 79 07/01/24 10:22 BP 140/72 H 07/01/24 10:22 Pulse Ox 98 07/01/24 10:22 Oxygen Delivery Method Room Air 07/01/24 10:22 BMI result Body Mass Index 30.2 Tobacco/Smoking Status: Tobacco use Status Tobacco use date assessed 04/14/24 07/01/24 10:24 Patient Tobacco Use Status Former Tobacco user 07/01/24 10:24 Tobacco use type Cigarette 07/01/24 10:24 e-Cigarette/Vaping Use Never Used 07/01/24 10:24 PHQ-9: PHQ-9 Score PHQ-9: Total score 19 07/01/24 11:03 Depression Screening Interpretation: Positive Thrive Assessment: Date of Thrive Assessment Date Thrive assessed 04/14/24 07/01/24 10:24 Const General: alert; No acute distress Eyes Conjunctivae: conjunctivae normal Resp Auscultation: clear to auscultation bilaterally Cardio Rate: regular rate Rhythm: regular rhythm GI Inspection: Yes normal to inspection Extrem General: Yes normal to inspection and No edema Coding Level of Care Code Est Pt Level 4 (43849) Complex EM visit Add On G2211 Diagnoses Asthma J45.909 Colon cancer screening Z12.11 Osteopenia of multiple sites M85.89 Osteopenia location: multiple sites Obesity (BMI 30.0-34.9) E66.9 History of sleeve gastrectomy Z90.3 Obstructive sleep apnea G47.33 Acquired hypothyroidism E03.9 Hypothyroidism type: acquired Essential hypertension I10 Hypertension type: essential hypertension Hypercholesterolemia E78.00 Additional Codes PHQ-9 - 08681 - PHQ-9 Billing: Yes ([id number]) Assessment & Plan Assessment & Plan (1) Asthma: Code(s): J45.909 - Unspecified asthma, uncomplicated Category: Medical Plan: Patient on Symbicort and Xopenex (2) Colon cancer screening: Code(s): Z12.11 - Encounter for screening for malignant neoplasm of colon Category: Medical Plan: Patient is reminded about colonoscopy (3) Osteopenia: Comment: October 2021 Code(s): M85.80 - Other specified disorders of bone density and structure, unspecified site Category: Medical Qualifiers: Osteopenia location: multiple sites Qualified Code(s): M85.89 - Other specified disorders of bone density and structure, multiple sites Plan: Patient is reminded about bone density (4) Obesity (BMI 30.0-34.9): Code(s): E66.9 - Obesity, unspecified Category: Medical Plan: Diet and exercise (5) History of sleeve gastrectomy: Comment: 2018 Code(s): Z90.3 - Acquired absence of stomach [part of] Category: Surgical Plan: Patient continues to follow-up with bariatric surgery (6) Obstructive sleep apnea: Comment: on the CPAP q night > 4 hours and benefits patient Code(s): G47.33 - Obstructive sleep apnea (adult) (pediatric) Category: Medical Plan: Continue to use the CPAP more than 4 hours a night and benefits from the (7) Hypothyroid: Code(s): E03.9 - Hypothyroidism, unspecified Category: Medical Qualifiers: Hypothyroidism type: acquired Qualified Code(s): E03.9 - Hypothyroidism, unspecified Plan: Noted TSH to be low on thyroid medication advised to repeat testing before kirby ging dose (8) Hypertension: Code(s): I10 - Essential (primary) hypertension Category: Medical Qualifiers: Hypertension type: essential hypertension Qualified Code(s): I10 - Essential (primary) hypertension Plan: Continue with blood pressure medication. Decrease salt intake advised to monitor for now (9) Hypercholesterolemia: Code(s): E78.00 - Pure hypercholesterolemia, unspecified Category: Medical Plan: Avoid fried foods, chicken skin, eggs, butter margarine, pastries and meat. Be it pork or beef they have a lot of cholesterol on simvastatin 20 mg at bedtime Plan History of Present Illness The patient is a 63-year-old female presenting for follow-up of her chronic medical conditions, which include essential hypertension, hypercholesterolemia, hypothyroidism, obstructive sleep apnea, generalized anxiety disorder, asthma, and obesity. She notes a recent 7-pound weight gain and reports adherence to her CPAP therapy with good compliance and benefit. This patient underwent sleeve gastrectomy in 2019 and has a history of controlled thyroid issues, managed with levothyroxine, although recent labs indicate a low TSH level. She reports normal blood parameters from recent tests, aside from mild leukopenia. Her LDL and HDL cholesterol levels are within target ranges suggesting adequate management of her hypercholesterolemia. The patient denies any physician-ordered cessation of vitamin B1 supplementation and suspects a miscommunication at the pharmacy. The patient describes increased home blood pressure readings and is concerned about persistent dust in her environment exacerbating asthma symptoms. She is aware of upcoming preventive screenings, including her mammogram and bone density tests. Health Maintenance - Mammogram due October 2023. - Bone density initially due October 2021. - Advised monitoring diet and exercise due to obesity. - Recommendations for regular blood pressure self-monitoring at home. Social History - Patient resides in a [place] environment and is concerned about its influence on her asthma. - Daughter is involved in her health management. - Reports high caffeine intake, typically consuming 5 cups of espresso per day. Review of Systems - Respiratory: Reports breathing difficulties related to asthma and dust exposure. - Gastrointestinal: Denies significant issues post-sleeve gastrectomy. - Endocrine: Denies symptoms of hyper or hypothyroidism aside from the low TSH level. Physical Exam Results - Blood work (May): Normal blood count, mild leukopenia, normal electroly krystal, renal function, blood sugar, liver function, LDL cholesterol 84, HDL cholesterol 70, low TSH 0.16. - Previous colon test done in 2016. Plan To manage essential hypertension, I have prescribed a low dose of hydrochlorothiazide. Hypercholesterolemia management continues with simvastatin, given her advantageous LDL and HDL levels. Despite her low TSH levels, additional testing has been advised to assess appropriate levothyroxine dosing for her hypothyroidism. The patient should follow up on her bone density and mammography screenings. A reduction in caffeine intake and commitment to a low- sodium diet were recommended to support blood pressure control and weight management. Additionally, I encouraged her to seek air purification solutions to help mitigate asthma triggers at home. Patient was informed and verbally consented to the use of an ambient scribe for clinic note documentation during this visit. Discussion Notes During this visit, we discussed management options for her chronic conditions. I emphasized the importance of addressing her blood pressure through medication and lifestyle changes, including dietary adjustments and reduced caffeine intake. We reviewed her recent thyroid test results, advising re-evaluation to ensure her medication is appropriately dosed. I answered her concerns about the vitamin B1 discontinuation and advised consulting with her pharmacy. The patient agreed with the plan to manage her hypertension and was informed of the necessity to monitor her condition closely. She was reminded to follow up with her scheduled preventive screenings. We also discussed potential benefits of air filtration in her home to decrease asthma symptoms and the importance of hydration while taking diuretics. Patient Instructions - Take prescribed hydrochlorothiazide for hypertension. - Continue simvastatin at bedtime for hypercholesterolemia. - Schedule repeat thyroid test and possible adjust levothyroxine based on results. - Ensure bone density test and mammogram are completed as scheduled. - Maintain a low-salt diet and limit caffeine intake to 2 cups per day. - Stay hydrated, especially while taking diuretics. - Consult a medical supply store for air filtration solutions to mitigate asthma triggers. - Monitor blood pressure regularly at home and follow up in three months or sooner if needed. Orders: Orders XR DEXA axial skeleton Today M81.0 - Age-related osteoporosis without current pathological fracture, M85.89 - Other specified disorders of bone density and structure, multiple sites Thyroid Stimulating Hormone 2 Weeks E03.9 - Hypothyroidism, unspecified Free T4 (Free Thyroxine) 2 Weeks E03.9 - Hypothyroidism, unspecified Complete Blood Count Auto Diff 2 Weeks E03.9 - Hypothyroidism, unspecified Medications: New hydrochlorothiazide 12.5 mg PO DAILY 30 tabs 4RF I10 - Essential (primary) hypertension Refilled thiamine HCl (vitamin B1) 100 mg PO DAILY 90 tabs 3RF M85.89 - Other specified disorders of bone density and structure, multiple sites
== END 2024-07-01 11:20 | disposition home or self-care (01) ==
LOC: HO.HMCH 09:55
PROVIDERS: PCP Internal Medicine; Visit Provider Internal Medicine
DX: J45.909 Unspecified asthma, uncomplicated (principal); Z12.11 Encounter for screening for malignant neoplasm of colon; E66.9 Obesity, unspecified; Z68.30 Body mass index [BMI] 30.0-30.9, adult; M85.89 Other specified disorders of bone density and structure, multiple sites; Z90.3 Acquired absence of stomach [part of]; G47.33 Obstructive sleep apnea (adult) (pediatric); E03.9 Hypothyroidism, unspecified; I10 Essential (primary) hypertension; E78.00 Pure hypercholesterolemia, unspecified

== ENCOUNTER → 2024-07-01 09:54 | Outpatient (BNVA) | payer OTHER, SELFPAY | PROVIDERS: PCP Internal Medicine; Visit Provider Internal Medicine | DX: J45.909 Unspecified asthma, uncomplicated (principal); M85.89 Other specified disorders of bone density and structure, multiple sites; E66.9 Obesity, unspecified; Z90.3 Acquired absence of stomach [part of]; G47.33 Obstructive sleep apnea (adult) (pediatric); E03.9 Hypothyroidism, unspecified; E78.00 Pure hypercholesterolemia, unspecified; I10 Essential (primary) hypertension | CPT/HCPCS: 96127; 99212 ==

== ENCOUNTER 2024-07-15 10:33 | Outpatient (AMB) | payer OTHER, SELFPAY ==
--- NOTE | 2024-07-15 10:46 | A.OFFPC_ITS ---
Vital Signs 07/15/24 10:47 Height 5 ft 2 in Weight 165 lb 4 oz BMI 30.2 BP 130/80 Blood Pressure Location Lt brachial Position Sitting Pulse 78 Pulse Source Pulse Oximeter Temp 94.1 F L Temp Source Temporal Artery Scan Pulse Oximetry (%) 98 Oxygen Delivery Method Room Air Intake Visit Reasons: Hypertension Intake Note: Patient is here to follow up on HTN. Replenishment Buyer Required: No Cordage Sales Representative: Not Required per policy Accompanied by: Self / Same As Patient Allergies Penicillins [PENICILLINS] Adverse Reaction (Unknown, Verified 07/15/24 10:47) VOMITING Medication List - Last Reconciled 07/15/24 by Tory Lyle MD bisacodyl (Dulcolax (bisacodyl)) 20 mg (4 x 5 mg) PO ONCE 1 day blood pressure monitor (Blood Pressure Kit) As directed budesonide-formoterol 80-4.5 mcg/actuation (Symbicort) 2 puffs inhalation Q12H cholecalciferol (vitamin D3) 2,000 units PO DAILY 90 days clotrimazole 1% 1 appl topical BID cyclobenzaprine 5 mg PO TID PRN cyclobenzaprine 50 mg PO BEDTIME diclofenac sodium 1% (Voltaren Arthritis Pain) 4 grams topical QID hydrochlorothiazide 12.5 mg PO DAILY levalbuterol tartrate 45 mcg/actuation (Xopenex HFA) 2 inhalations inhalation Q6H levothyroxine 112 mcg PO QAM lidocaine 5% (Lidoderm) 1 patch topical DAILY polyethylene glycol 3350 (Miralax) 238 grams PO ONCE 1 day sennosides-docusate sodium 8.6-50 mg (Senna Plus) 2 tab-caps (2 x 8.6-50 mg) PO BID simvastatin 20 mg PO BEDTIME 90 days thiamine HCl (vitamin B1) 100 mg PO DAILY Tobacco use date assessed: 07/15/24 Dental Screening Dental Screen Date: 07/01/24 [facility] Medical History (Updated 07/01/24 @ 11:02 by Tory Lyle MD) Breast cancer screening by mammogram Neck pain Knee pain, left Bumps on skin Insomnia Cervical disc disorder with radiculopathy of mid-cervical region Fibromyalgia History of intussusception Carpal tunnel syndrome, right Peripheral vascular disease Insomnia Obstructive sleep apnea Hypothyroid Hypertension Hypercholesterolemia Varicose veins of lower extremity Arthritis Surgical History History of sleeve gastrectomy H/O oophorectomy History of tubal ligation History of colectomy Family History Father Medical history unknown Mother Colon cancer Social History Household Members: None Housing: Apartment Alcohol intake: current Alcohol intake frequency: a few times a month Comment: allie 4x a week 2 shots Patient Tobacco Use Status: Former Tobacco user Tobacco use type: Cigarette Years Smoked: quit 17 years old e-Cigarette/Vaping Use: Never Used Second Hand Smoke Exposure: Yes Substance Use Type: Marijuana service: No Current occupational status: disabled Cognitive needs: No Hearing needs: No Vision needs: No Questionnaire Thrive Questionnaire Date Thrive assessed: 04/14/24 AUDIT C Alcohol Use Questionnaire (AUDIT-C) 2. How many drinks containing alcohol do you have on a typical day when you are drinking?: 3 or 4 3. How often do you have six or more drinks on one occasion?: Never Total Score: 1 MARC-7 AMB Questionnaire MARC-7 Date MARC - 7 assessed: 04/14/24 Source: Developed by Drs. Robert Cotton, Violeta Pineda, Radames Casas and colleagues, with an educational sarah from [employer]. Physical exam (Primary Care) Vital Signs: Last Vital Signs Temp 94.1 F L 07/15/24 10:47 Pulse 78 07/15/24 10:47 BP 130/80 07/15/24 10:47 Pulse Ox 98 07/15/24 10:47 Oxygen Delivery Method Room Air 07/15/24 10:47 BMI result Body Mass Index 30.2 Tobacco/Smoking Status: Tobacco use Status Tobacco use date assessed 07/15/24 07/15/24 10:52 Patient Tobacco Use Status Former Tobacco user 07/15/24 10:52 Tobacco use type Cigarette 07/15/24 10:52 e-Cigarette/Vaping Use Never Used 07/15/24 10:52 Thrive Assessment: Date of Thrive Assessment Date Thrive assessed 01/06/25 04/08/25 10:52 Const General: alert; No acute distress Eyes Conjunctivae: conjunctivae normal Resp Auscultation: clear to auscultation bilaterally Cardio Rate: regular rate Rhythm: regular rhythm GI Inspection: Yes normal to inspection Extrem General: Yes normal to inspection and No edema Coding Level of Care Code Est Pt Level 4 (19640) Complex EM visit Add On G2211 Diagnoses Acquired hypothyroidism E03.9 Hypothyroidism type: acquired Essential hypertension I10 Hypertension type: essential hypertension Hypercholesterolemia E78.00 Obstructive sleep apnea G47.33 Obesity (BMI 30.0-34.9) E66.9 Assessment & Plan Assessment & Plan (1) Hypothyroid: Code(s): E03.9 - Hypothyroidism, unspecified Category: Medical Qualifiers: Hypothyroidism type: acquired Qualified Code(s): E03.9 - Hypothyroidism, unspecified Plan: Blood work in May showing a low TSH patient is advised to repeat T thyroid test (2) Hypertension: Code(s): I10 - Essential (primary) hypertension Category: Medical Qualifiers: Hypertension type: essential hypertension Qualified Code(s): I10 - Essential (primary) hypertension Plan: Continue with blood pressure medication. Decrease salt intake and exercise presently on hydrochlorothiazide only advised to keep well hydrated (3) Hypercholesterolemia: Code(s): E78.00 - Pure hypercholesterolemia, unspecified Category: Medical Plan: Avoid fried foods, chicken skin, eggs, butter margarine, pastries and meat. Be it pork or beef they have a lot of cholesterol LDL goal of less than 130 and triglyceride of less than 150 on simvastatin 20 mg at bedtime (4) Obstructive sleep apnea: Comment: on the CPAP q night > 4 hours and benefits patient Code(s): G47.33 - Obstructive sleep apnea (adult) (pediatric) Category: Medical Plan: Continue to use the CPAP more than 4 hours a night and benefits from (5) Obesity (BMI 30.0-34.9): Code(s): E66.9 - Obesity, unspecified Category: Medical Plan: Diet and exercise Plan History of Present Illness The patient is a 63-year-old female presenting with chronic disease management and health maintenance needs. Her medical history includes obesity, managed with a sleeve gastrectomy in 2019, essential hypertension treated with hydrochlorothiazide, and hypothyroidism with low TSH noted in recent blood work. She is also addressing hypercholesterolemia with an LDL goal less than 130 and triglycerides less than 150. Obstructive sleep apnea is managed effectively using a CPAP machine, which she uses nightly and reports benefits in terms of respiratory function and energy levels. The patient experiences chronic low back pain and generalized anxiety disorder, both contributing to her ongoing medical management requirements. She has a history of asthma for which she uses albuterol and Symbicort. The patient has scheduled a bone density test on August 06, 2024, and a colonoscopy on August 2024, as part of ongoing health maintenance. She reported mild leukopenia but normal electrolytes, renal function, blood sugar, and liver function in her last blood work conducted in May 2024. The patient has expressed concerns over dust in her home environment impacting her clean atmosphere but acknowledges the benefits of her CPAP use. Health Maintenance - Scheduled bone density test for August 06, 2024 - Scheduled colonoscopy for August 2024 - Regular CPAP usage for obstructive sleep apnea - Blood pressure management with hydrochlorothiazide - Cholesterol management with simvastatin targeting LDL <130 and triglycerides <150 - Monitoring of thyroid function following low TSH findings - Last blood work in May 2024 showing presence of mild leukopenia, otherwise normal parameters Social History - Reports frequent cleaning of her home environment due to dust presence - Uses CPAP machine more than 4 hours per night for sleep apnea - Diet and exercise regimen ongoing as part of health maintenance - Discusses arrangement of home environment to improve mental wellbeing and activity levels Review of Systems - Respiratory: Denies any current respiratory symptoms other than those managed by CPAP - Musculoskeletal: Reports chronic low back pain - Cardiovascular: Denies any specific cardiovascular symptoms - Psychiatric: Reports generalized anxiety disorder - Endocrine: Denies specific endocrine symptoms beyond managed conditions Physical Exam Results - Labs: May 2024 blood work indicated mild leukopenia, normal electrolytes, renal function, blood sugar, liver function; Low TSH - Tests: Scheduled bone density test for August 06, 2024, and colonoscopy for August 2024 Plan I recommend continued management of the patient's chronic conditions with specific treatments, including hydrochlorothiazide for hypertension and simvastatin for hypercholesterolemia. Emphasizing hydration is crucial for her blood pressure control. I advise using her CPAP for obstructive sleep apnea and encourage reassessing thyroid function due to low TSH results from May. She is scheduled for a bone density test and colonoscopy as part of her health maintenance. I have renewed her asthma medications and suggested she contacts her CPAP company regarding a filter. I have addressed her anxiety and back pain through ongoing monitoring and management support. These interventions ensure comprehensive care and address her health needs with informed and shared decision-making. Patient was informed and verbally consented to the use of an ambient scribe for clinic note documentation during this visit. Discussion Notes We discussed her ongoing conditions, including hypertension, hypothyroidism, hypercholesterolemia, obstructive sleep apnea, generalized anxiety disorder, chronic low back pain, and asthma. I reiterated the importance of her CPAP usage, emphasizing the improvement in her energy levels and respiratory health. I advised her to contact her CPAP supplier for dust issues and clarified I would provide any necessary prescriptions. We reviewed management strategies for her stressors and chronic back pain, emphasizing ongoing monitoring. Updates on the upcoming colonoscopy and bone density test were provided, and I reiterated the need for blood tests to follow up on her thyroid function due to low TSH. The patient understands the plan and agrees to proceed with the outlined management strategies. Patient Instructions - Continue using hydrochlorothiazide and ensure adequate hydration - Take simvastatin 20 mg at bedtime for cholesterol management - Use CPAP machine nightly for at least 4 hours - Follow up with thyroid testing before next visit - Attend scheduled bone density test on August 06, 2024 - Attend scheduled colonoscopy in August 2024 - Contact CPAP company for a filter to address dust concerns - Use asthma inhalers as prescribed - Maintain diet and exercise regimen for ongoing health benefits - Reach out with any concerns or questions regarding treatments Medications: Refilled levalbuterol tartrate 45 mcg/actuation (Xopenex HFA) 2 inhalations inhalation Q6H 15 grams 0RF budesonide-formoterol 80-4.5 mcg/actuation (Symbicort) 2 puffs inhalation Q12H 10.2 grams 12RF J45.909 - Unspecified asthma, uncomplicated
--- NOTE | 2024-07-15 10:46 | MHC.OFFVIS ---
Intake Visit Reasons: Hypertension Allergies Penicillins [PENICILLINS] Adverse Reaction (Unknown, Verified 07/01/24 10:23) VOMITING PFSH Medical History (Updated 07/01/24 @ 11:02 by Tory Lyle MD) Breast cancer screening by mammogram Neck pain Knee pain, left Bumps on skin Insomnia Cervical disc disorder with radiculopathy of mid-cervical region Fibromyalgia History of intussusception Carpal tunnel syndrome, right Peripheral vascular disease Insomnia Obstructive sleep apnea Hypothyroid Hypertension Hypercholesterolemia Varicose veins of lower extremity Arthritis Surgical History History of sleeve gastrectomy H/O oophorectomy History of tubal ligation History of colectomy Family History Father Medical history unknown Mother Colon cancer Social History (Updated 06/17/24 @ 11:47 by Fanny Avalos CMA) Household Members: None Housing: Apartment Alcohol intake: current Alcohol intake frequency: a few times a month Comment: allie 4x a week 2 shots Patient Tobacco Use Status: Former Tobacco user Tobacco use type: Cigarette Years Smoked: quit 17 years old e-Cigarette/Vaping Use: Never Used Second Hand Smoke Exposure: No Substance Use Type: Marijuana service: No Current occupational status: disabled Cognitive needs: No Hearing needs: No Vision needs: No Coding
[2024-07-15 10:47] VITALS: BP 130/80; PULSE 78; TEMP 34.5; O2SAT 98; BMI 30.2
--- OUTSIDE RECORDS SUMMARY | 2024-07-15 12:36 | XMS_ITS | Clinical Summary ---
Author Organization [facility] Address [address] [place] [address] Care Team Providers Care Sales Officer Name Role Phone Tory Lyle MD Primary Care Provider [phone] Social History Tobacco Use Types Packs/Day Years [...] age to complete this topic Care Teams Sales Officer Relationship Specialty Start Date End Date Tory Lyle MD [address] [place] [address] [address] [facility] [place] [address] PCP - General Internal Medicine 12/29/19
--- OUTSIDE RECORDS SUMMARY | 2024-07-15 12:36 | XMS_ITS | Clinical Summary ---
Author Organization [facility] [address] ity Address [address] [place] [address] Care Team Providers Care Angle Shear Operator Name Role Phone Tory Lyle MD Primary Care Provider [phone] Social History Tobacco Use Types Packs/Day Years [...] 2023 Influenza Vaccine (#1) 2023 RSV Immunization Adult Patie nts (1 - 1-dose 75+ series) 12/23/2035 HIB [...] age to complete this topic Meningococcal B Vaccine Aged Out No l onger eligible based on patient's age to complete [...] age to complete this topic Care Teams Angle Shear Operator Relationship Specialty Start Date End Date Tory Lyle MD [address] [place] [address] [address] [facility] [place] [address] PCP - General Internal Medicine 12/29/19
== END 2024-07-15 11:09 | disposition home or self-care (01) ==
LOC: HO.HMCH 10:33
PROVIDERS: PCP Internal Medicine; Visit Provider Internal Medicine
DX: E03.9 Hypothyroidism, unspecified (principal); E66.9 Obesity, unspecified; Z68.30 Body mass index [BMI] 30.0-30.9, adult; I10 Essential (primary) hypertension; E78.00 Pure hypercholesterolemia, unspecified; G47.33 Obstructive sleep apnea (adult) (pediatric)

== ENCOUNTER → 2024-07-15 10:33 | Outpatient (BNVA) | payer OTHER, SELFPAY | PROVIDERS: PCP Internal Medicine; Visit Provider Internal Medicine | DX: I10 Essential (primary) hypertension (principal); E03.9 Hypothyroidism, unspecified; E78.00 Pure hypercholesterolemia, unspecified; G47.33 Obstructive sleep apnea (adult) (pediatric); E66.9 Obesity, unspecified; J45.909 Unspecified asthma, uncomplicated; Z68.30 Body mass index [BMI] 30.0-30.9, adult | CPT/HCPCS: 99212 ==

== ENCOUNTER 2024-08-01 12:30 | Outpatient (REF) | payer OTHER, SELFPAY ==
--- OUTSIDE RECORDS SUMMARY | 2024-08-01 13:37 | XMS_ITS | Clinical Summary ---
Author Organization [facility] ity Address [address] [place] [address] Care Team Providers Care Feedmobile Driver Name Role Phone Tory Lyle MD Primary Care Provider [phone] Social History Tobacco Use Types Packs/Day Years [...] age to complete this topic Care Teams Feedmobile Driver Relationship Specialty Start Date End Date Tory Lyle MD [address] [place] [address] [address] [facility] [place] [address] PCP - General Internal Medicine 12/29/19
--- OUTSIDE RECORDS SUMMARY | 2024-08-01 13:37 | XMS_ITS | Clinical Summary ---
Author Organization [facility] Address [address] [place] [address] Care Team Providers Care Industrial Order Clerk Name Role Phone Tory Lyle MD Primary Care Provider [phone] Social History Tobacco Use Types Packs/Day Years [...] age to complete this topic Care Teams Industrial Order Clerk Relationship Specialty Start Date End Date Tory Lyle MD [address] [place] [address] [address] [facility] [place] [address] PCP - General Internal Medicine 12/29/19
[2024-08-08 12:50] LABS: HPV Genotype 16 Negative (Negative); HPV Genotype 18 Negative (Negative); HPV High Risk Negative (Negative)
== END 2024-08-01 12:31 | disposition home or self-care (01) ==
LOC: HO.LNP 12:30
PROVIDERS: PCP Internal Medicine; Visit Provider Obstetrics & Gynecology
DX: Z01.419 Encounter for gynecological examination (general) (routine) without abnormal findings (principal); Z11.51 Encounter for screening for human papillomavirus (HPV)
CPT/HCPCS: 87626; 88175; 99396; 99459

== ENCOUNTER 2024-08-01 12:30 | Outpatient (AMB) | payer OTHER, SELFPAY ==
[2024-08-01 12:35] VITALS: BP 130/86; BMI 30.2
--- NOTE | 2024-08-01 12:35 | A.OFFVIS_ITS ---
Vital Signs 08/01/24 12:35 Height 5 ft 2 in Weight 165 lb BMI 30.2 BP 130/86 Intake Visit Reasons: annual Occupational Health Specialist Required: No Information Interpreted: non-clinical & clinical Winter Intern: Winter Intern Present (Marianne ANAYA) Accompanied by: Self / Same As Patient Allergies Penicillins [PENICILLINS] Adverse Reaction (Unknown, Verified 08/01/24 12:39) VOMITING Post menopausal: Yes HPI Comments Details: Presenting for annual exam. No complaints. Last Pap/HPV was many years ago Last Mammogram was in 10/30 was BI-RADS 1 No previous screen Colonoscopy, the patient is scheduled within few weeks for a screening colonoscopy [facility] Medical History Breast cancer screening by mammogram Neck pain Knee pain, left Bumps on skin Insomnia Cervical disc disorder with radiculopathy of mid-cervical region Fibromyalgia History of intussusception Carpal tunnel syndrome, right Peripheral vascular disease Insomnia Obstructive sleep apnea Hypothyroid Hypertension Hypercholesterolemia Varicose veins of lower extremity Arthritis Surgical History History of sleeve gastrectomy H/O oophorectomy History of tubal ligation History of colectomy Family History Father Medical history unknown Mother Colon cancer Social History Household Members: None Housing: Apartment Alcohol intake: current Alcohol intake frequency: a few times a month Comment: allie 4x a week 2 shots Patient Tobacco Use Status: Former Tobacco user Tobacco use type: Cigarette Years Smoked: quit 17 years old e-Cigarette/Vaping Use: Never Used Second Hand Smoke Exposure: Yes Substance Use Type: Marijuana service: No Current occupational status: disabled Cognitive needs: No Hearing needs: No Vision needs: No Female Reproductive History Menstrual control method: permanent sterilization Date of Mammogram: 10/30/23 Review of Systems Const All systems reviewed & are unremarkable except as noted in HPI and below Card Reports as per HPI Resp Reports as per HPI GI Reports as per HPI and Reports no additional complaints Reports as per HPI Physical Exam Vital Signs: Last Vital Signs BP 130/86 08/01/24 12:35 BMI result Body Mass Index 30.2 Const General: cooperative, healthy appearing and comfortable Chest Chest palpation & inspection: normal inspection of the chest and normal palpation of entire chest wall Breast/axilla inspection: normal inspection of the breasts and normal inspection of the axillae Breast/axilla palpation: normal palpation of the breasts, normal palpation of the axillae and no axillary lymphadenopathy Resp Effort & Inspection: normal respiratory effort Auscultation: clear to auscultation bilaterally Percussion: percussion normal Cardio Palpation: normal PMI Rate: regular rate Rhythm: regular rhythm Heart sounds: no murmurs and no rubs Peripheral pulses: Peripheral pulses 2+ throughout GI Inspection: Yes normal to inspection Palpation (GI): Soft to palpation, nontender, no guarding, not rigid and No hepatosplenomegaly present Percussion: Yes normal to percussion Auscultation: normal bowel sounds Rectal Exam - Female: deferred General: Yes bladder normal to palpation External Female Exam: No lesion Speculum Exam - Vagina: normal appearance of the vagina, normal palpation, normal vaginal discharge and not erythematous Speculum Exam - Cervix: normal appearance of the cervix and normal palpation Bimanual exam- vagina & uterus: normal bimanual exam, normal palpation, uterine size normal, bladder normal to palpation, consistency normal and normal palpation Bimanual Exam- Adnexa, other: normal adnexae, no masses and no tenderness Assessment & Plan Assessment & Plan (1) Well woman exam: Code(s): Z01.419 - Encounter for gynecological examination (general) (routine) without abnormal findings Category: Medical Plan: Co testing done. Counseled the patient about the recommended dietary allowance of 1200 mg of Calcium & 600 IU of vitamin D. Instructions given to patient to schedule next screening Mammogram in 10/31. The patient is scheduled within few weeks for screening colonoscopy . The patient was instructed to perform monthly self-breast exams and schedule annual exam in a year. All questions answered and the patient verbalized understanding. Coding Level of Care Code New Pt Prev Care 40-64y(54371) Diagnoses Well woman exam Z01.419
--- OUTSIDE RECORDS SUMMARY | 2024-08-01 13:11 | XMS_ITS | Clinical Summary ---
Author Organization [facility] ity Address [address] [place] [address] Care Team Providers Care Hoop Maker Name Role Phone Tory Lyle MD Primary Care Provider [phone] Social History Tobacco Use Types Packs/Day Years [...] - 2023-2 5 season) 2023 Influenza Vaccine (Season Ended) 2024 RSV Immunization Adult Patie nts (1 - [...] age to complete this topic Care Teams Hoop Maker Relationship Specialty Start Date End Date Tory Lyle MD [address] [place] [address] [address] [facility] [place] [address] PCP - General Internal Medicine 12/29/19
--- OUTSIDE RECORDS SUMMARY | 2024-08-01 13:11 | XMS_ITS | Clinical Summary ---
Author Organization [facility] Address [address] [place] [address] Care Team Providers Care Investment Officer Name Role Phone Tory Lyle MD Primary Care Provider [phone] Social History Tobacco Use Types Packs/Day Years [...] age to complete this topic Care Teams Investment Officer Relationship Specialty Start Date End Date Tory Lyle MD [address] [place] [address] [address] [facility] [place] [address] PCP - General Internal Medicine 12/29/19
== END 2024-08-01 12:58 | disposition home or self-care (01) ==
LOC: HO.HWS 12:30
PROVIDERS: PCP Internal Medicine; Visit Provider Obstetrics & Gynecology
DX: Z01.419 Encounter for gynecological examination (general) (routine) without abnormal findings (principal)
CPT/HCPCS: 99396; 99459

== ENCOUNTER 2024-09-10 14:12 | Outpatient (AMB) | payer OTHER, SELFPAY ==
--- OUTSIDE RECORDS SUMMARY | 2024-09-10 14:14 | XMS_ITS | Clinical Summary ---
Author Organization [facility] ity Address [address] [place] [address] Care Team Providers Care Electronic Science Teacher Name Role Phone Tory Lyle MD Primary Care Provider [phone] Social History Tobacco Use Types Packs/Day Years [...] age to complete this topic Care Teams Electronic Science Teacher Relationship Specialty Start Date End Date Tory Lyle MD [address] [place] [address] [address] [facility] [place] [address] PCP - General Internal Medicine 12/29/19
--- NOTE | 2024-09-10 14:15 | A.OFFPC_ITS ---
Intake Visit Reasons: Rash Certified Alcohol Drug Counselor Required: No Accompanied by: Self / Same As Patient Allergies Penicillins [PENICILLINS] Adverse Reaction (Unknown, Verified 09/10/24 14:16) VOMITING Tobacco use date assessed: 09/10/24 Dental Screening Dental Screen Date: 09/10/24 HPI Rash HPI Details rash 2 weeks, cleaning yard pruritus rash used cortisone 10, on under breast gluteal area, abdomen PFSH Medical History Breast cancer screening by mammogram Neck pain Knee pain, left Bumps on skin Insomnia Cervical disc disorder with radiculopathy of mid-cervical region Fibromyalgia History of intussusception Carpal tunnel syndrome, right Peripheral vascular disease Insomnia Obstructive sleep apnea Hypothyroid Hypertension Hypercholesterolemia Varicose veins of lower extremity Arthritis Surgical History History of sleeve gastrectomy H/O oophorectomy History of tubal ligation History of colectomy Family History Father Medical history unknown Mother Colon cancer Social History Household Members: None Housing: Apartment Alcohol intake: current Alcohol intake frequency: a few times a month Comment: allie 4x a week 2 shots Patient Tobacco Use Status: Former Tobacco user Tobacco use type: Cigarette Years Smoked: quit 17 years old e-Cigarette/Vaping Use: Never Used Second Hand Smoke Exposure: Yes Substance Use Type: Marijuana service: No Current occupational status: disabled Cognitive needs: No Hearing needs: No Vision needs: No Questionnaire PHQ-9 Over the last 2 weeks, how often have you been bothered by any of the following problems? 1. Little interest or pleasure in doing things: nearly every day 2. Feeling down, depressed, or hopeless: nearly every day 3. Trouble falling or staying asleep, or sleeping too much: nearly every day 4. Feeling tired or having little energy: nearly every day 5. Poor appetite or overeating: nearly every day 6. Feeling bad about yourself - or that you are a failure or have let yourself or your family down: several days 7. Trouble concentrating on things, such as reading the newspaper or watching television: nearly every day 8. Moving or speaking so slowly that other people could have noticed. Or the opposite - being so fidgety or restless that you have been moving around a lot more than usual: not at all 9. Thoughts that you would be better off or of hurting yourself in some way: not at all Total score: 19 Depression Screening Interpretation: Positive Depression Screening Done: Yes 24274 - PHQ-9 Billing: Yes Source: Developed by Drs. Robert Cotton, Violeta Pineda, Radames Casas and colleagues, with an educational sarah from [employer]. Thrive Questionnaire Date Thrive assessed: 09/10/24 I am a: Patient What is your living situation today?: I have a steady place to live Within the past 12 months, did the food you bought not last and you didn't have the money to get more?: Never true Within the past 12 months, did you worry whether your food would run out before you got money to buy more?: Never true Do you have trouble paying for medicines?: No Do you have trouble getting transportation to medical appointments?: No Do you have trouble paying your heating and electricity bill?: No Do you have trouble taking care of your child, family member or friend?: No Do you have trouble with day-to-day activities such as bathing, preparing meals, shopping, managing finances, etc.?: No Are you currently unemployed and looking for a job?: No Are you interested in more education?: No Please select the resources that you would like help with: None Currently or been in a relationship where the following occur: No concerns reported THRIVE Score: 0 AUDIT C Alcohol Use Questionnaire (AUDIT-C) 1. How often do you have a drink containing alcohol?: Monthly or less 2. How many drinks containing alcohol do you have on a typical day when you are drinking?: 3 or 4 3. How often do you have six or more drinks on one occasion?: Never Total Score: 2 MARC-7 AMB Questionnaire MARC-7 Date MARC - 7 assessed: 09/10/24 Feeling nervous, anxious, or on edge: 0 = Not at all Not being able to stop or control worryin = Not at all Worrying too much about different things: 0 = Not at all Trouble relaxin = Not at all Being so restless that it is hard to sit still: 0 = Not at all Becoming easily annoyed or irritable: 0 = Not at all Feeling afraid as if something awful might happen: 0 = Not at all Total MARC-7 score (0-4 normal; 5-9 mild; 10-14 moderate; 15-21 severe): 0 Source: Developed by Drs. Robert Cotton, Violeta Pineda, Radames Casas and colleagues, with an educational sarah from [employer]. Physical exam (Primary Care) Tobacco/Smoking Status: Tobacco use Status Tobacco use date assessed 09/10/24 09/10/24 14:18 Patient Tobacco Use Status Former Tobacco user 09/10/24 14:18 Tobacco use type Cigarette 09/10/24 14:18 e-Cigarette/Vaping Use Never Used 09/10/24 14:18 PHQ-9: PHQ-9 Score PHQ-9: Total score 19 09/10/24 14:49 Depression Screening Interpretation: Positive Thrive Assessment: Date of Thrive Assessment Date Thrive assessed 09/10/24 09/10/24 14:18 Currently or been in a relationship where the following occur: No concerns reported Telehealth Telehealth Telehealth Platform: Telephone Location of provider rendering services: practice address Location of patient: address on file Patient Identification confirmed using: Name, : Yes Telehealth method: video (Android) Patient verbally consented to treatment: Yes Patient verbally consented to billing insurance company: Yes Patient informed of any privacy concerns related to visit: Yes Minutes spent on Phone/Video with Pt.: 15 Coding Level of Care Code Tele Est Pt Level 3 (38598) Diagnoses Contact dermatitis, allergic L23.9 Additional Codes PHQ-9 - 30150 - PHQ-9 Billing: Yes ([id number]) Assessment & Plan Assessment & Plan (1) Contact dermatitis, allergic: Code(s): L23.9 - Allergic contact dermatitis, unspecified cause Category: Medical Plan History of Present Illness The patient is a 63-year-old female presenting with a rash and pruritus. Sympt oms began approximately two and a half weeks ago following exposure to certain branches while assisting a friend, leading to suspicion of allergic contact dermatitis. The rash initially manifested around the stomach and spread to the buttocks, as well as beneath and between the breasts. It is intensely itchy and has affected the patient?s ability to wear bras due to discomfort. Despite the use of topical hydrocortisone 10%, the rash has persisted and expanded in coverage. The patient has a medical history of obesity, hypertension, hypercholesterolemia, obstructive sleep apnea, hypothyroidism, generalized anxiety disorder, and lumbar degenerative disc disease. Current medications include levothyroxine, simvastatin, and hydrochlorothiazide. The patient is particularly distressed by the persistent itch and is seeking more effective treatment. Review of Systems - Integumentary: Reports rash and severe itching. - Cardiovascular: Denies any new symptoms. - Respiratory: Denies shortness of breath or cough. - Gastrointestinal: Denies nausea or abdominal pain. - Neurological: Denies any new neurological symptoms. - Psychological: Denies new anxiety or depressive symptoms but has a history of generalized anxiety disorder. Plan For the allergic contact dermatitis, I prescribed an oral corticosteroid regimen to manage the rash and alleviate itching, given the spread and severity. The patient will taper the dosage over eight days. Additionally, I provided a prescription for Zyrtec to control allergic symptoms, advising caution regarding potential drowsiness. The patient received instructions to wash all potentially contaminated clothing and bedding thoroughly. If symptoms persist or worsen, she was directed to contact us for further evaluation, considering a possible fungal component that may require antifungal treatment. Patient was informed and verbally consented to the use of an ambient scribe for clinic note documentation during this visit. Discussion Notes In our detailed conversation, I explained the management plan for suspected allergic contact dermatitis, particularly focusing on oral corticosteroid therapy due to the extensive and persistent nature of the rash. The rationale for using Zyrtec as an antihistamine was also discussed, highlighting its benefit for allergy symptoms while advising on possible sedative effects. We covered the importance of washing clothing and bedding and the risk of recurrent exposure to allergens. I underscored the need for vigilance regarding potential worsening or new symptoms that might suggest a fungal element, noting instructions for follow-up if conditions worsen. Moreover, the patient understood the treatment regimen and agreed to report back should the rash not improve. Patient Instructions - Take the prescribed oral steroids as directed: four tablets on day one, reducing the dose daily as discussed. - Take Zyrtec once daily. Avoid driving initially until you know how it affects you. - Wash all clothing and bedding made contact with the rash. - Contact us promptly if the rash does not improve or if you notice new symptoms. - Avoid potential allergen exposure or activities leading to rash irritation. - Report back to the office if the rash expands or if associated discomfort increases. Medications: New prednisone 4 tabs QD x 2 days then 3 tabs QD x 2 days then 2 tabs Qd x 2 days then 1 tab QD x 2 days PO daily; 20 tabs 0RF J45.909 - Unspecified asthma, uncomplicated, L23.9 - Allergic contact dermatitis, unspecified cause cetirizine 10 mg PO DAILY PRN 30 tabs 0RF allergy symptoms L23.9 - Allergic contact dermatitis, unspecified cause
== END 2024-09-10 16:40 | disposition home or self-care (01) ==
LOC: HO.HMCH 14:12
PROVIDERS: PCP Internal Medicine; Visit Provider Internal Medicine
DX: L23.9 Allergic contact dermatitis, unspecified cause (principal)

== ENCOUNTER → 2024-09-10 14:12 | Outpatient (BNVA) | payer OTHER, SELFPAY | PROVIDERS: PCP Internal Medicine; Visit Provider Internal Medicine | DX: M79.7 Fibromyalgia (principal); L23.9 Allergic contact dermatitis, unspecified cause | CPT/HCPCS: 96127 ==

== ENCOUNTER 2024-10-01 08:01 | Outpatient (REF) | payer OTHER, SELFPAY ==
--- NOTE | ~2024-10-01 | MM_ITS ---
EXAMINATION: DXA BONE DENSITY AXIAL HISTORY: M81.0 - Age-related osteoporosis without current pathological fracture TECHNIQUE: Cold Crate Dual energy absorptiometry (DEXA) of the lumbar spine, total left hip, and femoral neck was performed. COMPARISON: Comparison is made with the prior examination dated 05/30/2016. FINDINGS: The bone mineral density of the lumbar spine is 1.140, corresponding to a T-score of -0.3, and a Z-score of 0.9. This is indicative of normal bone mineral density. This represents a BMD change of -2.0% compared to the prior exam. This is not statistically significant. The bone mineral density of the left total hip is 0.939, corresponding to a T-score of -0.5, and a Z-score of 0.4. This is indicative of normal bone mineral density. This represents a BMD change of -12.2% compared to the prior exam. This is statistically significant. The bone mineral density of the left femoral neck is 0.850, corresponding to a T-score of -1.4, and a Z-score of -0.1. This is indicative of osteopenia. This represents a BMD change of -12.9% compared to the prior exam. FRACTURE RISK: The FRAX index suggests a ten year probability of major osteoporotic fracture of 4.6%, and of hip fracture 0.4%. MM/XR DEXA axial skeleton IMPRESSION: Based on bone mineral density, and according to World Health Organization (WHO) criteria, the diagnosis is consistent with osteopenia. All bone density values are in grams per centimeter squared (g/cm2). Statistically, 68% of repeat scans fall within 1 SD (+/- 0.010 g/cm2 for AP spine L1-L4) and 1 SD (+/- 0.012 g/cm2 for femur total) FRAX is a trademark of the [employer]'s [employer], a World Health Organization (WHO) Collaborating Center. Electronically signed by: Robert Cruz MD 10/01/2024 09:23 AM EDT
--- OUTSIDE RECORDS SUMMARY | 2024-10-01 08:09 | XMS_ITS | Clinical Summary ---
Author Organization [facility] ity Address [address] [place] [address] Care Team Providers Care Electrical Power Engineer Name Role Phone Tory Lyle MD Primary Care Provider Social History Tobacco Use Types Packs/Day Years [...] age to complete this topic Care Teams Electrical Power Engineer Relationship Specialty Start Date End Date Tory Lyle MD [address] [place] [address] [address] [facility] [place] [address] PCP - General Internal Medicine 12/29/19
== END 2024-10-01 08:02 | disposition home or self-care (01) ==
LOC: HO.MAMMO 08:01
PROVIDERS: PCP Internal Medicine; Visit Provider Internal Medicine
DX: M81.0 Age-related osteoporosis without current pathological fracture (principal); M85.89 Other specified disorders of bone density and structure, multiple sites; G47.33 Obstructive sleep apnea (adult) (pediatric); J45.909 Unspecified asthma, uncomplicated; E66.9 Obesity, unspecified; E03.9 Hypothyroidism, unspecified; E78.00 Pure hypercholesterolemia, unspecified; I10 Essential (primary) hypertension; F41.1 Generalized anxiety disorder
CPT/HCPCS: 77080; 99212

== ENCOUNTER → 2024-10-01 08:08 | Outpatient (BNV) | payer OTHER, SELFPAY | PROVIDERS: PCP Internal Medicine; Visit Provider Radiology Diagnostic Radiology | DX: E28.39 Other primary ovarian failure (principal) | CPT/HCPCS: 77080 ==

== ENCOUNTER 2024-10-01 13:26 | Outpatient (AMB) | payer OTHER, SELFPAY ==
--- NOTE | 2024-10-01 13:28 | MHC.PC.OV ---
Vital Signs 10/01/24 13:29 Height 5 ft 2 in Weight 166 lb 2 oz BMI 30.4 BP 130/86 Blood Pressure Location Lt brachial Position Sitting Pulse 76 Pulse Source Pulse Oximeter Pulse Oximetry (%) 98 Oxygen Delivery Method Room Air Intake Visit Reasons: 3 Month F/U Fixed Income Manager Required: No Accompanied by: Self / Same As Patient Allergies Penicillins (PENICILLINS) Adverse Reaction (Unknown, Verified 10/01/24 13:29) VOMITING Medication List - Last Reconciled 10/01/24 by Tory Lyle MD bisacodyl (Dulcolax (bisacodyl)) 20 mg (4 x 5 mg) PO ONCE 1 day blood pressure monitor (Blood Pressure Kit) As directed budesonide-formoterol 80-4.5 mcg/actuation (Symbicort) 2 puffs inhalation Q12H cetirizine 10 mg PO DAILY PRN cholecalciferol (vitamin D3) 2,000 units PO DAILY 90 days clotrimazole 1% 1 appl topical BID cyclobenzaprine 5 mg PO TID PRN cyclobenzaprine 50 mg PO BEDTIME diclofenac sodium 1% (Voltaren Arthritis Pain) 4 grams topical QID hydrochlorothiazide 12.5 mg PO DAILY levalbuterol tartrate 45 mcg/actuation (Xopenex HFA) 2 inhalations inhalation Q6H levothyroxine 112 mcg PO QAM lidocaine 5% (Lidoderm) 1 patch topical DAILY polyethylene glycol 3350 (Miralax) 238 grams PO ONCE 1 day prednisone 4 tabs QD x 2 days then 3 tabs QD x 2 days then 2 tabs Qd x 2 days then 1 tab QD x 2 days PO daily; sennosides-docusate sodium 8.6-50 mg (Senna Plus) 2 tab-caps (2 x 8.6-50 mg) PO BID simvastatin 20 mg PO BEDTIME 90 days thiamine HCl (vitamin B1) 100 mg PO DAILY Tobacco use date assessed: 10/01/24 Dental Screening Dental Screen Date: 10/01/24 Did you have a dental visit in the last 12 months?: No Did you have a dental problem in the last 6 months where you did not have access to dental care?: No Was dental information given to patient?: Patient has dentist [facility] Medical History Breast cancer screening by mammogram Neck pain Knee pain, left Bumps on skin Insomnia Cervical disc disorder with radiculopathy of mid-cervical region Fibromyalgia History of intussusception Carpal tunnel syndrome, right Peripheral vascular disease Insomnia Obstructive sleep apnea Hypothyroid Hypertension Hypercholesterolemia Varicose veins of lower extremity Arthritis Surgical History History of sleeve gastrectomy H/O oophorectomy History of tubal ligation History of colectomy Family History Father Medical history unknown Mother Colon cancer Social History Household Members: None Housing: Apartment Alcohol intake: current Alcohol intake frequency: a few times a month Comment: allie 4x a week 2 shots Patient Tobacco Use Status: Former Tobacco user Tobacco use type: Cigarette Years Smoked: quit 17 years old e-Cigarette/Vaping Use: Never Used Second Hand Smoke Exposure: Yes Substance Use Type: Marijuana service: No Current occupational status: disabled Cognitive needs: No Hearing needs: No Vision needs: No Questionnaire PHQ-9 Over the last 2 weeks, how often have you been bothered by any of the following problems? 1. Little interest or pleasure in doing things: more than half the days 2. Feeling down, depressed, or hopeless: several days 3. Trouble falling or staying asleep, or sleeping too much: nearly every day 4. Feeling tired or having little energy: nearly every day 5. Poor appetite or overeating: nearly every day 6. Feeling bad about yourself - or that you are a failure or have let yourself or your family down: not at all 7. Trouble concentrating on things, such as reading the newspaper or watching television: not at all 8. Moving or speaking so slowly that other people could have noticed. Or the opposite - being so fidgety or restless that you have been moving around a lot more than usual: not at all 9. Thoughts that you would be better off or of hurting yourself in some way: not at all Total score: 12 Source: Developed by Drs. Robert CottonVioleta Kurt Kroenke and colleagues, with an educational sarah from [employer]. Thrive Questionnaire Date Thrive assessed: 10/01/24 I am a: Patient What is your living situation today?: I choose not to answer this question Within the past 12 months, did the food you bought not last and you didn't have the money to get more?: Never true Within the past 12 months, did you worry whether your food would run out before you got money to buy more?: Never true Do you have trouble paying for medicines?: No Do you have trouble getting transportation to medical appointments?: No Do you have trouble paying your heating and electricity bill?: No Do you have trouble taking care of your child, family member or friend?: No Do you have trouble with day-to-day activities such as bathing, preparing meals, shopping, managing finances, etc.?: I choose not to answer this question Are you currently unemployed and looking for a job?: No Are you interested in more education?: No Please select the resources that you would like help with: None Currently or been in a relationship where the following occur: I choose not to answer THRIVE Score: 0 AUDIT C Alcohol Use Questionnaire (AUDIT-C) 1. How often do you have a drink containing alcohol?: 2-4 times a month 2. How many drinks containing alcohol do you have on a typical day when you are drinking?: 3 or 4 3. How often do you have six or more drinks on one occasion?: Never Total Score: 3 MARC-7 AMB Questionnaire MARC-7 Date MARC - 7 assessed: 10/01/24 Feeling nervous, anxious, or on edge: 0 = Not at all Not being able to stop or control worryin = Not at all Worrying too much about different things: 0 = Not at all Trouble relaxin = Not at all Being so restless that it is hard to sit still: 0 = Not at all Becoming easily annoyed or irritable: 0 = Not at all Feeling afraid as if something awful might happen: 0 = Not at all Total MARC-7 score (0-4 normal; 5-9 mild; 10-14 moderate; 15-21 severe): 0 Source: Developed by Violeta Gonzalez Kurt Kroenke and colleagues, with an educational sarah from [employer]. Physical exam (Primary Care) Vital Signs: Last Vital Signs Pulse 76 10/01/24 13:29 BP 130/86 10/01/24 13:29 Pulse Ox 98 10/01/24 13:29 Oxygen Delivery Method Room Air 10/01/24 13:29 BMI result Body Mass Index 30.4 Tobacco/Smoking Status: Tobacco use Status Tobacco use date assessed 10/01/24 10/01/24 13:30 Patient Tobacco Use Status Former Tobacco user 10/01/24 13:30 Tobacco use type Cigarette 10/01/24 13:30 e-Cigarette/Vaping Use Never Used 10/01/24 13:30 PHQ-9: PHQ-9 Score PHQ-9: Total score 12 10/01/24 13:58 Thrive Assessment: Date of Thrive Assessment Date Thrive assessed 10/01/24 10/01/24 13:30 Currently or been in a relationship where the following occur: I choose not to answer Const General: alert; No acute distress Eyes Conjunctivae: conjunctivae normal Resp Auscultation: clear to auscultation bilaterally Cardio Rate: regular rate Rhythm: regular rhythm GI Inspection: Yes normal to inspection Extrem General: Yes normal to inspection and No edema Coding Level of Care Code Est Pt Level 4 (63166) Complex EM visit Add On G2211 Diagnoses Obstructive sleep apnea G47.33 Asthma J45.909 Obesity (BMI 30.0-34.9) E66.9 History of sleeve gastrectomy Z90.3 Acquired hypothyroidism E03.9 Hypothyroidism type: acquired Hypercholesterolemia E78.00 Essential hypertension I10 Hypertension type: essential hypertension Generalized anxiety disorder F41.1 Osteopenia of multiple sites M85.89 Osteopenia location: multiple sites Assessment & Plan Assessment & Plan (1) Obstructive sleep apnea: Comment: on the CPAP q night > 4 hours and benefits patient Code(s): G47.33 - Obstructive sleep apnea (adult) (pediatric) Category: Medical Plan: Continue to use the CPAP more than 4 hours a night and benefits from this. (2) Asthma: Code(s): J45.909 - Unspecified asthma, uncomplicated Category: Medical Plan: Continue with Symbicort inhaler (3) Obesity (BMI 30.0-34.9): Code(s): E66.9 - Obesity, unspecified Category: Medical Plan: Diet and exercise (4) History of sleeve gastrectomy: Comment: 2018 Code(s): Z90.3 - Acquired absence of stomach [part of] Category: Surgical Plan: Continue to follow-up with bariatric (5) Hypothyroid: Code(s): E03.9 - Hypothyroidism, unspecified Category: Medical Qualifiers: Hypothyroidism type: acquired Qualified Code(s): E03.9 - Hypothyroidism, unspecified Plan: May 2024 last blood work continue with thyroid medication (6) Hypercholesterolemia: Code(s): E78.00 - Pure hypercholesterolemia, unspecified Category: Medical Plan: Avoid fried foods, chicken skin, eggs, butter margarine, pastries and meat. Be it pork or beef they have a lot of cholesterol on simvastatin 20 mg once a day LDL goal of less than 130 and triglyceride of less than 150 (7) Hypertension: Code(s): I10 - Essential (primary) hypertension Category: Medical Qualifiers: Hypertension type: essential hypertension Qualified Code(s): I10 - Essential (primary) hypertension Plan: Continue with blood pressure medication. Decrease salt intake and exercise takes hydrochlorothiazide 12.5 mg once a day only (8) Generalized anxiety disorder: Comment: Psychiatry Dr. William Boles, Code(s): F41.1 - Generalized anxiety disorder Category: Medical Plan: Continue to follow-up with counseling and therapy (9) Osteopenia: Comment: October 2021 Code(s): M85.80 - Other specified disorders of bone density and structure, unspecified site Category: Medical Qualifiers: Osteopenia location: multiple sites Qualified Code(s): M85.89 - Other specified disorders of bone density and structure, multiple sites Plan History of Present Illness The patient is a 63-year-old female presenting for a follow-up visit. She has a history of obesity, hypertension, hypercholesterolemia, hypothyroidism, and obstructive sleep apnea managed with CPAP therapy. The patient underwent a sleeve gastrectomy in 2019 and has been following up with bariatrics. The patient also has generalized anxiety disorder and lumbar degenerative disc disease. She was previously treated with steroids for a rash and has been using a Symbicort inhaler for asthma management. A bone density test conducted on October 01 showed osteopenia with a 12% decrease in hip density, though the lumbar spine showed no significant change. The patient has been advised to consider medications to strengthen bones, alongside vitamin D and calcium supplementation. The patient reports a history of onychomycosis and is considering treatment options. She also has a heart murmur, with previous ultrasounds indicating normal left ventricular function. Health Maintenance - Bone density screening conducted on October 01, showing osteopenia - Advised to maintain vitamin D and calcium intake for bone health - Continues CPAP therapy for obstructive sleep apnea - Follow-up with bariatrics for weight management post-sleeve gastrectomy Social History - Family status: Has grandchildren, one recently graduated, youngest is eight years old Review of Systems - Respiratory: Reports regular breathing, uses Symbicort inhaler for asthma management - Cardiovascular: Reports heart murmur, no chest pain or syncope Physical Exam - Cardiovascular: Heart murmur noted, previous ultrasound showed normal left ventricular function Results - Bone Density Test: Conducted on October 01, showing osteopenia with a 12% decrease in hip density, no significant change in lumbar spine Plan The patient will continue CPAP therapy for obstructive sleep apnea, ensuring usage for more than 4 hours nightly to maintain benefits. She is advised to continue with her current regimen of Symbicort inhaler for asthma management and to maintain her diet and exercise routine. The patient should follow up with bariatrics for ongoing weight management post-sleeve gastrectomy. For osteopenia, the patient is advised to consider starting a weekly medication to strengthen bones, along with maintaining adequate vitamin D and calcium intake. She should consult with a dentist before starting bone medication due to potential complications. The patient is considering treatment for onychomycosis, which may require a 3 to 6-month course of medication, with liver function tests needed one month after starting treatment. She should continue monitoring her blood pressure and cholesterol levels, with current medications including hydrochlorothiazide and simvastatin. Follow-up appointments are recommended in three months, with blood work for liver function and thyroid testing in one month. Patient was informed and verbally consented to the use of an ambient scribe for clinic note documentation during this visit. Discussion Notes I discussed with the patient the importance of continuing CPAP therapy for obstructive sleep apnea and maintaining her current asthma management with Symbicort. We reviewed the bone density results, which showed osteopenia, and discussed the option of starting a weekly medication to strengthen bones, emphasizing the need for vitamin D and calcium supplementation. I advised the patient to consult with a dentist before starting bone medication due to potential complications. We also discussed the treatment for onychomycosis, which may require a 3 to 6-month course of medication, and the need for liver function tests one month after starting treatment. The patient was informed about the importance of monitoring blood pressure and cholesterol levels, and the continuation of current medications, including hydrochlorothiazide and simvastatin. Follow-up appointments were recommended in three months, with blood work for liver function and thyroid testing in one month. Patient Instructions - Continue using CPAP for more than 4 hours each night. - Keep using Symbicort inhaler as prescribed. - Maintain diet and exercise routine. - Follow up with bariatrics for weight management. - Consider starting bone medication and consult a dentist beforehand. - Monitor blood pressure and cholesterol levels. - Schedule follow-up appointments in three months and blood work in one month. Orders: Orders Liver Panel 1 Month B35.1 - Tinea unguium, R79.89 - Other specified abnormal findings of blood chemistry Medications: New terbinafine HCl 250 mg PO DAILY 84 tabs 1RF 12 weeks Discontinued prednisone Discontinued Reason: Doctor's Order 4 tabs QD x 2 days then 3 tabs QD x 2 days then 2 tabs Qd x 2 days then 1 tab QD x 2 days PO daily; 20 tabs 0RF J45.909 - Unspecified asthma, uncomplicated, L23.9 - Allergic contact dermatitis, unspecified cause
[2024-10-01 13:29] VITALS: BP 130/86; PULSE 76; O2SAT 98; BMI 30.4
== END 2024-10-01 14:13 | disposition home or self-care (01) ==
LOC: HO.HMCH 13:27
PROVIDERS: PCP Internal Medicine; Visit Provider Internal Medicine
DX: G47.33 Obstructive sleep apnea (adult) (pediatric) (principal); J45.909 Unspecified asthma, uncomplicated; E66.9 Obesity, unspecified; Z68.30 Body mass index [BMI] 30.0-30.9, adult; Z90.3 Acquired absence of stomach [part of]; E03.9 Hypothyroidism, unspecified; E78.00 Pure hypercholesterolemia, unspecified; I10 Essential (primary) hypertension; F41.1 Generalized anxiety disorder; M85.89 Other specified disorders of bone density and structure, multiple sites

== ENCOUNTER 2024-10-17 15:18 | Outpatient (AMB) | payer OTHER, SELFPAY ==
--- OUTSIDE RECORDS SUMMARY | 2024-10-17 15:21 | XMS_ITS | Clinical Summary ---
Author Organization [facility] Address [address] [place] [address] Care Team Providers Care Weir Fisher Name Role Phone Tory Lyle MD Primary Care Provider [phone] Social History Tobacco Use Types Packs/Day Years [...] (1 of 2) 2010 Influenza Vaccine (#1) 2024 RSV Adult > 60+ Yrs or Pregn [...] age to complete this topic Care Teams Weir Fisher Relationship Specialty Start Date End Date Tory Lyle MD [address] [place] [address] [address] [facility] [place] [address] PCP - General Internal Medicine 12/29/19
--- OUTSIDE RECORDS SUMMARY | 2024-10-17 15:21 | XMS_ITS | Clinical Summary ---
Author Organization [facility] ity Address [address] [place] [address] Care Team Providers Care Compensation Advisor Name Role Phone Tory Lyle MD Primary Care Provider [phone] Social History Tobacco Use Types Packs/Day Years [...] 2023-2 5 season) 2023 Influenza Vaccine (#1) 2024 RSV Immunization Adult Patie nts (1 [...] 5 Years) and At-Risk Patients (6 to 49 Years) Aged Out No longer eligible b ased on patient's age to complete this topic RSV Immunization Patients Un joao 20 months Aged Out No longer eligible b ased on patient's age to complete this topic Varicella Vaccines Aged Out No longer eligible based on patient's age to complete this topic Care Teams Compensation Advisor Relationship Specialty Start Date End Date Tory Lyle MD [address] [place] [address] [address] [facility] [place] [address] PCP - General Internal Medicine 12/29/19
[2024-10-17 15:32] VITALS: BP 122/84; PULSE 86; TEMP 36.2; O2SAT 97; BMI 30.6
--- NOTE | 2024-10-17 15:32 | MHC.PC.OV ---
Vital Signs 10/17/24 15:32 Height 5 ft 2 in Weight 167 lb 4 oz BMI 30.6 BP 122/84 Blood Pressure Location Lt brachial Position Sitting Pulse 86 Pulse Source Pulse Oximeter Temp 97.1 F Temp Source Temporal Artery Scan Pulse Oximetry (%) 97 Oxygen Delivery Method Room Air Intake Visit Reasons: Rash Allergies Penicillins (PENICILLINS) Adverse Reaction (Unknown, Verified 10/17/24 15:35) VOMITING Medication List - Last Reconciled 10/17/24 by Tory Lyle MD bisacodyl (Dulcolax (bisacodyl)) 20 mg (4 x 5 mg) PO ONCE 1 day blood pressure monitor (Blood Pressure Kit) As directed budesonide-formoterol 80-4.5 mcg/actuation (Symbicort) 2 puffs inhalation Q12H cetirizine 10 mg PO DAILY PRN cholecalciferol (vitamin D3) 2,000 units PO DAILY 90 days clotrimazole 1% 1 appl topical BID cyclobenzaprine 5 mg PO TID PRN cyclobenzaprine 50 mg PO BEDTIME diclofenac sodium 1% (Voltaren Arthritis Pain) 4 grams topical QID hydrochlorothiazide 12.5 mg PO DAILY hydroxyzine HCl 25 mg PO TID PRN levalbuterol tartrate 45 mcg/actuation (Xopenex HFA) 2 inhalations inhalation Q6H levothyroxine 112 mcg PO QAM lidocaine 5% (Lidoderm) 1 patch topical DAILY polyethylene glycol 3350 (Miralax) 238 grams PO ONCE 1 day sennosides-docusate sodium 8.6-50 mg (Senna Plus) 2 tab-caps (2 x 8.6-50 mg) PO BID simvastatin 20 mg PO BEDTIME 90 days thiamine HCl (vitamin B1) 100 mg PO DAILY triamcinolone acetonide 0.5% 1 appl topical BID Tobacco use date assessed: 10/01/24 Dental Screening Dental Screen Date: 10/01/24 Did you have a dental visit in the last 12 months?: No Did you have a dental problem in the last 6 months where you did not have access to dental care?: No Was dental information given to patient?: Patient has dentist HPI Rash HPI Details PAtient complains of rash on the leg and lower back and was prescribed steroid oral but states has been in the garden anbd had rash on the legs and lower back and r hip area. [facility] Medical History Breast cancer screening by mammogram Neck pain Knee pain, left Bumps on skin Insomnia Cervical disc disorder with radiculopathy of mid-cervical region Fibromyalgia History of intussusception Carpal tunnel syndrome, right Peripheral vascular disease Insomnia Obstructive sleep apnea Hypothyroid Hypertension Hypercholesterolemia Varicose veins of lower extremity Arthritis Surgical History History of sleeve gastrectomy H/O oophorectomy History of tubal ligation History of colectomy Family History Father Medical history unknown Mother Colon cancer Social History Household Members: None Housing: Apartment Alcohol intake: current Alcohol intake frequency: a few times a month Comment: allie 4x a week 2 shots Patient Tobacco Use Status: Former Tobacco user Tobacco use type: Cigarette Years Smoked: quit 17 years old e-Cigarette/Vaping Use: Never Used Second Hand Smoke Exposure: Yes Substance Use Type: Marijuana service: No Current occupational status: disabled Cognitive needs: No Hearing needs: No Vision needs: No Questionnaire PHQ-9 Over the last 2 weeks, how often have you been bothered by any of the following problems? 1. Little interest or pleasure in doing things: more than half the days 2. Feeling down, depressed, or hopeless: several days 3. Trouble falling or staying asleep, or sleeping too much: nearly every day 4. Feeling tired or having little energy: nearly every day 5. Poor appetite or overeating: nearly every day 6. Feeling bad about yourself - or that you are a failure or have let yourself or your family down: not at all 7. Trouble concentrating on things, such as reading the newspaper or watching television: not at all 8. Moving or speaking so slowly that other people could have noticed. Or the opposite - being so fidgety or restless that you have been moving around a lot more than usual: not at all 9. Thoughts that you would be better off or of hurting yourself in some way: not at all Total score: 12 Source: Developed by Drs. Robert Cotton, Violeta Pineda, Radames Casas and colleagues, with an educational sarah from [employer]. Thrive Questionnaire Date Thrive assessed: 10/01/24 I am a: Patient What is your living situation today?: I choose not to answer this question Within the past 12 months, did the food you bought not last and you didn't have the money to get more?: Never true Within the past 12 months, did you worry whether your food would run out before you got money to buy more?: Never true Do you have trouble paying for medicines?: No Do you have trouble getting transportation to medical appointments?: No Do you have trouble paying your heating and electricity bill?: No Do you have trouble taking care of your child, family member or friend?: No Do you have trouble with day-to-day activities such as bathing, preparing meals, shopping, managing finances, etc.?: I choose not to answer this question Are you currently unemployed and looking for a job?: No Are you interested in more education?: No Please select the resources that you would like help with: None Currently or been in a relationship where the following occur: I choose not to answer THRIVE Score: 0 AUDIT C Alcohol Use Questionnaire (AUDIT-C) 1. How often do you have a drink containing alcohol?: 2-4 times a month 2. How many drinks containing alcohol do you have on a typical day when you are drinking?: 3 or 4 3. How often do you have six or more drinks on one occasion?: Never Total Score: 3 MARC-7 AMB Questionnaire MARC-7 Date MARC - 7 assessed: 10/01/24 Feeling nervous, anxious, or on edge: 0 = Not at all Not being able to stop or control worryin = Not at all Worrying too much about different things: 0 = Not at all Trouble relaxin = Not at all Being so restless that it is hard to sit still: 0 = Not at all Becoming easily annoyed or irritable: 0 = Not at all Feeling afraid as if something awful might happen: 0 = Not at all Total MARC-7 score (0-4 normal; 5-9 mild; 10-14 moderate; 15-21 severe): 0 Source: Developed by Harjinder Gonzalezet B.W. Edwin, Radames Casas and colleagues, with an educational sarah from [employer]. Physical exam (Primary Care) Vital Signs: Last Vital Signs Temp 97.1 F 10/17/24 15:32 Pulse 86 10/17/24 15:32 BP 122/84 10/17/24 15:32 Pulse Ox 97 10/17/24 15:32 Oxygen Delivery Method Room Air 10/17/24 15:32 BMI result Body Mass Index 30.6 Tobacco/Smoking Status: Tobacco use Status Tobacco use date assessed 10/01/24 10/17/24 15:37 Patient Tobacco Use Status Former Tobacco user 10/17/24 15:37 Tobacco use type Cigarette 10/17/24 15:37 e-Cigarette/Vaping Use Never Used 10/17/24 15:37 PHQ-9: PHQ-9 Score PHQ-9: Total score 12 10/17/24 15:37 Thrive Assessment: Date of Thrive Assessment Date Thrive assessed 10/01/24 10/17/24 15:37 Currently or been in a relationship where the following occur: I choose not to answer Const General: alert; No acute distress Eyes Conjunctivae: conjunctivae normal Resp Auscultation: clear to auscultation bilaterally Cardio Rate: regular rate Rhythm: regular rhythm GI Inspection: Yes normal to inspection Extrem General: Yes normal to inspection and No edema Coding Level of Care Code Est Pt Level 3 (45465) Diagnoses Contact dermatitis, allergic L23.9 Assessment & Plan Assessment & Plan (1) Contact dermatitis, allergic: Code(s): L23.9 - Allergic contact dermatitis, unspecified cause Category: Medical Plan History of Present Illness The patient is a 63-year-old female presenting with a rash and eye swelling. The rash began after exposure to plants in her garden, with symptoms including itching, redness, and dryness, particularly affecting her legs and back. She attempted self-treatment with oatmeal baths, which provided some relief, but the rash persisted. The eye swelling occurred after gardening, with symptoms of blurriness and swelling, which resolved over time. The patient has a history of hypertension, hypercholesterolemia, hypothyroidism, obstructive sleep apnea, generalized anxiety disorder, and lumbar degenerative disc disease. She underwent a sleeve gastrectomy in 2019. Health Maintenance Social History Review of Systems - Dermatological: Reports rash with itching, redness, and dryness. - Ophthalmological: Reports eye swelling and blurriness, resolved. Physical Exam Results Plan The patient was advised to avoid exposure to plants that may have caused the rash. A prescription for hydroxyzine was provided to manage itching, with a warning about potential drowsiness. Triamcinolone cream was prescribed for topical application, with instructions to avoid open wounds. The patient was instructed to continue using cetirizine for allergy management. Patient was informed and verbally consented to the use of an ambient scribe for clinic note documentation during this visit. Discussion Notes I discussed with the patient the likely cause of her rash being exposure to plants in her garden. We reviewed the use of hydroxyzine for itching and triamcinolone cream for topical application, emphasizing the importance of avoiding open wounds. I advised her to continue using cetirizine for allergies and to avoid further exposure to potential irritants in her garden. Patient Instructions - Avoid exposure to plants that may cause rash. - Take hydroxyzine as prescribed for itching, be aware it may cause drowsiness. - Apply triamcinolone cream as directed, avoid open wounds. - Continue taking cetirizine for allergies. Medications: New hydroxyzine HCl 25 mg PO TID PRN 30 tabs 0RF itching L23.9 - Allergic contact dermatitis, unspecified cause triamcinolone acetonide 0.5% 1 appl topical BID 45 grams 0RF L23.9 - Allergic contact dermatitis, unspecified cause
== END 2024-10-17 16:09 | disposition home or self-care (01) ==
LOC: HO.HMCH 15:18
PROVIDERS: PCP Internal Medicine; Visit Provider Internal Medicine
DX: L23.9 Allergic contact dermatitis, unspecified cause (principal)

== ENCOUNTER → 2024-10-17 15:18 | Outpatient (BNVA) | payer OTHER, SELFPAY | PROVIDERS: PCP Internal Medicine; Visit Provider Internal Medicine | DX: I10 Essential (primary) hypertension (principal); L23.9 Allergic contact dermatitis, unspecified cause | CPT/HCPCS: 99212 ==

== ENCOUNTER 2025-01-28 08:15 | Outpatient (AMB) | payer OTHER, SELFPAY ==
[2025-01-28 08:20] VITALS: BP 136/72; PULSE 78; O2SAT 98; BMI 31.5
--- NOTE | 2025-01-28 08:20 | A.OFFPC_ITS ---
Vital Signs 3 01/28/25 08:20 Height 5 ft 2 in Weight 172 lb BMI 31.5 BP 136/72 Blood Pressure Location Lt brachial Position Sitting Pulse 78 Pulse Source Pulse Oximeter Pulse Oximetry (%) 98 Oxygen Delivery Method Room Air Intake Visit Reasons: onychomycosis Allergies Penicillins (PENICILLINS) Adverse Reaction (Unknown, Verified 01/28/25 08:21) VOMITING Tobacco use date assessed: 10/01/24 Fall risk assessment: No Falls in past year Last assessed Fall Risk: 01/28/25 Dental Screening Dental Screen Date: 10/01/24 HPI onychomycosis 2 HPI0 Details CPAP not able to use due to contamination [facility] Medical History Breast cancer screening by mammogram Neck pain Knee pain, left Bumps on skin Insomnia Cervical disc disorder with radiculopathy of mid-cervical region Fibromyalgia History of intussusception Carpal tunnel syndrome, right Peripheral vascular disease Insomnia Obstructive sleep apnea Hypothyroid Hypertension Hypercholesterolemia Varicose veins of lower extremity Arthritis Surgical History History of sleeve gastrectomy H/O oophorectomy History of tubal ligation History of colectomy Family History Father Medical history unknown Mother Colon cancer Social History Household Members: None Housing: Apartment Alcohol intake: current Alcohol intake frequency: a few times a month Comment: allie 4x a week 2 shots Patient Tobacco Use Status: Former Tobacco user Tobacco use type: Cigarette Years Smoked: quit 17 years old e-Cigarette/Vaping Use: Never Used Second Hand Smoke Exposure: Yes Substance Use Type: Marijuana service: No Current occupational status: disabled Cognitive needs: No Hearing needs: No Vision needs: No Questionnaire Thrive Questionnaire Date Thrive assessed: 10/01/24 I am a: Patient What is your living situation today?: I choose not to answer this question Within the past 12 months, did the food you bought not last and you didn't have the money to get more?: Never true Within the past 12 months, did you worry whether your food would run out before you got money to buy more?: Never true Do you have trouble paying for medicines?: No Do you have trouble getting transportation to medical appointments?: No Do you have trouble paying your heating and electricity bill?: No Do you have trouble taking care of your child, family member or friend?: No Do you have trouble with day-to-day activities such as bathing, preparing meals, shopping, managing finances, etc.?: I choose not to answer this question Are you currently unemployed and looking for a job?: No Are you interested in more education?: No Please select the resources that you would like help with: None Currently or been in a relationship where the following occur: I choose not to answer THRIVE Score: 0 MARC-7 AMB Questionnaire MARC-7 Date MARC - 7 assessed: 10/01/24 Worrying too much about different things: 3 = Nearly every day Trouble relaxin = Nearly every day Being so restless that it is hard to sit still: 3 = Nearly every day Becoming easily annoyed or irritable: 3 = Nearly every day Feeling afraid as if something awful might happen: 3 = Nearly every day Source: Developed by Drs. Robert Cotton, Violeta Pineda, Radames Casas and colleagues, with an educational sarah from [employer]. Physical exam (Primary Care) Vital Signs: Last Vital Signs Pulse 78 01/28/25 08:20 BP 136/72 01/28/25 08:20 Pulse Ox 98 01/28/25 08:20 Oxygen Delivery Method Room Air 01/28/25 08:20 BMI result Body Mass Index 31.5 Tobacco/Smoking Status: Tobacco use Status Tobacco use date assessed 10/01/24 01/28/25 08:31 Patient Tobacco Use Status Former Tobacco user 01/28/25 08:31 Tobacco use type Cigarette 01/28/25 08:31 e-Cigarette/Vaping Use Never Used 01/28/25 08:31 Thrive Assessment: Date of Thrive Assessment Date Thrive assessed 10/01/24 01/28/25 08:31 Currently or been in a relationship where the following occur: I choose not to answer Const General: alert; No acute distress Eyes Conjunctivae: conjunctivae normal Resp Auscultation: clear to auscultation bilaterally Cardio Rate: regular rate Rhythm: regular rhythm GI Inspection: Yes normal to inspection Extrem General: Yes normal to inspection and No edema Elbow/forearm/wrist images: 2 1. 1 cm hyperpigmented papular rash with scaliness Office Procedures Flu Questionnaire Does the patient have a severe egg allergy?: No Does the patient have severe life threatening allergies?: No Does the patient have a fever or illness today?: No Has the patient ever had Guillain-Chama Syndrome?: No Has the patient ever had any past reaction to a flu shot?: No Immunizations Fluarix [id number] (PF) 45 mcg (15 mcg x 3)/0.5 mL IM syringe Performing Provider: Tory Lyle MD Performing Location: [facility] Administered by: HÉCTOR Isabel on 01/28/25 09:01 2 Dose Route Admin Location Dispensed Lot Number Expiration Date [facility] Oil Well Pumper 0.5 mL IM Left Deltoid 0.5 mL [id number] 10/06/25 [id number] [employer] 2 VIS Given Date VIS Provided VIS Publication Date 01/28/25 Single Vaccine 24 Eligibility Eligibility Date Funding Source Not [facility] Eligible 01/28/25 Private Coding Level of Care Code Est Pt Level 4 (08355) Complex EM visit Add On G2211 Diagnoses Acquired hypothyroidism E03.9 Hypothyroidism type: acquired Essential hypertension I10 Hypertension type: essential hypertension Hypercholesterolemia E78.00 History of sleeve gastrectomy Z90.3 Obesity (BMI 30.0-34.9) E66.9 Colon cancer screening Z12.11 Obstructive sleep apnea G47.33 Generalized anxiety disorder F41.1 Actinic keratoses L57.0 Assessment & Plan Assessment & Plan (1) Hypothyroid: Code(s): E03.9 - Hypothyroidism, unspecified Category: Medical Qualifiers: Hypothyroidism type: acquired Qualified Code(s): E03.9 - Hypothyroidism, unspecified Plan: Patient was advised to repeat blood work for the thyroid as the last test was low. (2) Hypertension: Code(s): I10 - Essential (primary) hypertension Category: Medical Qualifiers: Hypertension type: essential hypertension Qualified Code(s): I10 - Essential (primary) hypertension Plan: Continue with blood pressure medication. Decrease salt intake and exercise on hydrochlorothiazide only (3) Hypercholesterolemia: Code(s): E78.00 - Pure hypercholesterolemia, unspecified Category: Medical Plan: Avoid fried foods, chicken skin, eggs, butter margarine, pastries and meat. Be it pork or beef they have a lot of cholesterol LDL goal of less than 130 and triglyceride of less than 150 on simvastatin 20 mg (4) History of sleeve gastrectomy: Comment: 2019 Code(s): Z90.3 - Acquired absence of stomach [part of] Category: Surgical Plan: Continue with follow-up with bariatric (5) Obesity (BMI 30.0-34.9): Code(s): E66.9 - Obesity, unspecified Category: Medical Plan: Diet and exercise (6) Colon cancer screening: Code(s): Z12.11 - Encounter for screening for malignant neoplasm of colon Category: Medical Plan: Patient is reminded about colonoscopy (7) Obstructive sleep apnea: Comment: on the CPAP q night > 4 hours and benefits patient Code(s): G47.33 - Obstructive sleep apnea (adult) (pediatric) Category: Medical Plan: not able to use the CPAP due to contamination. states has tried exterminators but states will go to [facility] (8) Generalized anxiety disorder: Comment: Psychiatry Dr. William Boles, Code(s): F41.1 - Generalized anxiety disorder Category: Medical Plan: Continue with counseling and therapy (9) Actinic keratoses: Code(s): L57.0 - Actinic keratosis Category: Medical Plan History of Present Illness The patient is a 64-year-old female presenting for a follow-up visit. The patient has a history of obesity, managed with a sleeve gastrectomy in 2019, and reports a current weight of 172 pounds, attributing weight gain to stress and insomnia. Hypertension is managed with hydrochlorothiazide, and hypercholesterolemia is treated with simvastatin 20 mg, aiming for LDL cholesterol below 130 mg/dL and triglycerides below 150 mg/dL. The patient has hypothyroidism with a recent mildly low TSH level, requiring a repeat test and follow-up with her fashion artist. Obstructive sleep apnea is managed with CPAP therapy, though the patient reports difficulty using the machine due to concerns about mice in her home. The patient continues with counseling and therapy for generalized anxiety disorder. Osteopenia was noted on the last bone density scan, and lumbar degenerative disease contributes to occasional back pain. Asthma is managed with inhalers as needed, and the patient is advised to avoid known triggers. The patient is a glaucoma suspect and has cataracts, with regular ophthalmology follow-ups in place. Preventative care measures include a colonoscopy and mammogram, both of which are due, and the patient is up to date with her flu vaccine and has received her second shingles shot. Health Maintenance - Colonoscopy due - Mammogram due - Flu vaccine up to date - Second shingles shot received Social History - Housing: Reports issues with mice in the home, affecting sleep and CPAP use. - Weight management: Reports stress and insomnia contributing to weight gain. Review of Systems - General: Reports weight gain, insomnia. - Respiratory: Reports difficulty using CPAP due to mice concerns. - Musculoskeletal: Reports occasional back pain. - Dermatological: Reports rash, currently resolved with ointments. Physical Exam Results - Labs: Normal blood count, mild leukopenia, normal electrolytes, renal function, blood sugar, liver function, cholesterol at 84 mg/dL, mildly low TSH. Plan Patient was informed and verbally consented to the use of an ambient scribe for clinic note documentation during this visit. 1. Obesity The patient is advised to continue with diet and exercise, and follow up with bariatrics for weight management. 2. Hypertension Hypertension is managed with hydrochlorothiazide, and the patient is advised to monitor her blood pressure regularly. 3. Hypercholesterolemia The patient is on simvastatin 20 mg, with a goal of maintaining LDL cholesterol below 130 mg/dL and triglycerides below 150 mg/dL. 4. Hypothyroidism The patient is advised to repeat blood work for thyroid function due to a mildly low TSH level and follow up with her fashion artist. 5. Obstructive Sleep Apnea The patient is encouraged to continue using CPAP therapy for more than 4 hours per night despite concerns about mice in her home. 6. Generalized Anxiety Disorder The patient is advised to continue with counseling and therapy. 7. Osteopenia The patient is advised to maintain adequate calcium and vitamin D intake. 8. Lumbar Degenerative Disease The patient is advised to manage occasional back pain with appropriate measures. 9. Asthma The patient is advised to use inhalers as needed and avoid known triggers. 10. Preventative Care The patient is reminded about the due colonoscopy and mammogram, and is up to date with her flu vaccine and shingles shot. Discussion Notes During the visit, I discussed with the patient the importance of continuing her current management plans for hypertension, hypercholesterolemia, and hypothyroidism. We reviewed the need for regular use of CPAP for obstructive sleep apnea and addressed her concerns about mice in her home. I emphasized the importance of preventative care, including the upcoming colonoscopy and mammogram, and confirmed her flu vaccine and shingles shot status. Patient Instructions - Continue with diet and exercise, and follow up with bariatrics. - Monitor blood pressure regularly and continue hydrochlorothiazide. - Take simvastatin 20 mg as prescribed to maintain cholesterol levels. - Repeat thyroid blood work and follow up with fashion artist. - Use CPAP for more than 4 hours per night despite home concerns. - Continue counseling and therapy for anxiety. - Maintain adequate calcium and vitamin D intake for osteopenia. - Use inhalers as needed for asthma and avoid triggers. - Schedule and complete due colonoscopy and mammogram. - Stay up to date with vaccinations, including flu and shingles shots. Orders: Orders 2 Influenza [id number] Immunization Today Z23 - Encounter for immunization MM tomosynthesis screening BI Today Z12.11 - Encounter for screening for malignant neoplasm of colon, Z12.31 - Encounter for screening mammogram for malignant neoplasm of breast Referrals 2 Gastroenterology Referral Z12.11 - Encounter for screening for malignant neoplasm of colon Dermatology Referral L57.0 - Actinic keratosis
--- OUTSIDE RECORDS SUMMARY | 2025-01-28 08:23 | XMS_ITS | Clinical Summary ---
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 Name Role Phone Tory Lyle MD Primary Care Provider [phone] Social History Tobacco Use Types Packs/Day Years Used Date Smoking Tobacco: Never Assessed Comments Unknown Sex and Gender Information Value Date Recorded Sex Assigned at Not on file Legal Sex Female 9:43 PM EST Gender Identity Not on file Sexual Orientation Not on file Plan of Treatment Health Maintenance Due Date Last Done Comments Breast Cancer Screening 1960 Colorectal Cancer Screening: Colonoscopy 1960 DTaP,Tdap,and Td Vaccines (1 - Tdap) 12/23/1979 Cervical Cancer Screening: P ap Smear 1981 Pneumococcal Vaccine: 50+ Ye ars (1 of 1 - PCV) 2010 Zoster Vaccines (1 of 2) 2010 HIV Screening 05/08/2023 Hepatitis C Screening 05/08/2023 Social Influencers of Health Screening 05/08/2023 Depression Screening 04/09/2024 COVID-19 Vaccine (1 - 2023-2 5 season) 2024 Influenza Vaccine (#1) 2024 RSV Immunization Adult [...] age to complete this topic Care Teams Liquid Waste Treatment Plant Operator Relationship Specialty Start Date End Date Tory Lyle MD [address] [place] [address] [address] [facility] [place] [id number] PCP - General Internal Medicine 12/29/19
--- OUTSIDE RECORDS SUMMARY | 2025-01-28 08:24 | XMS_ITS | Clinical Summary ---
Author Organization [facility] Address [address] [place] [address] Care Team Providers Care Community Support Associate Name Role Phone Tory Lyel MD Primary Care Provider [phone] Social History Tobacco Use Types Packs/Day Years [...] of 2) 2010 Influenza Vaccine (#1) 2024 Pneumococcal Vaccine (1 of 1 - PCV) 2025 RSV Adult > 60+ Yrs or Pregn [...] age to complete this topic Care Teams Community Support Associate Relationship Specialty Start Date End Date Tory Lyle MD [address] [place] [address] [address] [facility] [place] [address] PCP - General Internal Medicine 12/29/19
== END 2025-01-28 09:32 | disposition home or self-care (01) ==
LOC: HO.HMCH 08:16
PROVIDERS: PCP Internal Medicine; Visit Provider Internal Medicine
DX: E03.9 Hypothyroidism, unspecified (principal); I10 Essential (primary) hypertension; E66.9 Obesity, unspecified; Z68.31 Body mass index [BMI] 31.0-31.9, adult; E78.00 Pure hypercholesterolemia, unspecified; Z90.3 Acquired absence of stomach [part of]; Z12.11 Encounter for screening for malignant neoplasm of colon; G47.33 Obstructive sleep apnea (adult) (pediatric); F41.1 Generalized anxiety disorder; L57.0 Actinic keratosis; Z23 Encounter for immunization

== ENCOUNTER → 2025-01-28 08:15 | Outpatient (BNVA) | payer OTHER, SELFPAY | PROVIDERS: PCP Internal Medicine; Visit Provider Internal Medicine | DX: I10 Essential (primary) hypertension (principal); E03.9 Hypothyroidism, unspecified; E78.00 Pure hypercholesterolemia, unspecified; F41.1 Generalized anxiety disorder; G47.33 Obstructive sleep apnea (adult) (pediatric); L57.0 Actinic keratosis; E66.9 Obesity, unspecified; J45.909 Unspecified asthma, uncomplicated; M85.80 Other specified disorders of bone density and structure, unspecified site; M51.369 Other intervertebral disc degeneration, lumbar region without mention of lumbar back pain or lower extremity pain; Z23 Encounter for immunization; Z90.3 Acquired absence of stomach [part of]; Z99.89 Dependence on other enabling machines and devices; Z68.31 Body mass index [BMI] 31.0-31.9, adult | CPT/HCPCS: 90471; 90656; 99212 ==

== ENCOUNTER 2025-02-18 11:14 | Outpatient (REF) | payer OTHER, SELFPAY ==
[2025-02-18 11:32] LABS: MANUAL DIFF FLAG NO
[2025-02-18 12:26] LABS: Hematocrit 47.6 % (37.0-47.0); Hemoglobin 15.1 g/dl (12.0-16.0); Imm Gran Abs Auto 0.02 X10*3/uL (0.00-0.03); Imm Gran Pct Auto 0.3 % (0.0-0.4); Lymphocytes Absolute Auto 1.9 X10*3/uL (1.2-4.9); Mean Corpuscular HGB Conc 31.7 g/dl (31.0-35.0); Mean Corpuscular Hemoglobin 27.1 pg (27.0-33.0); Mean Corpuscular Volume 85.3 fL (80.0-98.0); NRBC Abs Auto 0.000 X10*3/uL (0.0-0.012); NRBC Pct Auto 0.0 /100WBC (0.0-0.2); Platelet Count 276 X10*3/uL (160-400); Red Blood Count 5.58 X10*6/uL (4.20-5.50); White Blood Count 5.9 X10*3/uL (4.8-10.8)
[2025-02-18 13:04] LABS: Alanine Aminotransferase 22 U/L (0-31); Albumin Level 4.4 g/dL (3.5-5.0); Alkaline Phosphatase 86 U/L (39-117); Anion Gap 10 (12-20); Aspartate Amino Transferase 21 U/L (5-31); Blood Urea Nitrogen 16 mg/dL (9-16); Calcium 10.0 mg/dL (8.4-10.2); Carbon Dioxide 31 mmol/L (22-29); Chloride 106 mmol/L (96-108); Estimated Glomerular Filt Rate > 60; Potassium 4.1 mmol/L (3.3-5.1); Sodium 143 mmol/L (135-145); Total Protein 7.3 g/dL (6.5-8.0)
[2025-02-18 13:23] LABS: Free T4 (Free Thyroxine) 1.21 ng/dL (0.71-1.85); Thyroid Stimulating Hormone 0.28 uIU/mL (0.32-4.0)
[2025-02-18 13:28] LABS: Folate 12.2 ng/mL (> or = 4.0); Vitamin B12 366 pg/mL (200-900)
--- OUTSIDE RECORDS SUMMARY | 2025-02-18 13:55 | XMS_ITS | Clinical Summary ---
Author Organization [facility] Address [address] [place] [address] Care Team Providers Care Water Jet Operator Name Role Phone Tory Lyle MD Primary Care Provider [phone] Social History Tobacco Use Types Packs/Day Years [...] age to complete this topic Care Teams Water Jet Operator Relationship Specialty Start Date End Date Tory Lyle MD [address] [place] [address] [address] [facility] [place] [address] PCP - General Internal Medicine 12/29/19
--- OUTSIDE RECORDS SUMMARY | 2025-02-18 13:55 | XMS_ITS | Clinical Summary ---
Author Organization [facility] ity Address [address] [place] [address] Care Team Providers Care Foundry Operator Name Role Phone Tory Lyle MD Primary Care Provider [phone] Social History Tobacco Use Types Packs/Day Years [...] Depression Screening 04/09/2024 COVID-19 Vaccine (1 - 2024-2 6 season) 2024 Influenza Vaccine (#1) 2024 RSV [...] age to complete this topic Care Teams Foundry Operator Relationship Specialty Start Date End Date Tory Lyle MD [address] [place] [address] [address] [facility] [place] [address] PCP - General Internal Medicine 12/29/19
== END 2025-02-18 11:15 | disposition home or self-care (01) ==
LOC: HO.LAB 11:14
PROVIDERS: PCP Internal Medicine; Visit Provider Internal Medicine
DX: R79.89 Other specified abnormal findings of blood chemistry (principal); B35.1 Tinea unguium; E78.00 Pure hypercholesterolemia, unspecified; E03.9 Hypothyroidism, unspecified
CPT/HCPCS: 36415; 80053; 82248; 82306; 82607; 82746; 84439; 84443; 85025

== ENCOUNTER 2025-03-31 10:35 | Outpatient (AMB) | payer OTHER, SELFPAY ==
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
[2025-03-31 11:25] VITALS: BP 122/72; RESP 18; TEMP 20; O2SAT 98; BMI 32.6
--- OUTSIDE RECORDS SUMMARY | 2025-03-31 11:54 | XMS_ITS | Clinical Summary ---
Author Organization [facility] Prior to 09/06/[address] [place] [id number] Care Team Providers Care Dough Panner Name Role Phone Tory Lyle MD Primary [...] age to complete this topic Care Teams Dough Panner Relationship Specialty Start Date End Date Tory Lyle MD [address] [place] [address] [address] [facility] [place] [address] PCP - General Internal Medicine 12/29/19
--- OUTSIDE RECORDS SUMMARY | 2025-03-31 11:54 | XMS_ITS | Clinical Summary ---
Author Organization [facility] ity Address [address] [place] [address] Care Team Providers Care Entry Level Management Name Role Phone Tory Lyle MD Primary Care Provider [phone] Social History Tobacco Use Types Packs/Day Years [...] age to complete this topic Care Teams Entry Level Management Relationship Specialty Start Date End Date Tory Lyle MD [address] [place] [address] [address] [facility] [place] [address] PCP - General Internal Medicine 12/29/19
== END 2025-03-31 12:01 | disposition home or self-care (01) ==
LOC: HO.HMCH 10:36
PROVIDERS: PCP Internal Medicine; Visit Provider Internal Medicine
DX: Z00.00 Encounter for general adult medical examination without abnormal findings (principal); G47.33 Obstructive sleep apnea (adult) (pediatric); J45.909 Unspecified asthma, uncomplicated; Z12.11 Encounter for screening for malignant neoplasm of colon; Z12.31 Encounter for screening mammogram for malignant neoplasm of breast; E66.9 Obesity, unspecified; Z90.3 Acquired absence of stomach [part of]; E03.9 Hypothyroidism, unspecified; F41.1 Generalized anxiety disorder; K64.9 Unspecified hemorrhoids

== ENCOUNTER → 2025-03-31 10:35 | Outpatient (BNVA) | payer OTHER, SELFPAY | PROVIDERS: PCP Internal Medicine; Visit Provider Internal Medicine | DX: Z00.00 Encounter for general adult medical examination without abnormal findings (principal); S20.219A Contusion of unspecified front wall of thorax, initial encounter; G47.33 Obstructive sleep apnea (adult) (pediatric); J45.909 Unspecified asthma, uncomplicated; E66.9 Obesity, unspecified; E03.9 Hypothyroidism, unspecified; M85.80 Other specified disorders of bone density and structure, unspecified site; F41.1 Generalized anxiety disorder; K64.9 Unspecified hemorrhoids; Z99.89 Dependence on other enabling machines and devices; Z79.899 Other long term (current) drug therapy | CPT/HCPCS: 99396 ==